=== PATIENT | female | born 1975 | race Caucasian/White ===

== ENCOUNTER 2016-10-25 09:17 | Emergency (ER) ==
[2016-10-25 09:21] VITALS: BP 153/92; TEMP 98.7; BMI 50.5
--- NOTE | 2016-10-25 09:29 | ED.PDOC ---
General ED Provider: Dr. OLGA BUENO JR Chief Complaint: Chest Pain Stated Complaint: patient states she has chest pain that woke her up at 0900. states it is constant and squeezing with occassionally sharp pains. denies radiation or any other symptoms with it. states she does have a headache.[End] 0900 98.7 74 16 97% 153/92 9/10 HEADACHE SINCE LAST NIGHT CENTRAL SHARP CHEST PAIN PLEURITIC HAS HAD CHRONIC COUGH INCREASED FOR PAST ONE WEEK Time Seen by Physician: 09:29 Mode of Arrival: Walk-In Information Source: Patient Exam Limitations: No limitations Nursing and Triage Documentation Reviewed and Agree: No Review of Systems - Review Of Systems Constitutional: Reports: Malaise Eyes: Reports: No symptoms Ears, Nose, Mouth, Throat: Reports: No symptoms Respiratory: Reports: Cough Cardiac: Reports: Chest pain (squeezing) GI: Reports: No symptoms : Reports: No symptoms Musculoskeletal: Reports: Other Skin: Reports: No symptoms Neurological: Reports: Headache Endocrine: Reports: No symptoms Hematologic/Lymphatic: Reports: No symptoms All Other Systems: Other Past Medical History - Past Medical History Endocrine: Reports: None Cardiovascular: Reports: Hypertension Respiratory: Reports: COPD, Asthma Hematological: Reports: None Gastrointestinal: Reports: GERD, Liver (HEPATITIS C), Other (chronic abd pain) Genitourinary: Reports: None Neuro/Psych: Reports: Migraine, Anxiety, Depression, Bipolar Disorder Musculoskeletal: Reports: Arthritis, Back Pain, Joint Pain (knee) Cancer: Reports: Other (uterine cancer) Last Menstrual Period: n/a Other Pertinent Past Medical History: CHRONIC BACK-pain;BACK AND KNEE PROBLEMS - Surgical History General Surgical History: Reports: Hysterectomy, Tubal ligation, Cholecystectomy , Tonsillectomy, Orthopedic (ARM AND HAND SURGERY) - Family History Family History: Reports: Unknown - Social History Smoking Status: Current every day smoker Hx Substance Use: Yes Alcohol Screening: None Physical Exam - Physical Exam Appearance: Well-appearing, Obese Pain Distress: Moderate ENT: Ears normal, Nose normal, Oropharynx normal Neck: Supple Respiratory: Rhonchi Cardiovascular: RRR, Pulses normal, No rub, No murmur GI/: Soft, Nontender, No masses, Bowel sounds normal, No Organomegaly Musculoskeletal: Normal strength, ROM intact, No edema, No calf tenderness Skin: Warm, Dry, Normal color Neurological: Sensation intact, Motor intact, Reflexes intact, Cranial nerves intact, Alert, Oriented Psychiatric: Affect appropriate, Mood appropriate Interpretation - Radiology Interpretation Radiology Interpretation By: Radiologist Radiology Results: Negative Exam Interpreted: Portable CXR Critical Care Note - Critical Care Note Total Time (mins): 5 Course - Course Hematology/Chemistry: 10/25/16 09:55 10/25/16 09:55 Orders, Labs, Meds: Lab Review 10/25/16 09:55 WBC 6.84 RBC 4.51 Hgb 14.0 Hct 42.3 MCV 93.8 MCH 31.0 MCHC 33.1 RDW Coeff of Miguel 13.2 Plt Count 210 Immature Gran % (Auto) 0.4 Neut % (Auto) 62.8 Lymph % (Auto) 26.8 [place] % (Auto) 5.7 Eos % (Auto) 3.9 Baso % (Auto) 0.4 Immature Gran # (Auto) 0.0 Neut # 4.3 Lymph # 1.8 [place] # 0.4 Eos # 0.3 Baso # 0.0 D-Dimer 258.63 H Sodium 142 Potassium 4.2 Chloride 106 Carbon Dioxide 26 Anion Gap 14.2 BUN 10 Creatinine 0.76 Estimated GFR (MDRD) 84.00 BUN/Creatinine Ratio 13.15 Glucose 103 Calcium 9.0 Total Bilirubin 0.26 AST 43 H ALT 49 Alkaline Phosphatase 126 H Total Creatine Kinase 90 Troponin I < 0.0100 B-Natriuretic Peptide 83 Total Protein 7.0 Albumin 3.2 L Globulin 3.8 Albumin/Globulin Ratio 0.84 Orders Category Date Time Status EKG-(ED ONLY) Stat CARDIO 10/25/16 09:48 Completed B-TYPE NATRIURETIC PEPTIDE Stat LAB 10/25/16 09:55 Completed CBC W/ AUTO DIFF Stat LAB 10/25/16 09:55 Completed COMPREHENSIVE METABOLIC PANEL Stat LAB 10/25/16 09:55 Completed CREATINE KINASE Stat LAB 10/25/16 09:55 Completed D-DIMER Stat LAB 10/25/16 09:55 Completed TROPONIN I Stat LAB 10/25/16 09:55 Completed Benzonatate [Tessalon Perles] MEDS 10/25/16 09:41 Discontinued 200 mg PO ONCE STA Butorphanol Tartrate [Stadol] MEDS 10/25/16 09:40 Discontinued 2 mg IVP ONCE STA Butorphanol Tartrate [Stadol] MEDS 10/25/16 10:59 Discontinued 2 mg IVP ONCE STA Diphenhydramine Inj [Benadryl] MEDS 10/25/16 09:36 Discontinued 50 mg IVP ONCE STA Methylprednisolone Sod Succ/Pf [Solu-Medrol 125 mg] MEDS 10/25/16 09:39 Discontinued 125 mg IVP ONCE STA CHEST, 1V AP ONLY Stat RADS 10/25/16 09:48 Completed Medications Discontinued Medications Generic Name Dose Route Start Last Admin Trade Name Olvin PRN Reason Stop Dose Admin Benzonatate 200 mg 10/25/16 09:41 10/25/16 09:49 Tessalon Perles PO 10/25/16 09:42 200 mg ONCE STA Administration Butorphanol Tartrate 2 mg 10/25/16 09:40 10/25/16 10:12 Stadol IVP 10/25/16 09:41 2 mg ONCE STA Administration Butorphanol Tartrate 2 mg 10/25/16 10:59 10/25/16 11:10 Stadol IVP 10/25/16 11:00 2 mg ONCE STA Administration Diphenhydramine HCl 50 mg 10/25/16 09:36 10/25/16 10:11 Benadryl IVP 10/25/16 09:37 50 mg ONCE STA Administration Methylprednisolone Sodium Succinate 125 mg 10/25/16 09:39 10/25/16 10:09 Solu-Medrol 125 Mg IVP 10/25/16 09:40 125 mg ONCE STA Administration Vital Signs: Temp Pulse Resp BP Pulse Ox 10/25/16 09:18 98.7 F 74 16 153/92 H 97 SARAH Risk Score SARAH Risk Score: Risk Score Odds of by 30D 0 0.1 (0.1-0.2) 1 0.3 (0.2-0.3) 2 0.4 (0.3-0.5) 3 0.7 (0.6-0.9) 4 1.2 (1.0-1.5) 5 2.2 (1.9-2.6) 6 3.0 (2.5-3.6) 7 4.8 (3.8-6.1) Departure - Departure Time of Disposition: 11:22 Disposition: HOME SELF-CARE Discharge Problem: Pleurisy, COPD exacerbation Instructions: How to Stop Smoking (ED), Acute Headache (ED), COPD (Chronic Obstructive Pulmonary Disease) (ED), Pleurisy (ED) Condition: Good Pt referred to PMD for follow-up: Yes Additional Instructions: increase fluids avoid tobacco smoke may use tessalon for cough follwo up wtih PMD 1 week sooner if fever or short of breath Prescriptions: Benzonatate [Tessalon Perles] 200 mg PO TID PRN #20 capsule PRN Reason: Cough Allergies/Adverse Reactions: Allergies acetaminophen [From [place]] Allergy (Unverified 10/25/16 09:22) swelling in feet and hands hydrocodone bitartrate [From [place]] Allergy (Unverified 10/25/16 09:22) swelling in feet and hands aspirin Adverse Reaction (Unverified 10/25/16 09:22) codeine Adverse Reaction (Verified 10/25/16 09:30) ketorolac [From Toradol] Adverse Reaction (Verified 10/25/16 09:22) Swelling Penicillins Adverse Reaction (Unverified 10/25/16 09:22) sumatriptan [From Imitrex] Adverse Reaction (Unverified 10/25/16 09:22) "messes with my heart" sumatriptan succinate [From Imitrex] Adverse Reaction (Unverified 10/25/16 09:22 ) "messes with my heart" tramadol [From Ultram] Adverse Reaction (Verified 10/25/16 09:22) Hives patient states she is not actually allergic to this Home Medications: Ambulatory Orders Budesonide/Formoterol Fumarate [Symbicort 80-4.5 Mcg Inhaler] 2 puff IH BID Fluticasone Propionate [Flonase] 1 spray NS DAILY 11/01/15 Ipratropium/Albuterol Sulfate [Combivent Respimat Inhal [place]] 1 spray IH BID Multivitamin [Daily Multiple Vitamin] 1 each PO DAILY 11/01/15 Prazosin HCl 3 mg PO BEDTIME 11/01/15 Venlafaxine HCl [Effexor] 75 mg PO DAILY 04/08/16 Benztropine Mesylate [Cogentin] 0.5 mg PO BID 08/04/16 Haloperidol 1 tab PO BID 08/04/16 Lamotrigine [Lamictal] 2 tab PO BID 08/04/16 Loratadine 10 mg PO DAILY 08/04/16 Omeprazole [Prilosec] 20 mg PO ONCE 08/04/16 Tizanidine HCl 1 tab PO BID 08/04/16 Topiramate [Topamax] 1 tab PO BID 08/04/16 Methocarbamol [Robaxin] 500 mg PO TID PRN #14 tablet 08/23/16 Benzonatate [Tessalon Perles] 200 mg PO TID PRN #20 capsule 10/25/16
[2016-10-25] MEDS ORDERED: SOLU-MEDROL 125 MG 125 MG in SODIUM CHLORIDE 50 ML IV ONE (09:36)
[2016-10-25] MEDS ORDERED: BENADRYL IVP STA (09:36)
[2016-10-25] MEDS ORDERED: SOLU-MEDROL 125 MG IVP STA (09:39)
[2016-10-25] MEDS ORDERED: STADOL IVP STA ×2 (09:40→10:59)
[2016-10-25] MEDS ORDERED: TESSALON PERLES PO STA (09:41)
[2016-10-25 10:06] LABS: BASOPHILS % (AUTO) 0.4 % (0.0-3.0); EOSINOPHILS # (AUTO) 0.3 K/ul (0.0-0.7); EOSINOPHILS % (AUTO) 3.9 % (0.0-7.0); HEMATOCRIT 42.3 % (37.0-47.0); IMMATURE GRANULOCYTE % (AUTO) 0.4 % (0.0-5.0); LYMPHOCYTES # (AUTO) 1.8 K/uL (0.60-3.4); LYMPHOCYTES % (AUTO) 26.8 (10.0-50.0); MEAN CORPUSCULAR HGB CONC 33.1 (31.8-35.4); MEAN CORPUSCULAR VOLUME 93.8 fl (81.0-99.0); MONOCYTES # (AUTO) 0.4 K/uL (0.4-2.0); MONOCYTES % (AUTO) 5.7 (0-10); NEUTROPHILS # (AUTO) 4.3 K/ul (2.0-6.9); NEUTROPHILS % (AUTO) 62.8; PLATELET COUNT 210 10^3/uL (140-440); RED BLOOD COUNT 4.51 10^6/ul (4.20-5.40); WHITE BLOOD COUNT 6.84 K/ul (4.6-10.2)
--- NOTE | 2016-10-25 10:22 | DI ---
EXAM: Single view of the chest. History: Chest pain. Comparison: Chest radiograph 11/01/2015 Findings: Heart size is normal. No focal consolidation. No appreciable pleural fluid and no pneum othorax. No acute osseous abnormalities. Impression: No acute cardiopulmonary process.
[2016-10-25 10:33] LABS: ALANINE AMINOTRANSFERASE 49 U/L (12-78); ALBUMIN 3.2 g/dL (3.4-5.0); ALBUMIN/GLOBULIN RATIO 0.84; ALKALINE PHOSPHATASE 126 U/L (42-98); ANION GAP 14.2; ASPARTATE AMINO TRANSFERASE 43 U/L (15-37); BILIRUBIN,TOTAL 0.26 mg/dL (0.00-1.20); BLOOD UREA NITROGEN 10 mg/dL (7-18); BUN/CREATININE RATIO 13.15; CARBON DIOXIDE 26 mmol/L (21-32); CHLORIDE 106 mmol/L (98-107); CREATINE KINASE 90 U/L; CREATININE 0.76 mg/dL (0.60-1.30); GLUCOSE 103 mg/dL (70-110); POTASSIUM 4.2 mmol/L (3.5-5.10); SODIUM 142 mmol/L (136-145)
== END 2016-10-25 11:46 | disposition home or self-care (01) ==
LOC: ED 09:17
DX: R09.1 Pleurisy (principal); J44.1 Chronic obstructive pulmonary disease with (acute) exacerbation; R51 Headache; F17.210 Nicotine dependence, cigarettes, uncomplicated; R07.9 Chest pain, unspecified; I10 Essential (primary) hypertension; Z79.899 Other long term (current) drug therapy
CPT/HCPCS: 36415; 80053; 82550; 83880; 84484; 85025; 85379; 93005; 93010; 96374; 96375; 96376; 99283

== ENCOUNTER 2016-11-01 14:18 | Emergency (ER) | payer OTHER ==
[2016-11-01 14:18] VITALS: BMI 50.5
[2016-11-01 14:26] VITALS: BP 116/80; TEMP 99.3
[2016-11-01] MEDS ORDERED: NORCO 10-325 PO STA (15:33)
--- NOTE | 2016-11-01 16:34 | CT ---
EXAM: CT lumbar spine without contrast HISTORY: Pain, fall COMPARISON: 01/01/2016 TECHNIQUE: Performed without intravenous contrast. Coronal and sagittal reformatted images obtaine d. FINDINGS: The vertebral bodies are normal in height. No fracture. No subluxation. Multilevel mar ginal osteophyte formation. Mild multilevel intervertebral disc is narrowing Moderate intervertebra l space and T11-C12 and mild to moderate intervertebral disc is narrowing L3-L4 and L4-L5. Sacroili ac joints intact. Aorta normal in caliber. One or two right renal calculi measuring approximate 1 mm. T12-L1: No central canal or neural foramen. L1-L2: No central canal or neural foraminal narrowing. L2-L3: No central canal or neural foramen. L3-L4: Posterior disc osteophyte complex and facet arthrosis causing mild bilateral neural foramina l narrowing. L4-L5: Posterior disc osteophyte complex and facet arthrosis causing moderate bilateral neural fora men. L5-S1: Posterior disc osteophyte complex and facet arthrosis causing mild bilateral neural foramina . IMPRESSION: 1. No fracture or subluxation. 2. Chronic discogenic degenerative disease and facet arthrosis. 3. Punctate right nephrolithiasis. No hydronephrosis.
--- NOTE | 2016-11-01 16:40 | ED.PDOC ---
General ED Provider: Dr. SOHAM GEIGER Chief Complaint: Fall Stated Complaint: fall , l spine pain Time Seen by Physician: 14:30 (no neck pain no thoracic pain) Mode of Arrival: Walk-In Information Source: Patient Exam Limitations: No limitations Primary Care Provider: STEPHANIE FLORES Nursing and Triage Documentation Reviewed and Agree: Yes Review of Systems - Review Of Systems Constitutional: Reports: No symptoms Eyes: Reports: No symptoms Ears, Nose, Mouth, Throat: Reports: No symptoms Respiratory: Reports: No symptoms Cardiac: Reports: No symptoms GI: Reports: No symptoms : Reports: No symptoms Musculoskeletal: Reports: Back pain Skin: Reports: No symptoms Neurological: Reports: No symptoms Endocrine: Reports: No symptoms Hematologic/Lymphatic: Reports: No symptoms All Other Systems: Reviewed and Negative Past Medical History - Past Medical History Endocrine: Reports: None Cardiovascular: Reports: Hypertension Respiratory: Reports: COPD, Asthma Hematological: Reports: None Gastrointestinal: Reports: GERD, Liver (HEPATITIS C), Other (chronic abd pain) Genitourinary: Reports: None Neuro/Psych: Reports: Migraine, Anxiety, Depression, Bipolar Disorder Musculoskeletal: Reports: Arthritis, Back Pain, Joint Pain (knee) Cancer: Reports: Other (uterine cancer) Last Menstrual Period: NA Other Pertinent Past Medical History: CHRONIC BACK-pain;BACK AND KNEE PROBLEMS - Surgical History General Surgical History: Reports: Hysterectomy, Tubal ligation, Cholecystectomy , Tonsillectomy, Orthopedic (ARM AND HAND SURGERY) - Family History Family History: Reports: Unknown - Social History Smoking Status: Current every day smoker Hx Substance Use: No Alcohol Screening: None - Immunizations Tetanus Shot up to Date: No Physical Exam - Physical Exam Appearance: Well-appearing, No pain distress, Well-nourished Eyes: LEONORA, EOMI, Conjunctiva clear ENT: Ears normal, Nose normal, Oropharynx normal Respiratory: Airway patent, Breath sounds clear, Breath sounds equal, Respirations nonlabored Cardiovascular: RRR, Pulses normal, No rub, No murmur GI/: Soft, Nontender, No masses, Bowel sounds normal, No Organomegaly Musculoskeletal: Normal strength, ROM intact, No edema, No calf tenderness Skin: Warm, Dry, Normal color Neurological: Sensation intact, Motor intact, Reflexes intact, Cranial nerves intact, Alert, Oriented Psychiatric: Affect appropriate, Mood appropriate Interpretation - Radiology Interpretation Radiology Interpretation By: Radiologist Critical Care Note - Critical Care Note Total Time (mins): 0 Course - Course Orders, Labs, Meds: Orders Category Date Time Status Hydrocodone Bit/Acetaminophen [[place] 10-325] MEDS 11/01/16 15:33 Discontinued 1 tab PO ONCE STA CT LUMBAR SPINE W/O CONTRAST Stat RADS 11/01/16 15:34 Completed Medications Discontinued Medications Generic Name Dose Route Start Last Admin Trade Name Freq PRN Reason Stop Dose Admin Acetaminophen/Hydrocodone Bitart 1 tab 11/01/16 15:33 11/01/16 15:54 [place] 10-325 PO 11/01/16 15:34 1 tab ONCE STA Administration Vital Signs: Temp Pulse Resp BP Pulse Ox 11/01/16 14:23 99.3 F 85 18 116/80 95 Departure - Departure Time of Disposition: 17:00 Disposition: HOME SELF-CARE Discharge Problem: Low back pain Qualifiers: Chronicity: unspecified Instructions: Back Pain (ED), Acute Low Back Pain (ED) Condition: Good Pt referred to PMD for follow-up: No Additional Instructions: Please call your Family Physician as soon as possible to schedule a follow-up appointment. Prescriptions: Hydrocodone/Acetaminophen [[place] 5-325 Tablet] 1 each PO Q6HR PRN #3 tablet PRN Reason: PAIN Allergies/Adverse Reactions: Allergies aspirin Adverse Reaction (Unverified 10/25/16 09:22) codeine Adverse Reaction (Verified 10/25/16 09:30) ketorolac [From Toradol] Adverse Reaction (Verified 10/25/16 09:22) Swelling Penicillins Adverse Reaction (Unverified 10/25/16 09:22) sumatriptan [From Imitrex] Adverse Reaction (Unverified 10/25/16 09:22) "messes with my heart" sumatriptan succinate [From Imitrex] Adverse Reaction (Unverified 10/25/16 09:22 ) "messes with my heart" tramadol [From Ultram] Adverse Reaction (Verified 10/25/16 09:22) Hives patient states she is not actually allergic to this Home Medications: Ambulatory Orders Budesonide/Formoterol Fumarate [Symbicort 80-4.5 Mcg Inhaler] 2 puff IH BID Fluticasone Propionate [Flonase] 1 spray NS DAILY 11/01/15 Ipratropium/Albuterol Sulfate [Combivent Respimat Inhal [place]] 1 spray IH BID Multivitamin [Daily Multiple Vitamin] 1 each PO DAILY 11/01/15 Prazosin HCl 3 mg PO BEDTIME 11/01/15 Venlafaxine HCl [Effexor] 75 mg PO DAILY 04/08/16 Benztropine Mesylate [Cogentin] 0.5 mg PO BID 08/04/16 Haloperidol 1 tab PO BID 08/04/16 Lamotrigine [Lamictal] 2 tab PO BID 08/04/16 Loratadine 10 mg PO DAILY 08/04/16 Omeprazole [Prilosec] 20 mg PO ONCE 08/04/16 Tizanidine HCl 1 tab PO BID 08/04/16 Topiramate [Topamax] 1 tab PO BID 08/04/16 Hydrocodone/Acetaminophen [[place] 5-325 Tablet] 1 each PO Q6HR PRN #3 tablet
== END 2016-11-01 16:49 | disposition home or self-care (01) ==
LOC: ED 14:18
DX: M54.5 Low back pain (principal); W19.XXXA Unspecified fall, initial encounter; F17.210 Nicotine dependence, cigarettes, uncomplicated
CPT/HCPCS: 99283

== ENCOUNTER 2016-11-22 08:53 | Emergency (ER) ==
[2016-11-22 08:59] VITALS: BP 131/82; TEMP 100.1; BMI 63.3
--- NOTE | 2016-11-22 09:25 | ED.PDOC ---
General ED Provider: Dr. SOHAM GEIGER Chief Complaint: Back Pain Stated Complaint: low back pain Time Seen by Physician: 09:00 (may present at all times ) Information Source: Patient Exam Limitations: No limitations Primary Care Provider: STEPHANIE FLORES Nursing and Triage Documentation Reviewed and Agree: Yes Musculoskeletal Complaint Exam - Back Pain Complaint/Exam Mechanism of Injury: Reports: No known trauma Onset/Duration: 1day after lifting Symptoms Are: Still present Timing: Constant Episodes Lasting: Hours Initial Severity: Moderate Current Severity: Moderate Character: Reports: Aching, Throbbing, Spasmodic Aggravating: Reports: Movements, Lifting, Bending, Walking Alleviating: Reports: Rest, Position Associated Signs and Symptoms: Denies: Swelling, Redness, Bruising, Fever, Weakness, Numbness, Tingling, Abdominal pain, Flank pain, Bladder incontinence, Bowel incontinence, Weight loss, Pain with weight bearing Related History: Reports: Similar episode TAD Risk Factors: Reports: None Cauda Equina Risk Factors: Reports: None Epidural Abcess Risk Factors: Reports: None Related Surgical History: Reports: None Focal Tenderness: No Paraspinal Muscle Tenderness: No Paraspinal Muscle Spasm: No Scoliosis: No Lordosis: No Kyphosis: No SLR Test: Right Negative, Left Negative Hip Motion Testing Pain: Right Negative, Left Negative Focal Weakness: Present: None Focal Sensory Loss: Present: None Gait: Present: Normal Differential Diagnoses: Strain, Sprain Review of Systems - Review Of Systems Constitutional: Reports: No symptoms Eyes: Reports: No symptoms Ears, Nose, Mouth, Throat: Reports: No symptoms Respiratory: Reports: No symptoms Cardiac: Reports: No symptoms GI: Reports: No symptoms : Reports: No symptoms Musculoskeletal: Reports: Back pain Skin: Reports: No symptoms Neurological: Reports: No symptoms Endocrine: Reports: No symptoms Hematologic/Lymphatic: Reports: No symptoms All Other Systems: Reviewed and Negative Past Medical History - Past Medical History Endocrine: Reports: None Cardiovascular: Reports: Hypertension Respiratory: Reports: COPD, Asthma Hematological: Reports: None Gastrointestinal: Reports: GERD, Liver (HEPATITIS C), Other (chronic abd pain) Genitourinary: Reports: None Neuro/Psych: Reports: Migraine, Anxiety, Depression, Bipolar Disorder Musculoskeletal: Reports: Arthritis, Back Pain, Joint Pain (knee) Cancer: Reports: Other (uterine cancer) Last Menstrual Period: hysterectomy Other Pertinent Past Medical History: CHRONIC BACK-pain;BACK AND KNEE PROBLEMS - Surgical History General Surgical History: Reports: Hysterectomy, Tubal ligation, Cholecystectomy , Tonsillectomy, Orthopedic (ARM AND HAND SURGERY) - Family History Family History: Reports: Unknown - Social History Smoking Status: Current every day smoker Hx Substance Use: No Alcohol Screening: None Physical Exam - Physical Exam Appearance: Well-appearing, No pain distress, Well-nourished Eyes: LEONORA, EOMI, Conjunctiva clear ENT: Ears normal, Nose normal, Oropharynx normal Respiratory: Airway patent, Breath sounds clear, Breath sounds equal, Respirations nonlabored Cardiovascular: RRR, Pulses normal, No rub, No murmur GI/: Soft, Nontender, No masses, Bowel sounds normal, No Organomegaly Musculoskeletal: Normal strength, ROM intact, No edema, No calf tenderness Skin: Warm, Dry, Normal color Neurological: Sensation intact, Motor intact, Reflexes intact, Cranial nerves intact, Alert, Oriented Psychiatric: Affect appropriate, Mood appropriate Critical Care Note - Critical Care Note Total Time (mins): 0 Course - Course Vital Signs: Temp Pulse Resp BP Pulse Ox 11/22/16 08:53 100.1 F H 119 H 20 131/82 97 Departure - Departure Time of Disposition: 09:24 Disposition: HOME SELF-CARE Discharge Problem: Backache Instructions: Back Pain (ED), Low Back Strain (ED) Condition: Good Pt referred to PMD for follow-up: Yes Additional Instructions: Please call your Family Physician as soon as possible to schedule a follow-up appointment. Allergies/Adverse Reactions: Allergies aspirin Adverse Reaction (Verified 11/22/16 09:01) codeine Adverse Reaction (Verified 11/22/16 09:01) ketorolac [From Toradol] Adverse Reaction (Verified 11/22/16 09:01) Swelling Penicillins Adverse Reaction (Verified 11/22/16 09:01) sumatriptan [From Imitrex] Adverse Reaction (Verified 11/22/16 09:01) "messes with my heart" sumatriptan succinate [From Imitrex] Adverse Reaction (Verified 11/22/16 09:01) "messes with my heart" tramadol [From Ultram] Adverse Reaction (Verified 11/22/16 09:01) Hives patient states she is not actually allergic to this Home Medications: Ambulatory Orders Budesonide/Formoterol Fumarate [Symbicort 80-4.5 Mcg Inhaler] 2 puff IH BID Fluticasone Propionate [Flonase] 1 spray NS DAILY 11/01/15 Ipratropium/Albuterol Sulfate [Combivent Respimat Inhal [place]] 1 spray IH BID Multivitamin [Daily Multiple Vitamin] 1 each PO DAILY 11/01/15 Prazosin HCl 3 mg PO BEDTIME 11/01/15 Venlafaxine HCl [Effexor] 75 mg PO DAILY 04/08/16 Benztropine Mesylate [Cogentin] 0.5 mg PO BID 08/04/16 Haloperidol 1 tab PO BID 08/04/16 Lamotrigine [Lamictal] 2 tab PO BID 08/04/16 Loratadine 10 mg PO DAILY 08/04/16 Omeprazole [Prilosec] 20 mg PO ONCE 08/04/16 Tizanidine HCl 1 tab PO BID 08/04/16 Topiramate [Topamax] 1 tab PO BID 08/04/16 Hydrocodone/Acetaminophen [[place] 5-325 Tablet] 1 each PO Q6HR PRN #7 tablet 04/02 Disposition Discussed With: Patient
== END 2016-11-22 09:31 | disposition home or self-care (01) ==
LOC: ED 08:53
DX: M54.5 Low back pain (principal); F17.210 Nicotine dependence, cigarettes, uncomplicated
CPT/HCPCS: 99282

== ENCOUNTER 2016-11-24 06:55 | Outpatient (CLI) ==
[2016-11-24 07:17] VITALS: BMI 58.1
== END 2016-11-24 06:56 ==
LOC: AMBL 06:55
PROVIDERS: ATTEND Family Medicine
DX: M54.5 Low back pain (principal)

== ENCOUNTER 2016-11-24 07:08 | Emergency (ER) ==
[2016-11-24 07:17] VITALS: BP 107/82; TEMP 97.6; BMI 58.1
--- NOTE | 2016-11-24 07:51 | ED.PDOC ---
General ED Provider: Dr. OLGA BUENO JR Chief Complaint: Back Pain Stated Complaint: SEVERE LOW BACK PAIN. RADIATES DOWN BOTH LEGS - LEFT WORSE THAN RIGHT. BOTH FEET SWOLLEN. DIFFICULTY WALKING.[End]97.6 84 20 97% 107/82 07/26 BACK PAIN AND FEET SWELLING. APPT WITH PAIN MANAGEMENT [End]FEET SWOLLEN.[End]. r l leg lower lmbar. NEURONTIN AT 0600. . 11/01/16 Hydrocodone Bit/Acetaminophen [[place] 10-325]MEDS 11/01/16 STA. 11/01/16 CT LUMBAR SPINE W/O CONTRAST StatRADS 11/01. ---. 10/25/16 Benzonatate 200 mg 10/25/16 STA. 10/25/16 Butorphanol Tartrate 2 mg 10/25/16 STA. 10/25/16 Butorphanol Tartrate 2 mg 10/25/16 STA. 10/25/16 Benadryl IVP 10/25/16 09:37 50 mg. STA. 10/25/16 Methylprednisolone Sodium Succinate 125 mg 10/25/16 STA. ---. 10/12/16 Diphenhydramine HCl 50 mg 10/12/16 STA. 10/12/16 Sodium Chloride IV 10/12/16 1,000 BOLUS STA. 10/12 Methylprednisolone Sodium Succinate 125 mg 10/12/16 STA. ----. 08/25/16 Albuterol/Ipratropium 1 vial 08/25/16 STA. 08/25/16 Dexamethasone Sodium Phosphate 8 mg 08/25/16 STA. --. 08/23/16 Toradol IM 08/23/16 60 mg STA. 05/01 Morphine Sulfate 4 mg 08/23/16 STA. 08/23/16 Promethazine HCl 25 mg 08/23 Time Seen by Physician: 07:51 Mode of Arrival: Ambulance Information Source: Patient, EMT Exam Limitations: No limitations Primary Care Provider: STEPHANIE FLORES Nursing and Triage Documentation Reviewed and Agree: No Review of Systems - Review Of Systems Constitutional: Reports: Malaise, Weakness Eyes: Reports: No symptoms Ears, Nose, Mouth, Throat: Reports: No symptoms Respiratory: Reports: No symptoms Cardiac: Reports: No symptoms GI: Reports: No symptoms : Reports: No symptoms Musculoskeletal: Reports: Other Skin: Reports: No symptoms Neurological: Reports: Tingling, Weakness, Other (pain down left leg) Endocrine: Reports: Other Hematologic/Lymphatic: Reports: No symptoms All Other Systems: Other Past Medical History - Past Medical History Endocrine: Reports: None Cardiovascular: Reports: Hypertension Respiratory: Reports: COPD, Asthma Hematological: Reports: None Gastrointestinal: Reports: GERD, Liver (HEPATITIS C), Other (chronic abd pain) Genitourinary: Reports: None Neuro/Psych: Reports: Migraine, Anxiety, Depression, Bipolar Disorder Musculoskeletal: Reports: Arthritis, Back Pain, Joint Pain (knee) Cancer: Reports: Other (uterine cancer) Last Menstrual Period: NA Other Pertinent Past Medical History: CHRONIC BACK-pain;OSTEOSPONDILITS;BACK AND KNEE PROBLEMS - Surgical History General Surgical History: Reports: Hysterectomy, Tubal ligation, Cholecystectomy , Tonsillectomy, Orthopedic (ARM AND HAND SURGERY) - Family History Family History: Reports: Unknown - Social History Smoking Status: Former smoker Hx Substance Use: No Alcohol Screening: None Physical Exam - Physical Exam Appearance: Ill-appearing, Obese Ill-appearing: Moderate Pain Distress: Moderate Eyes: LEONORA, EOMI, Conjunctiva clear ENT: Ears normal, Nose normal, Oropharynx normal Neck: Supple Respiratory: Airway patent, Breath sounds clear, Breath sounds equal, Respirations nonlabored Cardiovascular: RRR, Pulses normal, No rub, No murmur GI/: Soft Musculoskeletal: Normal strength, ROM intact, No edema, No calf tenderness Skin: Warm, Dry, Normal color Neurological: Sensation intact, Motor intact, Cranial nerves intact (note leg symptoms), Alert, Oriented Psychiatric: Depressed Critical Care Note - Critical Care Note Total Time (mins): 0 Course - Course Orders, Labs, Meds: Lab Review 11/24/16 07:47 Urine Color Yellow Urine Clarity Clear Urine pH 7.0 Ur Specific Helper 1.010 Urine Protein Negative Urine Glucose (UA) Negative Urine Ketones Negative Urine Blood Negative Urine Nitrite Negative Urine Bilirubin Negative Urine Urobilinogen 0.2 Ur Leukocyte Esterase Negative Orders Category Date Time Status ED IV/MEDIPORT/POWERPORT .ONCE EMERGENCY 11/24/16 08:08 Active URINALYSIS C & S IF INDICATED Stat LAB 11/24/16 07:47 Completed 0.9 % Sodium Chloride [Saline Flush] MEDS 11/24/16 08:08 Active 1 syr IVF PRN PRN Ketorolac Tromethamine [Toradol] MEDS 11/24/16 08:08 Discontinued 30 mg IVP ONCE STA Ondansetron HCl/Pf [Zofran 4 mg/2 ml] MEDS 11/24/16 08:08 Discontinued 4 mg IVP ONCE STA Medications Generic Name Dose Route Start Last Admin Trade Name Freq PRN Reason Stop Dose Admin Sodium Chloride 1 syr 11/24/16 08:08 Saline Flush IVF PRN PRN To flush IV Discontinued Medications Generic Name Dose Route Start Last Admin Trade Name Freq PRN Reason Stop Dose Admin Ketorolac Tromethamine 30 mg 11/24/16 08:08 Toradol IVP 11/24/16 08:09 ONCE STA Ondansetron HCl 4 mg 11/24/16 08:08 Zofran 4 Mg/2 Ml IVP 11/24/16 08:09 ONCE STA Vital Signs: Temp Pulse Resp BP Pulse Ox 11/24/16 07:11 97.6 F 84 20 107/82 97 Departure - Departure Time of Disposition: 09:25 Disposition: HOME SELF-CARE Discharge Problem: Back pain with left-sided sciatica Instructions: Sciatica (ED), Lower Back Exercises (ED) Condition: Fair Pt referred to PMD for follow-up: Yes Additional Instructions: call PMD follow up for increased pain, discuss MRI if indicated follow up with pain management as scheduled avoid high carbohydrate foods, NO SUGAR, after steroid shots home medication for pain may add benadryl to help pain meds return if worse Allergies/Adverse Reactions: Allergies aspirin Adverse Reaction (Verified 11/24/16 07:10) codeine Adverse Reaction (Verified 11/24/16 07:10) Penicillins Adverse Reaction (Verified 11/24/16 07:10) sumatriptan [From Imitrex] Adverse Reaction (Verified 11/24/16 07:10) "messes with my heart" sumatriptan succinate [From Imitrex] Adverse Reaction (Verified 11/24/16 07:10) "messes with my heart" tramadol [From Ultram] Adverse Reaction (Verified 11/24/16 07:10) Hives patient states she is not actually allergic to this Home Medications: Ambulatory Orders Budesonide/Formoterol Fumarate [Symbicort 80-4.5 Mcg Inhaler] 2 puff IH BID Fluticasone Propionate [Flonase] 1 spray NS DAILY 11/01/15 Ipratropium/Albuterol Sulfate [Combivent Respimat Inhal [place]] 1 spray IH BID Multivitamin [Daily Multiple Vitamin] 1 each PO DAILY 11/01/15 Prazosin HCl 3 mg PO BEDTIME 11/01/15 Venlafaxine HCl [Effexor] 75 mg PO DAILY 04/08/16 Benztropine Mesylate [Cogentin] 0.5 mg PO BID 08/04/16 Haloperidol 1 tab PO BID 08/04/16 Lamotrigine [Lamictal] 2 tab PO BID 08/04/16 Loratadine 10 mg PO DAILY 08/04/16 Omeprazole [Prilosec] 20 mg PO ONCE 08/04/16 Tizanidine HCl 1 tab PO BID 08/04/16 Topiramate [Topamax] 1 tab PO BID 08/04/16 Hydrocodone/Acetaminophen [[place] 5-325 Tablet] 1 each PO Q6HR PRN #7 tablet 04/02 Diphenhydramine HCl [Benadryl] 25 mg PO QID #30 capsule 11/24/16
[2016-11-24 07:54] LABS: BILIRUBIN,URINE Negative (NEGATIVE); KETONES,URINE Negative (NEGATIVE); LEUKOCYTE ESTERASE ,URINE Negative (NEGATIVE); NITRITE,URINE Negative (NEGATIVE); PROTEIN,URINE Negative (NEGATIVE); URINE, BLOOD Negative (NEGATIVE)
[2016-11-24 07:55] LABS: ADD URINE MICROSCOPIC NO
[2016-11-24] MEDS ORDERED: ZOFRAN 4 MG/2 ML IVP STA (08:08)
[2016-11-24] MEDS ORDERED: TORADOL IVP STA (08:08)
[2016-11-24] MEDS ORDERED: ZOFRAN 4 MG/2 ML IM STA (08:26)
[2016-11-24] MEDS ORDERED: TORADOL IM STA (08:26)
== END 2016-11-24 10:24 | disposition home or self-care (01) ==
LOC: ED 07:08
DX: M54.42 Lumbago with sciatica, left side (principal)
CPT/HCPCS: 81001; 96372; 99283

== ENCOUNTER 2016-12-01 08:50 | Emergency (ER) ==
[2016-12-01 08:57] VITALS: BP 143/86; TEMP 98.1; BMI 56.7
--- NOTE | 2016-12-01 09:27 | DI ---
EXAM: Right hand Three-view HISTORY: Pain COMPARISON: None FINDINGS: No acute fracture dislocation. Remodeling fifth metacarpal suggested, may be due to old trauma. The joints are normal. No focal soft tissue abnormality. IMPERSSION: Normal examination.
--- NOTE | 2016-12-01 09:30 | DI ---
EXAM: Three views of the left wrist HISTORY: Left wrist pain. COMPARISON: Same day left hand x-ray FINDINGS: There is no cortical irregularity or displaced fracture of the left wrist. Radiocarpal juan int is unremarkable. There is no lytic or blastic lesion identified. The carpal bones are unremark able. Metacarpals are unremarkable. Soft tissues are normal. IMPRESSION: No acute abnormality or displaced fracture of the left wrist.
--- NOTE | 2016-12-01 10:32 | ED.PDOC ---
General ED Provider: Dr. SOHAM GEIGER Chief Complaint: Extremity Pain/Injury Stated Complaint: left wrist and hand injury Time Seen by Physician: 09:00 (seen with nursing staff) Mode of Arrival: Walk-In Information Source: Patient Exam Limitations: No limitations Primary Care Provider: STEPHANIE FLORES Nursing and Triage Documentation Reviewed and Agree: Yes Musculoskeletal Complaint Exam - Hand/Wrist Complaint/Exam Location of Pain: Reports: Left, Hand, Wrist Mechanism of Injury: Reports: No known trauma Onset/Duration: 9 am Symptoms Are: Still present Initial Severity: Moderate Current Severity: Mild Location: Reports: Discrete Character: Reports: Dull, Aching Alleviating: Reports: None Aggravating: Reports: None Associated Signs and Symptoms: Denies: Swelling, Redness, Bruising, Fever, Weakness, Numbness, Tingling Related History: Reports: Similar episode (no snuff box pain) Review of Systems - Review Of Systems Constitutional: Reports: No symptoms Eyes: Reports: No symptoms Ears, Nose, Mouth, Throat: Reports: No symptoms Respiratory: Reports: No symptoms Cardiac: Reports: No symptoms GI: Reports: No symptoms : Reports: No symptoms Musculoskeletal: Reports: Joint pain (left wrist) Skin: Reports: No symptoms Neurological: Reports: No symptoms Endocrine: Reports: No symptoms Hematologic/Lymphatic: Reports: No symptoms All Other Systems: Reviewed and Negative Past Medical History - Past Medical History Endocrine: Reports: None Cardiovascular: Reports: Hypertension Respiratory: Reports: COPD, Asthma Hematological: Reports: None Gastrointestinal: Reports: GERD, Liver (HEPATITIS C), Other (chronic abd pain) Genitourinary: Reports: None Neuro/Psych: Reports: Migraine, Anxiety, Depression, Bipolar Disorder Musculoskeletal: Reports: Arthritis, Back Pain, Joint Pain (knee) Cancer: Reports: Other (uterine cancer) Last Menstrual Period: none Other Pertinent Past Medical History: CHRONIC BACK-pain;OSTEOSPONDILITS;BACK AND KNEE PROBLEMS - Surgical History General Surgical History: Reports: Hysterectomy, Tubal ligation, Cholecystectomy , Tonsillectomy, Orthopedic (ARM AND HAND SURGERY) - Family History Family History: Reports: Unknown - Social History Smoking Status: Former smoker Hx Substance Use: No Alcohol Screening: None Physical Exam - Physical Exam Appearance: Well-appearing, No pain distress, Well-nourished Eyes: LEONORA, EOMI, Conjunctiva clear ENT: Ears normal, Nose normal, Oropharynx normal Respiratory: Airway patent, Breath sounds clear, Breath sounds equal, Respirations nonlabored Cardiovascular: RRR, Pulses normal, No rub, No murmur GI/: Soft, Nontender, No masses, Bowel sounds normal, No Organomegaly Musculoskeletal: Normal strength, ROM intact, No edema, No calf tenderness Skin: Warm, Dry, Normal color Neurological: Sensation intact, Motor intact, Reflexes intact, Cranial nerves intact, Alert, Oriented Psychiatric: Affect appropriate, Mood appropriate Interpretation - Radiology Interpretation Radiology Interpretation By: Radiologist Radiology Results: No acute changes Critical Care Note - Critical Care Note Total Time (mins): 0 Course - Course Orders, Labs, Meds: Orders Category Date Time Status HAND, LEFT 3 VIEWS Stat RADS 12/01/16 08:59 Completed WRIST, LEFT 3 VIEWS Stat RADS 12/01/16 08:59 Completed Vital Signs: Temp Pulse Resp BP Pulse Ox 12/01/16 08:51 98.1 F 110 H 18 143/86 H 97 Departure - Departure Time of Disposition: 10:32 Disposition: HOME SELF-CARE Discharge Problem: Left wrist pain, Left hand pain Instructions: Wrist Sprain (ED) Condition: Good Pt referred to PMD for follow-up: No Additional Instructions: Please call your Family Physician as soon as possible to schedule a follow-up appointment. Allergies/Adverse Reactions: Allergies aspirin Adverse Reaction (Verified 12/01/16 08:57) codeine Adverse Reaction (Verified 12/01/16 08:57) Penicillins Adverse Reaction (Verified 12/01/16 08:57) sumatriptan [From Imitrex] Adverse Reaction (Verified 12/01/16 08:57) "messes with my heart" sumatriptan succinate [From Imitrex] Adverse Reaction (Verified 12/01/16 08:57) "messes with my heart" tramadol [From Ultram] Adverse Reaction (Verified 12/01/16 08:57) Hives patient states she is not actually allergic to this Home Medications: Ambulatory Orders Budesonide/Formoterol Fumarate [Symbicort 80-4.5 Mcg Inhaler] 2 puff IH BID Fluticasone Propionate [Flonase] 1 spray NS DAILY 11/01/15 Ipratropium/Albuterol Sulfate [Combivent Respimat Inhal [place]] 1 spray IH BID Multivitamin [Daily Multiple Vitamin] 1 each PO DAILY 11/01/15 Prazosin HCl 3 mg PO BEDTIME 11/01/15 Venlafaxine HCl [Effexor] 75 mg PO DAILY 04/08/16 Benztropine Mesylate [Cogentin] 0.5 mg PO BID 08/04/16 Haloperidol 1 tab PO BID 08/04/16 Lamotrigine [Lamictal] 2 tab PO BID 08/04/16 Loratadine 10 mg PO DAILY 08/04/16 Omeprazole [Prilosec] 20 mg PO ONCE 08/04/16 Tizanidine HCl 1 tab PO BID 08/04/16 Topiramate [Topamax] 1 tab PO BID 08/04/16 Hydrocodone/Acetaminophen [[place] 5-325 Tablet] 1 each PO Q6HR PRN #7 tablet 04/02 Diphenhydramine HCl [Benadryl] 25 mg PO QID #30 capsule 11/24/16
== END 2016-12-01 10:48 | disposition home or self-care (01) ==
LOC: ED 08:50
DX: M25.532 Pain in left wrist (principal); M79.642 Pain in left hand
CPT/HCPCS: 99283

== ENCOUNTER 2017-01-04 16:14 | Emergency (ER) ==
[2017-01-04 16:19] VITALS: BP 154/106; TEMP 99.2; BMI 56.1
--- NOTE | 2017-01-04 16:26 | ED.PDOC ---
General ED Provider: Dr. OLGA BUENO JR Chief Complaint: Headache Stated Complaint: migraine headache SINCE 01/03 AFTERNOON behind rt eye--no relief with tylenol/ibuprofen/toradol/aspirin--]headache since last pm--no relief with meds[ 99.2 110 20 97% 154/106 07/26 Time Seen by Physician: 18:34 Mode of Arrival: Walk-In Information Source: Patient Exam Limitations: No limitations Primary Care Provider: STEPHANIE FLORES Nursing and Triage Documentation Reviewed and Agree: Yes Review of Systems - Review Of Systems Constitutional: Reports: No symptoms Eyes: Reports: Pain, Photophobia Ears, Nose, Mouth, Throat: Reports: No symptoms Respiratory: Reports: No symptoms Cardiac: Reports: No symptoms GI: Reports: No symptoms : Reports: No symptoms Musculoskeletal: Reports: No symptoms Skin: Reports: No symptoms Neurological: Reports: Headache (BEHIND LEFT EYE) Endocrine: Reports: No symptoms Hematologic/Lymphatic: Reports: No symptoms All Other Systems: Other Past Medical History - Past Medical History Endocrine: Reports: None Cardiovascular: Reports: Hypertension Respiratory: Reports: COPD, Asthma Hematological: Reports: None Gastrointestinal: Reports: GERD, Liver (HEPATITIS C), Other (chronic abd pain) Genitourinary: Reports: None Neuro/Psych: Reports: Migraine, Anxiety, Depression, Bipolar Disorder Musculoskeletal: Reports: Arthritis, Back Pain, Joint Pain (knee) Cancer: Reports: Other (uterine cancer) Last Menstrual Period: hysterectomy Other Pertinent Past Medical History: CHRONIC BACK-pain;OSTEOSPONDILITS;BACK AND KNEE PROBLEMS - Surgical History General Surgical History: Reports: Hysterectomy, Tubal ligation, Cholecystectomy , Tonsillectomy, Orthopedic (ARM AND HAND SURGERY) - Family History Family History: Reports: Unknown - Social History Smoking Status: Former smoker Hx Substance Use: No Alcohol Screening: None Physical Exam - Physical Exam Appearance: Well-appearing, Obese Pain Distress: Moderate Eyes: LEONORA, EOMI, Conjunctiva clear ENT: Ears normal (ON EXAM NOTE PRIOR EXAM), Nose normal, Oropharynx normal Neck: Supple Respiratory: Airway patent, Breath sounds clear, Breath sounds equal, Respirations nonlabored Cardiovascular: RRR, Pulses normal, No rub, No murmur GI/: Soft, Nontender, No masses, Bowel sounds normal, No Organomegaly Musculoskeletal: Normal strength, ROM intact, No edema, No calf tenderness Skin: Warm, Dry, Normal color Neurological: Sensation intact, Motor intact, Reflexes intact, Cranial nerves intact, Alert, Oriented Psychiatric: Affect appropriate, Mood appropriate Physician Notification - Case Discussed Endorsed To/Discussed With: DR MAYNARD Time of Discussion: 19:00 (HEADACHE) Critical Care Note - Critical Care Note Total Time (mins): 0 Course - Course Orders, Labs, Meds: Orders Category Date Time Status IV [ED IV/MEDIPORT/POWERPORT] .ONCE EMERGENCY 01/04/17 18:00 Active 0.9 % Sodium Chloride [Saline Flush] MEDS 01/04/17 18:00 Discontinued 1 syr IVF PRN PRN Butorphanol Tartrate [Stadol] MEDS 01/04/17 19:01 Discontinued 2 mg IVP ONCE STA Diphenhydramine Inj [Benadryl] MEDS 01/04/17 18:15 Discontinued 50 mg .ROUTE .STK-MED ONE Diphenhydramine Inj [Benadryl] MEDS 01/04/17 18:30 Discontinued 50 mg IVP ONCE STA Diphenhydramine Inj [Benadryl] 50 mg MEDS 01/04/17 17:57 Discontinued 0.9 % Sodium Chloride [Sodium Chloride] 100 ml IV ONCE Methylprednisolone Sod Succ/Pf [Solu-Medrol 125 mg] MEDS 01/04/17 17:59 Discontinued 125 mg IVP ONCE STA Sodium Chloride 0.9% [Sodium Chloride] 1,000 ml MEDS 01/04/17 17:59 Discontinued IV BOLUS Medications Discontinued Medications Generic Name Dose Route Start Last Admin Trade Name Freq PRN Reason Stop Dose Admin Butorphanol Tartrate 2 mg 01/04/17 19:01 01/04/17 19:29 Stadol IVP 01/04/17 19:02 2 mg ONCE STA Administration Diphenhydramine HCl 50 mg 01/04/17 18:30 01/04/17 18:40 Benadryl IVP 01/04/17 18:31 50 mg ONCE STA Administration Diphenhydramine HCl 50 mg/ 101 mls @ 100 mls/hr 01/04/17 17:57 01/04/17 18:32 Sodium Chloride IV 01/04/17 18:57 Not Given ONCE STA Sodium Chloride 1,000 mls @ 1,000 mls/hr 01/04/17 17:59 01/04/17 18:27 Sodium Chloride IV 01/04/17 18:58 1,000 mls/hr BOLUS STA Administration Methylprednisolone Sodium Succinate 125 mg 01/04/17 17:59 01/04/17 18:27 Solu-Medrol 125 Mg IVP 01/04/17 18:00 125 mg ONCE STA Administration Sodium Chloride 1 syr 01/04/17 18:00 01/04/17 18:27 Saline Flush IVF 1 syr PRN PRN Administration To flush IV Vital Signs: Temp Pulse Resp BP Pulse Ox 01/04/17 16:15 99.2 F 110 H 20 154/106 H 97 Departure - Departure Time of Disposition: 18:36 Disposition: HOME SELF-CARE Discharge Problem: Headache Instructions: Migraine Headache (ED) Condition: Fair Pt referred to PMD for follow-up: Yes Additional Instructions: Please call your Family Physician as soon as possible to schedule a follow-up appointment. DISCUSS RECURRENT HEADACHE AND PROPHYLACTIC MEDICATIONS NEUROLOGY CONSULT SCHEDULED END OF DECEMBER REST TODAY AVOID NOISE AND LIGHTS SCHEDULE STRESSFUL EVENTS FOR NEXT WEEK RETURN IF FEVER OVER 101.0 IF NEW SYMPTOMS IF VOMITING OR PERSONALITY CHANGES Allergies/Adverse Reactions: Allergies aspirin Adverse Reaction (Verified 01/04/17 16:21) codeine Adverse Reaction (Verified 01/04/17 16:21) Penicillins Adverse Reaction (Verified 01/04/17 16:21) sumatriptan [From Imitrex] Adverse Reaction (Verified 01/04/17 16:21) "messes with my heart" sumatriptan succinate [From Imitrex] Adverse Reaction (Verified 01/04/17 16:21) "messes with my heart" tramadol [From Ultram] Adverse Reaction (Verified 01/04/17 16:21) Hives patient states she is not actually allergic to this Home Medications: Ambulatory Orders Budesonide/Formoterol Fumarate [Symbicort 80-4.5 Mcg Inhaler] 2 puff IH BID Fluticasone Propionate [Flonase] 1 spray NS DAILY 11/01/15 Ipratropium/Albuterol Sulfate [Combivent Respimat Inhal [place]] 1 spray IH BID Multivitamin [Daily Multiple Vitamin] 1 each PO DAILY 11/01/15 Prazosin HCl 3 mg PO BEDTIME 11/01/15 Venlafaxine HCl [Effexor] 75 mg PO DAILY 04/08/16 Benztropine Mesylate [Cogentin] 0.5 mg PO BID 08/04/16 Haloperidol 1 tab PO BID 08/04/16 Lamotrigine [Lamictal] 2 tab PO BID 08/04/16 Loratadine 10 mg PO DAILY 08/04/16 Omeprazole [Prilosec] 20 mg PO ONCE 08/04/16 Tizanidine HCl 1 tab PO BID 08/04/16 Topiramate [Topamax] 1 tab PO BID 08/04/16 Hydrocodone/Acetaminophen [[place] 5-325 Tablet] 1 each PO Q6HR PRN #7 tablet 04/02 Diphenhydramine HCl [Benadryl] 25 mg PO QID #30 capsule 11/24/16
[2017-01-04] MEDS ORDERED: BENADRYL 50 MG in SODIUM CHLORIDE 100 ML IV STA (17:57)
[2017-01-04] MEDS ORDERED: SOLU-MEDROL 125 MG IVP STA (17:59)
[2017-01-04] MEDS ORDERED: SODIUM CHLORIDE 1,000 ML IV STA (17:59)
[2017-01-04] MEDS ORDERED: BENADRYL ONE (18:15)
[2017-01-04] MEDS ORDERED: BENADRYL IVP STA (18:30)
[2017-01-04] MEDS ORDERED: STADOL IVP STA (19:01)
== END 2017-01-04 20:08 | disposition home or self-care (01) ==
LOC: ED 16:14
DX: G43.909 Migraine, unspecified, not intractable, without status migrainosus (principal); Z79.899 Other long term (current) drug therapy
CPT/HCPCS: 96361; 96374; 96375; 99283

== ENCOUNTER 2017-01-11 11:00 | Emergency (ER) | payer OTHER ==
[2017-01-11 11:04] VITALS: BP 135/84; TEMP 98.6; BMI 54.0
== END 2017-01-11 12:15 | disposition left against medical advice (07) ==
LOC: ED 11:00
DX: R51 Headache (principal)

== ENCOUNTER 2017-01-13 10:41 | Emergency (ER) ==
[2017-01-13 10:42] VITALS: BMI 54.0
[2017-01-13 10:49] VITALS: BP 125/87; TEMP 98.6
--- NOTE | 2017-01-13 11:18 | ED.PDOC ---
General ED Provider: Dr. OLGA BUENO JR Chief Complaint: Knee Pain/Injury Stated Complaint: patient states she "threw her right knee out" while walking yesterday. patient states she is having trouble walking on it[End]98.6 106 16 98% 125/87 05/26 tried toradol,tylenol, ibuprofen and excedrin without benefit describeshyperextension circulation intactdifficult exam due to weight ligaments not grossly weak no focal meniscal signs on exam Time Seen by Physician: 11:13 Mode of Arrival: Walk-In Information Source: Patient Exam Limitations: No limitations Primary Care Provider: STEPHNAIE FLORES Nursing and Triage Documentation Reviewed and Agree: No Review of Systems - Review Of Systems Constitutional: Reports: No symptoms Eyes: Reports: No symptoms Ears, Nose, Mouth, Throat: Reports: No symptoms Respiratory: Reports: No symptoms Cardiac: Reports: No symptoms GI: Reports: No symptoms : Reports: No symptoms Musculoskeletal: Reports: Joint pain (LEFT KNEE HISTORY OF RIGHT KNEE INJURY- PATIENT IS AWARE OF NEED TO LOSE WEIGHT) Skin: Reports: No symptoms Neurological: Reports: No symptoms Endocrine: Reports: No symptoms Hematologic/Lymphatic: Reports: No symptoms All Other Systems: Other Past Medical History - Past Medical History Endocrine: Reports: None Cardiovascular: Reports: Hypertension Respiratory: Reports: COPD, Asthma Hematological: Reports: None Gastrointestinal: Reports: GERD, Liver (HEPATITIS C), Other (chronic abd pain) Genitourinary: Reports: None Neuro/Psych: Reports: Migraine, Anxiety, Depression, Bipolar Disorder Musculoskeletal: Reports: Arthritis, Back Pain, Joint Pain (knee) Cancer: Reports: Other (uterine cancer) Last Menstrual Period: n/a Other Pertinent Past Medical History: CHRONIC BACK-pain;OSTEOSPONDILITS;BACK AND KNEE PROBLEMS - Surgical History General Surgical History: Reports: Hysterectomy, Tubal ligation, Cholecystectomy , Tonsillectomy, Orthopedic (ARM AND HAND SURGERY) - Family History Family History: Reports: Unknown - Social History Smoking Status: Former smoker Hx Substance Use: No Alcohol Screening: None Physical Exam - Physical Exam Appearance: Ill-appearing, Obese Ill-appearing: Mild Pain Distress: Moderate Eyes: LEONORA, EOMI, Conjunctiva clear ENT: Ears normal, Nose normal, Oropharynx normal Neck: Supple Respiratory: Airway patent, Breath sounds clear, Breath sounds equal, Respirations nonlabored Cardiovascular: RRR, Pulses normal, No rub, No murmur GI/: Soft, Nontender, No masses, Bowel sounds normal, No Organomegaly Musculoskeletal: Normal strength, ROM intact, No calf tenderness, Edema (RIGHT KNEE EDEMA) Skin: Warm, Dry, Normal color Neurological: Sensation intact, Motor intact, Reflexes intact, Cranial nerves intact, Alert, Oriented Psychiatric: Affect appropriate, Mood appropriate Interpretation - Radiology Interpretation Radiology Interpretation By: Radiologist Radiology Results: Negative Exam Interpreted: Other (knee) Critical Care Note - Critical Care Note Total Time (mins): 0 Course - Course Orders, Labs, Meds: Orders Category Date Time Status CRUTCHES [ED CRUTCHES] .ONCE EMERGENCY 01/13/17 11:20 Active ED DUSTIN WRAP .ONCE EMERGENCY 01/13/17 11:20 Active Ketorolac Tromethamine [Toradol] MEDS 01/13/17 11:19 Discontinued 60 mg IM ONCE STA Promethazine HCl [Phenergan 25 mg/ml Vial] MEDS 01/13/17 11:20 Discontinued 25 mg IM ONCE STA KNEE, RIGHT 4 VIEWS Stat RADS 01/13/17 11:20 Completed Medications Discontinued Medications Generic Name Dose Route Start Last Admin Trade Name Freq PRN Reason Stop Dose Admin Ketorolac Tromethamine 60 mg 01/13/17 11:19 01/13/17 11:46 Toradol IM 01/13/17 11:20 60 mg ONCE STA Administration Promethazine HCl 25 mg 01/13/17 11:20 01/13/17 11:49 Phenergan 25 Mg/Ml Vial IM 01/13/17 11:21 25 mg ONCE STA Administration Vital Signs: Temp Pulse Resp BP Pulse Ox 01/13/17 10:45 98.6 F 106 H 16 125/87 98 Departure - Departure Time of Disposition: 12:11 Disposition: HOME SELF-CARE Discharge Problem: Injury of knee Instructions: Knee Pain (ED) Condition: Good Pt referred to PMD for follow-up: Yes Additional Instructions: FOLLOW UP PMD DISCUSS KNEE PAIN CONSIDER ORTHOPEDIC EVALUATION MAY USE INDOCIN FOR PAIN LIMIT WEIGHT FOR TWO TO THREE DAYS ON LEFT LEG ICE (NO HEAT) FOR THREE DAYS DUSTIN FOR COMFORT Prescriptions: Indomethacin [Indocin] 25 mg PO TIDWM PRN #30 capsule PRN Reason: PAIN Allergies/Adverse Reactions: Allergies aspirin Adverse Reaction (Verified 01/13/17 10:49) codeine Adverse Reaction (Verified 01/13/17 10:49) Penicillins Adverse Reaction (Verified 01/13/17 10:49) sumatriptan [From Imitrex] Adverse Reaction (Verified 01/13/17 10:49) "messes with my heart" sumatriptan succinate [From Imitrex] Adverse Reaction (Verified 01/13/17 10:49) "messes with my heart" tramadol [From Ultram] Adverse Reaction (Verified 01/13/17 10:49) Hives patient states she is not actually allergic to this Home Medications: Ambulatory Orders Budesonide/Formoterol Fumarate [Symbicort 80-4.5 Mcg Inhaler] 2 puff IH BID Fluticasone Propionate [Flonase] 1 spray NS DAILY 11/01/15 Ipratropium/Albuterol Sulfate [Combivent Respimat Inhal [place]] 1 spray IH BID Multivitamin [Daily Multiple Vitamin] 1 each PO DAILY 11/01/15 Prazosin HCl 3 mg PO BEDTIME 11/01/15 Venlafaxine HCl [Effexor] 75 mg PO DAILY 04/08/16 Benztropine Mesylate [Cogentin] 0.5 mg PO BID 08/04/16 Haloperidol 1 tab PO BID 08/04/16 Lamotrigine [Lamictal] 2 tab PO BID 08/04/16 Loratadine 10 mg PO DAILY 08/04/16 Omeprazole [Prilosec] 20 mg PO ONCE 08/04/16 Tizanidine HCl 1 tab PO BID 08/04/16 Topiramate [Topamax] 1 tab PO BID 08/04/16 Hydrocodone/Acetaminophen [[place] 5-325 Tablet] 1 each PO Q6HR PRN #7 tablet 04/02 Diphenhydramine HCl [Benadryl] 25 mg PO QID #30 capsule 11/24/16 Indomethacin [Indocin] 25 mg PO TIDWM PRN #30 capsule 01/13/17
[2017-01-13] MEDS ORDERED: TORADOL IM STA (11:19)
[2017-01-13] MEDS ORDERED: PHENERGAN 25 MG/ML VIAL IM STA (11:20)
--- NOTE | 2017-01-13 12:03 | DI ---
EXAM: Radiographs, right knee HISTORY: Initial presentation for right knee injury. COMPARISON: None available. TECHNIQUE: Four views. FINDINGS: Bone mineralization is decreased. There is no fracture or dislocation. Mild lateral com partment osteoarthritis noted. No focal soft tissue abnormality is seen. IMPRESSION: No fracture or dislocation.
== END 2017-01-13 12:30 | disposition home or self-care (01) ==
LOC: ED 10:41
DX: M25.561 Pain in right knee (principal)
CPT/HCPCS: 96372; 99283

== ENCOUNTER 2017-01-25 13:51 | Emergency (ER) | payer OTHER ==
[2017-01-25 13:57] VITALS: BP 114/89; TEMP 99.2; BMI 58.6
--- NOTE | 2017-01-25 14:10 | ED.PDOC ---
General ED Provider: Dr. OLGA BUENO JR Chief Complaint: Back Pain Stated Complaint: lifted outside table 2 days ago-has had lower back pain since- -pain is constant throb--has appt with pain management on february 03--has chronic back lee[ End ]2 days ago 99.2 108 20 97% 114/89 06/26 right lower lumbar pain Time Seen by Physician: 14:11 Mode of Arrival: Walk-In Information Source: Patient Exam Limitations: No limitations Primary Care Provider: STEPHANIE FOLRES Nursing and Triage Documentation Reviewed and Agree: No Review of Systems - Review Of Systems Constitutional: Reports: No symptoms Eyes: Reports: No symptoms Ears, Nose, Mouth, Throat: Reports: No symptoms Respiratory: Reports: No symptoms Cardiac: Reports: No symptoms GI: Reports: No symptoms : Reports: No symptoms Musculoskeletal: Reports: Muscle stiffness Skin: Reports: No symptoms Neurological: Reports: No symptoms Endocrine: Reports: No symptoms Hematologic/Lymphatic: Reports: No symptoms All Other Systems: Other Past Medical History - Past Medical History Endocrine: Reports: None Cardiovascular: Reports: Hypertension Respiratory: Reports: COPD, Asthma Hematological: Reports: None Gastrointestinal: Reports: GERD, Liver (HEPATITIS C), Other (chronic abd pain) Genitourinary: Reports: None Neuro/Psych: Reports: Migraine, Anxiety, Depression, Bipolar Disorder Musculoskeletal: Reports: Arthritis, Back Pain, Joint Pain (knee) Cancer: Reports: Other (uterine cancer) Last Menstrual Period: hysterectomy Other Pertinent Past Medical History: CHRONIC BACK-pain;OSTEOSPONDILITS;BACK AND KNEE PROBLEMS - Surgical History General Surgical History: Reports: Hysterectomy, Tubal ligation, Cholecystectomy , Tonsillectomy, Orthopedic (ARM AND HAND SURGERY) - Family History Family History: Reports: Unknown - Social History Smoking Status: Current every day smoker, Light tobacco smoker Hx Substance Use: No Alcohol Screening: None Physical Exam - Physical Exam Appearance: Well-appearing, Obese Ill-appearing: Moderate Pain Distress: Moderate Neck: Supple Respiratory: Airway patent Musculoskeletal: Normal strength, ROM intact, No edema, No calf tenderness ( right positive SLR stiff leg no definite sciatica but accurate response for same ) Skin: Warm, Dry, Normal color Neurological: Sensation intact, Motor intact, Reflexes intact, Cranial nerves intact, Alert, Oriented Psychiatric: Affect appropriate, Mood appropriate Re-Evaluation - Re-Evaluation Time of Re-Evaluation: 14:22 Status: Improved (patient refuses toradol- it doesn't work can I get something beside toradol?informe dpatient ER treatment is inappropirate for chronic condition agree exacerbated but still same condition will see PM in february 03) Critical Care Note - Critical Care Note Total Time (mins): 0 Course - Course Orders, Labs, Meds: Orders Category Date Time Status Butorphanol Tartrate [Stadol] MEDS 01/25/17 14:19 Stat 2 mg IM ONCE STA Ketorolac Tromethamine [Toradol] MEDS 01/25/17 14:11 Stop Req 60 mg IM ONCE STA Promethazine HCl [Phenergan 25 mg/ml Vial] MEDS 01/25/17 14:12 Stat 25 mg IM ONCE STA Medications Discontinued Medications Generic Name Dose Route Start Last Admin Trade Name Freq PRN Reason Stop Dose Admin Butorphanol Tartrate 2 mg 01/25/17 14:19 Stadol IM 01/25/17 14:20 ONCE STA Promethazine HCl 25 mg 01/25/17 14:12 Phenergan 25 Mg/Ml Vial IM 01/25/17 14:13 ONCE STA Vital Signs: Temp Pulse Resp BP Pulse Ox 01/25/17 13:51 99.2 F 108 H 20 114/89 97 Departure - Departure Time of Disposition: 14:23 Disposition: HOME SELF-CARE Discharge Problem: Low back strain Qualifiers: Encounter type: initial encounter Qualifier Code: (S39.012A) Strain of muscle, fascia and tendon of lower back, initial encounter Instructions: Chronic Back Pain (ED), Lower Back Exercises (ED), Low Back Strain (ED) Condition: Good Pt referred to PMD for follow-up: Yes Additional Instructions: follow up PMD follow up pain management ER is not correct place to treat back pain discuss treatment with your physician and with pain management Allergies/Adverse Reactions: Allergies aspirin Adverse Reaction (Verified 01/25/17 13:59) codeine Adverse Reaction (Verified 01/25/17 13:59) Penicillins Adverse Reaction (Verified 01/25/17 13:59) sumatriptan [From Imitrex] Adverse Reaction (Verified 01/25/17 13:59) "messes with my heart" sumatriptan succinate [From Imitrex] Adverse Reaction (Verified 01/25/17 13:59) "messes with my heart" tramadol [From [facility]] Adverse Reaction (Verified 01/25/17 13:59) Hives patient states she is not actually allergic to this Home Medications: Ambulatory Orders Budesonide/Formoterol Fumarate [Symbicort 80-4.5 Mcg Inhaler] 2 puff IH BID Fluticasone Propionate [Flonase] 1 spray NS DAILY 11/01/15 Ipratropium/Albuterol Sulfate [Combivent Respimat Inhal [place]] 1 spray IH BID Multivitamin [Daily Multiple Vitamin] 1 each PO DAILY 11/01/15 Prazosin HCl 3 mg PO BEDTIME 11/01/15 Venlafaxine HCl [Effexor] 75 mg PO DAILY 04/08/16 Benztropine Mesylate [Cogentin] 0.5 mg PO BID 08/04/16 Haloperidol 1 tab PO BID 08/04/16 Lamotrigine [Lamictal] 2 tab PO BID 08/04/16 Loratadine 10 mg PO DAILY 08/04/16 Omeprazole [Prilosec] 20 mg PO ONCE 08/04/16 Tizanidine HCl 1 tab PO BID 08/04/16 Topiramate [Topamax] 1 tab PO BID 08/04/16 Hydrocodone/Acetaminophen [[place] 5-325 Tablet] 1 each PO Q6HR PRN #7 tablet 04/02 Diphenhydramine HCl [Benadryl] 25 mg PO QID #30 capsule 11/24/16 Indomethacin [Indocin] 25 mg PO TIDWM PRN #30 capsule 01/13/17
[2017-01-25] MEDS ORDERED: TORADOL IM STA (14:11)
[2017-01-25] MEDS ORDERED: PHENERGAN 25 MG/ML VIAL IM STA (14:12)
[2017-01-25] MEDS ORDERED: STADOL IM STA (14:19)
== END 2017-01-25 15:10 | disposition home or self-care (01) ==
LOC: ED 13:51
DX: S39.012A Strain of muscle, fascia and tendon of lower back, initial encounter (principal); F17.210 Nicotine dependence, cigarettes, uncomplicated; X50.0XXA Overexertion from strenuous movement or load, initial encounter
CPT/HCPCS: 96372; 99282

== ENCOUNTER 2017-02-15 14:16 | Emergency (ER) ==
[2017-02-15 14:20] VITALS: BP 131/98; TEMP 97.8; BMI 54.9
--- NOTE | 2017-02-15 14:34 | ED.PDOC ---
General ED Provider: Dr. OLGA BUENO JR Chief Complaint: Headache Stated Complaint: pt complains of migraine. pt is pain management pt [End]1 day 97.8 130 18 96% 131/98 07/26. / normal CT head Time Seen by Physician: 14:34 Mode of Arrival: Walk-In Information Source: Patient Exam Limitations: No limitations Primary Care Provider: STEPHANIE FLORES Nursing and Triage Documentation Reviewed and Agree: No Review of Systems - Review Of Systems Constitutional: Reports: No symptoms Eyes: Reports: No symptoms Ears, Nose, Mouth, Throat: Reports: No symptoms Respiratory: Reports: No symptoms Cardiac: Reports: No symptoms GI: Reports: No symptoms : Reports: No symptoms Musculoskeletal: Reports: No symptoms Skin: Reports: No symptoms Neurological: Reports: Headache Endocrine: Reports: No symptoms Hematologic/Lymphatic: Reports: No symptoms All Other Systems: Other Past Medical History - Past Medical History Endocrine: Reports: None Cardiovascular: Reports: Hypertension Respiratory: Reports: COPD, Asthma Hematological: Reports: None Gastrointestinal: Reports: GERD, Liver (HEPATITIS C), Other (chronic abd pain) Genitourinary: Reports: None Neuro/Psych: Reports: Migraine, Anxiety, Depression, Bipolar Disorder Musculoskeletal: Reports: Arthritis, Back Pain, Joint Pain (knee) Cancer: Reports: Other (uterine cancer) Last Menstrual Period: none Other Pertinent Past Medical History: tylox, topimax, norco, tylenol migraine meds at home - Surgical History General Surgical History: Reports: Hysterectomy, Tubal ligation, Cholecystectomy , Tonsillectomy, Orthopedic (ARM AND HAND SURGERY) - Family History Family History: Reports: Unknown - Social History Smoking Status: Current every day smoker, Light tobacco smoker Hx Substance Use: No Alcohol Screening: None Physical Exam - Physical Exam Appearance: Well-appearing, Obese Pain Distress: Moderate Eyes: LEONORA, EOMI, Conjunctiva clear ENT: Ears normal, Nose normal, Oropharynx normal Neck: Supple Respiratory: Airway patent, Breath sounds clear, Breath sounds equal, Respirations nonlabored Cardiovascular: RRR, Pulses normal, No rub, No murmur GI/: Soft, Nontender, No masses, Bowel sounds normal, No Organomegaly Musculoskeletal: Normal strength, ROM intact, No edema, No calf tenderness Skin: Warm, Dry, Normal color Neurological: Sensation intact, Motor intact, Reflexes intact, Cranial nerves intact, Alert, Oriented Psychiatric: Affect appropriate, Mood appropriate Critical Care Note - Critical Care Note Total Time (mins): 0 Course - Course Orders, Labs, Meds: Orders Category Date Time Status Butorphanol Tartrate [Stadol] MEDS 02/15/17 15:34 Discontinued 2 mg IM ONCE STA Promethazine HCl [Phenergan 25 mg/ml Vial] MEDS 02/15/17 15:34 Discontinued 25 mg IM ONCE STA Medications Discontinued Medications Generic Name Dose Route Start Last Admin Trade Name [place] PRN Reason Stop Dose Admin Butorphanol Tartrate 2 mg 02/15/17 15:34 02/15/17 15:50 Stadol IM 02/15/17 15:35 2 mg ONCE STA Administration Promethazine HCl 25 mg 02/15/17 15:34 02/15/17 15:50 Phenergan 25 Mg/Ml Vial IM 02/15/17 15:35 25 mg ONCE STA Administration Vital Signs: Temp Pulse Resp BP Pulse Ox 02/15/17 14:17 97.8 F 130 H 18 131/98 H 96 Departure - Departure Time of Disposition: 16:19 Disposition: HOME SELF-CARE Discharge Problem: Headache Instructions: Migraine Headache (ED) Condition: Good Pt referred to PMD for follow-up: Yes Additional Instructions: follow up pmd one week discus headaches consider CT head(last at [place] over one year ago ) home rest Allergies/Adverse Reactions: Allergies aspirin Adverse Reaction (Verified 02/15/17 14:21) codeine Adverse Reaction (Verified 02/15/17 14:21) Penicillins Adverse Reaction (Verified 02/15/17 14:21) sumatriptan [From Imitrex] Adverse Reaction (Verified 02/15/17 14:21) "messes with my heart" sumatriptan succinate [From Imitrex] Adverse Reaction (Verified 02/15/17 14:21) "messes with my heart" tramadol [From Ultram] Adverse Reaction (Verified 02/15/17 14:21) Hives patient states she is not actually allergic to this Home Medications: Ambulatory Orders Budesonide/Formoterol Fumarate [Symbicort 80-4.5 Mcg Inhaler] 2 puff IH BID Fluticasone Propionate [Flonase] 1 spray NS DAILY 11/01/15 Ipratropium/Albuterol Sulfate [Combivent Respimat Inhal [place]] 1 spray IH BID Multivitamin [Daily Multiple Vitamin] 1 each PO DAILY 11/01/15 Prazosin HCl 3 mg PO BEDTIME 11/01/15 Venlafaxine HCl [Effexor] 75 mg PO DAILY 04/08/16 Benztropine Mesylate [Cogentin] 0.5 mg PO BID 08/04/16 Haloperidol 1 tab PO BID 08/04/16 Lamotrigine [Lamictal] 2 tab PO BID 08/04/16 Loratadine 10 mg PO DAILY 08/04/16 Omeprazole [Prilosec] 20 mg PO ONCE 08/04/16 Tizanidine HCl 1 tab PO BID 08/04/16 Topiramate [Topamax] 1 tab PO BID 08/04/16 Diphenhydramine HCl [Benadryl] 25 mg PO QID #30 capsule 11/24/16 Indomethacin [Indocin] 25 mg PO TIDWM PRN #30 capsule 01/13/17 Hydrocodone Bit/Acetaminophen [[place] 10-325] 1 each PO Q6HR 02/15/17
[2017-02-15] MEDS ORDERED: STADOL IM STA (15:34)
[2017-02-15] MEDS ORDERED: PHENERGAN 25 MG/ML VIAL IM STA (15:34)
== END 2017-02-15 16:29 | disposition home or self-care (01) ==
LOC: ED 14:16
DX: G43.909 Migraine, unspecified, not intractable, without status migrainosus (principal); F17.210 Nicotine dependence, cigarettes, uncomplicated; Z79.899 Other long term (current) drug therapy
CPT/HCPCS: 96372; 99282

== ENCOUNTER 2017-02-19 19:33 | Outpatient (CLI) | END 2017-02-19 19:34 | disposition home or self-care (01) | LOC: AMBL 19:33 | PROVIDERS: ATTEND Internal Medicine Geriatric Medicine | DX: M54.5 Low back pain (principal) ==

== ENCOUNTER 2017-03-15 13:00 | Outpatient (CLI) ==
[2017-03-15 13:23] VITALS: BMI 52.2
== END 2017-03-15 13:01 | disposition home or self-care (01) ==
LOC: AMBL 13:00
PROVIDERS: ATTEND Internal Medicine
DX: M54.5 Low back pain (principal); R10.32 Left lower quadrant pain; Z87.442 Personal history of urinary calculi

== ENCOUNTER 2017-03-15 13:16 | Emergency (ER) | payer OTHER ==
[2017-03-15 13:23] VITALS: BP 133/90; TEMP 98.3; BMI 52.2
[2017-03-15 14:02] LABS: BASOPHILS % (AUTO) 0.4 % (0.0-3.0); EOSINOPHILS # (AUTO) 0.2 K/ul (0.0-0.7); EOSINOPHILS % (AUTO) 1.8 % (0.0-7.0); HEMATOCRIT 45.5 % (37.0-47.0); HEMOGLOBIN 15.5 g/dl (12.0-16.0); IMMATURE GRANULOCYTE % (AUTO) 0.4 % (0.0-5.0); LYMPHOCYTES # (AUTO) 2.3 K/uL (0.60-3.4); LYMPHOCYTES % (AUTO) 27.7 (10.0-50.0); MEAN CORPUSCULAR HEMOGLOBIN 31.8 pg (27.0-31.0); MEAN CORPUSCULAR HGB CONC 34.1 (31.8-35.4); MEAN CORPUSCULAR VOLUME 93.2 fl (81.0-99.0); MONOCYTES # (AUTO) 0.6 K/uL (0.4-2.0); MONOCYTES % (AUTO) 7.4 (0-10); NEUTROPHILS # (AUTO) 5.1 K/ul (2.0-6.9); NEUTROPHILS % (AUTO) 62.3; PLATELET COUNT 210 10^3/uL (140-440); RED BLOOD COUNT 4.88 10^6/ul (4.20-5.40); WHITE BLOOD COUNT 8.13 K/ul (4.6-10.2)
[2017-03-15] MEDS ORDERED: NORFLEX IM STA (14:04)
[2017-03-15] MEDS ORDERED: TORADOL IM STA (14:04)
[2017-03-15 14:21] LABS: ALBUMIN 3.7 g/dL (3.4-5.0); ALBUMIN/GLOBULIN RATIO 0.86; ANION GAP 12.6; BILIRUBIN,TOTAL 0.43 mg/dL (0.00-1.20); BUN/CREATININE RATIO 13.55; CALCIUM 9.4 mg/dL (8.2-10.2); CREATININE 1.18 mg/dL (0.60-1.30); POTASSIUM 3.6 mmol/L (3.5-5.10)
--- NOTE | 2017-03-15 14:37 | CT ---
EXAM: CT abdomen pelvis without contrast HISTORY: Abdominal pain COMPARISON: CT abdomen pelvis 08/08/2016 TECHNIQUE: Serial axial images of the abdomen pelvis were performed from the lung bases through the inferior pelvis without contrast. These were viewed in multiple planes. FINDINGS: The lung bases are clear. Evaluation is limited due to lack of contrast. The liver is unremarkable. The gallbladder has been resected. The adrenal glands are unremarkable. There is a nonobstructing 0.2 cm stone in the righ t kidney. There is no hydronephrosis or hydroureter. The spleen is unremarkable. The pancreas is unremarkable. Stomach is normal. Small bowel in the abdomen pelvis is normal. The appendix is normal. The colon demonstrates divert iculosis without diverticulitis. There are changes of prior hysterectomy. The urinary bladder is d istended. There is no free fluid, free air or pathologically enlarged lymph nodes. There is mild s cattered degenerative disease of the spine. IMPRESSION: 1. No acute intra-abdominal or pelvic process to account for patient's symptoms. 2. Nonobstructing right renal stone. 3. Prior cholecystectomy and hysterectomy. 4. Mild diverticulosis of the sigmoid colon.
--- NOTE | 2017-03-15 15:02 | ED.PDOC ---
General ED Provider: Dr. SOHAM GEIGER Chief Complaint: Back Pain Stated Complaint: back pain Time Seen by Physician: 13:17 Mode of Arrival: Stretcher Information Source: Patient, EMT Exam Limitations: No limitations Primary Care Provider: STEPHANIE FLORES Nursing and Triage Documentation Reviewed and Agree: Yes Musculoskeletal Complaint Exam - Back Pain Complaint/Exam Mechanism of Injury: Reports: No known trauma Onset/Duration: 1 day Timing: Constant Episodes Lasting: Hours Initial Severity: Moderate Current Severity: Moderate Location: Reports: Diffuse Character: Reports: Aching Aggravating: Reports: Movements, Lifting, Bending, Walking Alleviating: Reports: Rest, Position Associated Signs and Symptoms: Denies: Swelling, Redness, Bruising, Fever, Weakness, Numbness, Tingling, Abdominal pain, Flank pain, Bladder incontinence, Bowel incontinence, Weight loss, Pain with weight bearing Related History: Reports: Similar episode Review of Systems - Review Of Systems Constitutional: Reports: No symptoms Eyes: Reports: No symptoms Ears, Nose, Mouth, Throat: Reports: No symptoms Respiratory: Reports: No symptoms Cardiac: Reports: No symptoms GI: Reports: No symptoms : Reports: No symptoms Musculoskeletal: Reports: Back pain Skin: Reports: No symptoms Neurological: Reports: No symptoms Endocrine: Reports: No symptoms Hematologic/Lymphatic: Reports: No symptoms All Other Systems: Reviewed and Negative Past Medical History - Past Medical History Endocrine: Reports: None Cardiovascular: Reports: Hypertension Respiratory: Reports: COPD, Asthma Hematological: Reports: None Gastrointestinal: Reports: GERD, Liver (HEPATITIS C), Other (chronic abd pain) Genitourinary: Reports: None Neuro/Psych: Reports: Migraine, Anxiety, Depression, Bipolar Disorder Musculoskeletal: Reports: Arthritis, Back Pain, Joint Pain (knee) Cancer: Reports: Other (uterine cancer) Last Menstrual Period: hysterectomy Other Pertinent Past Medical History: tylox, topimax, norco, tylenol migraine meds at home - Surgical History General Surgical History: Reports: Hysterectomy, Tubal ligation, Cholecystectomy , Tonsillectomy, Orthopedic (ARM AND HAND SURGERY) - Family History Family History: Reports: Unknown - Social History Smoking Status: Current every day smoker, Light tobacco smoker Hx Substance Use: No Alcohol Screening: None Physical Exam - Physical Exam Appearance: Well-appearing, No pain distress, Well-nourished Eyes: LEONORA, EOMI, Conjunctiva clear ENT: Ears normal, Nose normal, Oropharynx normal Respiratory: Airway patent, Breath sounds clear, Breath sounds equal, Respirations nonlabored Cardiovascular: RRR, Pulses normal, No rub, No murmur GI/: Soft, Nontender, No masses, Bowel sounds normal, No Organomegaly Musculoskeletal: Normal strength, ROM intact, No edema, No calf tenderness Skin: Warm, Dry, Normal color Neurological: Sensation intact, Motor intact, Reflexes intact, Cranial nerves intact, Alert, Oriented Psychiatric: Affect appropriate, Mood appropriate Interpretation - Radiology Interpretation Radiology Interpretation By: Radiologist Radiology Results: No acute changes Critical Care Note - Critical Care Note Total Time (mins): 0 Course - Course Hematology/Chemistry: 03/15/17 13:50 03/15/17 13:50 Orders, Labs, Meds: Lab Review 03/15/17 13:50 WBC 8.13 RBC 4.88 Hgb 15.5 Hct 45.5 MCV 93.2 MCH 31.8 H MCHC 34.1 RDW Coeff of Miguel 13.7 Plt Count 210 Immature Gran % (Auto) 0.4 Neut % (Auto) 62.3 Lymph % (Auto) 27.7 [place] % (Auto) 7.4 Eos % (Auto) 1.8 Baso % (Auto) 0.4 Immature Gran # (Auto) 0.0 Neut # 5.1 Lymph # 2.3 [place] # 0.6 Eos # 0.2 Baso # 0.0 Sodium 140 Potassium 3.6 Chloride 108 H Carbon Dioxide 23 Anion Gap 12.6 BUN 16 Creatinine 1.18 Estimated GFR (MDRD) 51.00 BUN/Creatinine Ratio 13.55 Glucose 118 H Calcium 9.4 Total Bilirubin 0.43 AST 38 H ALT 45 Alkaline Phosphatase 92 Total Protein 8.0 Albumin 3.7 Globulin 4.3 Albumin/Globulin Ratio 0.86 Orders Category Date Time Status CBC W/ AUTO DIFF Stat LAB 03/15/17 13:50 Completed COMPREHENSIVE METABOLIC PANEL Stat LAB 03/15/17 13:50 Completed URINALYSIS C & S IF INDICATED Stat LAB 03/15/17 13:38 Uncollected Ketorolac Tromethamine [Toradol] MEDS 03/15/17 14:04 Discontinued 60 mg IM ONCE STA Orphenadrine Citrate [Norflex] MEDS 03/15/17 14:04 Discontinued 60 mg IM ONCE STA CT ABD/PEL WO RENAL STONE PROT Stat RADS 05/30/17 13:38 Completed Medications Discontinued Medications Generic Name Dose Route Start Last Admin Trade Name Olvin PRN Reason Stop Dose Admin Ketorolac Tromethamine 60 mg 03/15/17 14:04 03/15/17 14:28 Toradol IM 03/15/17 14:05 60 mg ONCE STA Administration Orphenadrine Citrate 60 mg 03/15/17 14:04 03/15/17 14:29 Norflex IM 03/15/17 14:05 60 mg ONCE STA Administration Vital Signs: Temp Pulse Resp BP Pulse Ox 03/15/17 13:17 98.3 F 112 H 16 133/90 98 Departure - Departure Time of Disposition: 15:01 Disposition: HOME SELF-CARE Discharge Problem: Low back pain Qualifiers: Chronicity: unspecified Back pain laterality: unspecified Instructions: Back Pain (ED) Condition: Good Pt referred to PMD for follow-up: No Additional Instructions: Please call your Family Physician as soon as possible to schedule a follow-up appointment. Allergies/Adverse Reactions: Allergies aspirin Adverse Reaction (Verified 03/15/17 13:26) codeine Adverse Reaction (Verified 03/15/17 13:26) Penicillins Adverse Reaction (Verified 03/15/17 13:26) sumatriptan [From Imitrex] Adverse Reaction (Verified 03/15/17 13:26) "messes with my heart" sumatriptan succinate [From Imitrex] Adverse Reaction (Verified 03/15/17 13:26) "messes with my heart" tramadol [From Ultram] Adverse Reaction (Verified 03/15/17 13:26) Hives patient states she is not actually allergic to this Home Medications: Ambulatory Orders Budesonide/Formoterol Fumarate [Symbicort 80-4.5 Mcg Inhaler] 2 puff IH BID Fluticasone Propionate [Flonase] 1 spray NS DAILY 11/01/15 Ipratropium/Albuterol Sulfate [Combivent Respimat Inhal [place]] 1 spray IH BID Multivitamin [Daily Multiple Vitamin] 1 each PO DAILY 11/01/15 Prazosin HCl 3 mg PO BEDTIME 11/01/15 Venlafaxine HCl [Effexor] 75 mg PO DAILY 04/08/16 Benztropine Mesylate [Cogentin] 0.5 mg PO BID 08/04/16 Haloperidol 1 tab PO BID 08/04/16 Lamotrigine [Lamictal] 2 tab PO BID 08/04/16 Loratadine 10 mg PO DAILY 08/04/16 Omeprazole [Prilosec] 20 mg PO ONCE 08/04/16 Tizanidine HCl 1 tab PO BID 08/04/16 Topiramate [Topamax] 1 tab PO BID 08/04/16 Diphenhydramine HCl [Benadryl] 25 mg PO QID #30 capsule 11/24/16 Indomethacin [Indocin] 25 mg PO TIDWM PRN #30 capsule 01/13/17 Hydrocodone Bit/Acetaminophen [[place] 10-325] 1 each PO Q6HR 02/15/17
== END 2017-03-15 15:16 | disposition home or self-care (01) ==
LOC: ED 13:16
DX: M54.5 Low back pain (principal); F17.210 Nicotine dependence, cigarettes, uncomplicated; Z79.891 Long term (current) use of opiate analgesic
CPT/HCPCS: 36415; 74176; 80053; 85025; 96372; 99283

== ENCOUNTER 2017-03-16 13:16 | Outpatient (CLI) ==
[2017-03-15 13:23] VITALS: BMI 52.2
== END 2017-03-16 13:17 | disposition home or self-care (01) ==
LOC: AMBL 13:16
PROVIDERS: ATTEND Emergency Medicine
DX: R39.198 Other difficulties with micturition (principal)

== ENCOUNTER 2017-08-29 07:29 | Observation (INO) ==
--- NOTE | 2017-08-29 08:18 | DI ---
EXAM: CHEST FRONTAL VIEW HISTORY: Pain. COMPARISON: 10/25/2016 FINDINGS: Heart size and mediastinum remain within normal limits. Lungs are free of infiltrate. No consolidation or pleural fluid. There is no pneumothorax or acute bony finding. IMPRESSION: Findings within normal limits.
--- NOTE | 2017-08-29 09:05 | ED.PDOC ---
General ED Provider: Dr. SOHAM GEIGER Chief Complaint: Hypertension Stated Complaint: hypertension Time Seen by Physician: 07:32 (seen with nurse at all times ) Mode of Arrival: Walk-In Information Source: Patient Exam Limitations: No limitations Primary Care Provider: ALISE MAYNARD-[facility] Nursing and Triage Documentation Reviewed and Agree: Yes Cardiovascular Complaint Exam - Hypertension Complaint/Exam Onset/Duration: today Symptoms Are: Still present (144/99) Timing: Constant Reported B/P Prior to Arrival: 150/99 Aggravating: Reports: None Alleviating: Reports: None Associated Signs and Symptoms: Denies: Chest pain, Vision changes, Anxiety, Recent stress, Headache, Numbness, Tingling, Weakness, Dizziness, Short of air, Swelling Related History: Reports: Similar episode Related Surgical History: Reports: None Cardiac Risk Factors: Reports: None Recent Change in Medications: No A/V [place]: No Papilledema Present: No JVD Present: No Carotid Bruit Present: No Femoral Pulses Bounding: No Differential Diagnoses: Hypertension Quality Indicator For Non-Traumatic Chest Pain/Syncope: EKG Performed Review of Systems - Review Of Systems Constitutional: Reports: No symptoms Eyes: Reports: No symptoms Ears, Nose, Mouth, Throat: Reports: No symptoms Respiratory: Reports: No symptoms Cardiac: Reports: Chest pain GI: Reports: No symptoms : Reports: No symptoms Musculoskeletal: Reports: No symptoms Skin: Reports: No symptoms Neurological: Reports: No symptoms Endocrine: Reports: No symptoms Hematologic/Lymphatic: Reports: No symptoms All Other Systems: Reviewed and Negative Past Medical History - Past Medical History Previously Healthy: Yes Endocrine: Reports: None Cardiovascular: Reports: Hypertension Respiratory: Reports: COPD, Asthma Hematological: Reports: None Gastrointestinal: Reports: GERD, Liver (HEPATITIS C), Other (chronic abd pain) Genitourinary: Reports: None Neuro/Psych: Reports: Migraine, Anxiety, Depression, Bipolar Disorder Musculoskeletal: Reports: Arthritis, Back Pain, Joint Pain (knee) Cancer: Reports: Other (uterine cancer) Last Menstrual Period: n/a Other Pertinent Past Medical History: tylox, topimax, norco, tylenol migraine meds at home - Surgical History General Surgical History: Reports: Hysterectomy, Tubal ligation, Cholecystectomy , Tonsillectomy, Orthopedic (ARM AND HAND SURGERY) - Family History Family History: Reports: Unknown - Social History Smoking Status: Current every day smoker, Light tobacco smoker Hx Substance Use: No Alcohol Screening: None Physical Exam - Physical Exam Appearance: Well-appearing, No pain distress, Well-nourished Eyes: LEONORA, EOMI, Conjunctiva clear ENT: Ears normal, Nose normal, Oropharynx normal Respiratory: Airway patent, Breath sounds clear, Breath sounds equal, Respirations nonlabored Cardiovascular: RRR, Pulses normal, No rub, No murmur GI/: Soft, Nontender, No masses, Bowel sounds normal, No Organomegaly Musculoskeletal: Normal strength, ROM intact, No edema, No calf tenderness Skin: Warm, Dry, Normal color Neurological: Sensation intact, Motor intact, Reflexes intact, Cranial nerves intact, Alert, Oriented Psychiatric: Affect appropriate, Mood appropriate Interpretation - Paint Preparer Rate: Normal Rhythm: Sinus Ectopy: None - EKG Interpretation Rate: Normal Rhythm: Sinus Ectopy: None [place]: NL ST Segment: Normal Physician Notification - Case Discussed Physician Notified: [email or web address] Time of Notification: 09:06 Admit To: Observation Critical Care Note - Critical Care Note Total Time (mins): 0 Course - Course Hematology/Chemistry: 08/29/17 08:00 08/29/17 08:00 Orders, Labs, Meds: Lab Review 08/29/17 08/29/17 08:00 08:00 WBC 6.22 RBC 5.09 Hgb 16.2 H Hct 48.4 H MCV 95.1 MCH 31.8 H MCHC 33.5 RDW Coeff of Miguel 13.9 Plt Count 160 Immature Gran % (Auto) 0.3 Neut % (Auto) 57.2 Lymph % (Auto) 30.1 [place] % (Auto) 6.8 Eos % (Auto) 4.8 Baso % (Auto) 0.8 Immature Gran # (Auto) 0.0 Neut # 3.6 Lymph # 1.9 [place] # 0.4 Eos # 0.3 Baso # 0.1 Sodium 142 Potassium 4.8 Chloride 107 Carbon Dioxide 28 Anion Gap 11.8 BUN 9 Creatinine 0.69 Estimated GFR (MDRD) 94.00 BUN/Creatinine Ratio 13.04 Glucose 109 Calcium 9.6 Total Bilirubin 0.36 AST 46 H ALT 59 Alkaline Phosphatase 110 H Total Creatine Kinase 68 Troponin I 0.0100 Total Protein 7.3 Albumin 3.4 Globulin 3.9 Albumin/Globulin Ratio 0.87 Orders Category Date Time Status EKG-(ED ONLY) Stat CARDIO 08/29/17 07:49 Completed CBC W/ AUTO DIFF Stat LAB 08/29/17 08:00 Completed COMPREHENSIVE METABOLIC PANEL Stat LAB 08/29/17 08:00 Completed CREATINE KINASE Stat LAB 08/29/17 08:00 Completed TROPONIN I Stat LAB 08/29/17 08:00 Completed CHEST, 1V AP ONLY Stat RADS 08/29/17 07:51 Completed Vital Signs: Temp Pulse Resp BP Pulse Ox 08/29/17 07:30 98.1 F 88 20 149/109 H 98 SARAH Risk Score SARAH Risk Score: Risk Score Odds of by 30D 0 0.1 (0.1-0.2) 1 0.3 (0.2-0.3) 2 0.4 (0.3-0.5) 3 0.7 (0.6-0.9) 4 1.2 (1.0-1.5) 5 2.2 (1.9-2.6) 6 3.0 (2.5-3.6) 7 4.8 (3.8-6.1) Departure - Departure Time of Disposition: 09:06 Disposition: PLACED OBSERVATION Discharge Problem: Chest pain Qualifiers: Chest pain type: unspecified Qualified Code(s): R07.9 - Chest pain, unspecified Instructions: Angina (ED) Condition: Good Pt referred to PMD for follow-up: Yes Additional Instructions: Please call your Family Physician as soon as possible to schedule a follow-up appointment. Allergies/Adverse Reactions: Allergies aspirin Adverse Reaction (Verified 08/29/17 07:35) codeine Adverse Reaction (Verified 08/29/17 07:35) Penicillins Adverse Reaction (Verified 08/29/17 07:35) sumatriptan [From Imitrex] Adverse Reaction (Verified 08/29/17 07:35) "messes with my heart" sumatriptan succinate [From Imitrex] Adverse Reaction (Verified 08/29/17 07:35) "messes with my heart" tramadol [From Ultram] Adverse Reaction (Verified 08/29/17 07:35) Hives patient states she is not actually allergic to this Home Medications: Ambulatory Orders Ipratropium/Albuterol Sulfate [Combivent Respimat Inhal [place]] 1 spray IH BID 01 /16/16 Topiramate [Topamax] 1 tab PO BID 08/04/16
[2017-08-29 10:12] VITALS: BMI 45.7
[2017-08-29] MEDS: SODIUM CHLORIDE 1,000 ML IV SCH ×2 (10:52→23:09)
[2017-08-29] MEDS: ZOFRAN 4 MG/2 ML IVP PRN ×2 (11:52→19:49)
[2017-08-29] MEDS: MORPHINE 2 MG/ML SYRINGE IVP PRN ×2 (11:52→19:48)
[2017-08-29] MEDS: NICODERM 21 MG TD SCH (13:01)
[2017-08-29] MEDS ORDERED: NON-FORMULARY MEDICATION (Gabapentin [Gabapentin] 600 MG) PO SCH (15:00)
[2017-08-29] MEDS ORDERED: TOPAMAX PO STA (15:59)
[2017-08-29] MEDS: IPRATROPIUM IH SCH (20:10)
[2017-08-29] MEDS: ALBUTEROL SULFATE IH SCH (20:10)
[2017-08-29] MEDS: LOPRESSOR PO SCH (20:10)
[2017-08-29] MEDS: TOPAMAX PO SCH (20:10)
[2017-08-29] MEDS: [UNRECOGNIZED DRUG - OTHER] IH SCH (20:10)
[2017-08-29] MEDS: NYSTOP POWDER TP SCH (20:11)
[2017-08-29] MEDS: NEURONTIN PO SCH (20:11)
[2017-08-29] MEDS ORDERED: TOPIRAMATE PO SCH (21:00)
[2017-08-29] MEDS ORDERED: NON-FORMULARY MEDICATION (Metoprolol Tartrate [Metoprolol Tartrate] 100 MG) PO SCH (21:00)
[2017-08-30] MEDS ORDERED: MORPHINE 2 MG/ML SYRINGE IVP STA (00:16)
[2017-08-30] MEDS ORDERED: GI COCKTAIL PO STA (01:51)
[2017-08-30] MEDS: ZOFRAN 4 MG/2 ML IVP PRN ×2 (05:42→12:23)
[2017-08-30] MEDS: MORPHINE 2 MG/ML SYRINGE IVP PRN ×2 (05:42→12:23)
[2017-08-30] MEDS ORDERED: PROTONIX IV IVP SCH (06:30)
[2017-08-30] MEDS ORDERED: DOBUTAMINE 250 ML IV ONE (07:59)
[2017-08-30] MEDS ORDERED: ATROPINE SULFATE PFS ONE (07:59)
[2017-08-30] MEDS: NYSTOP POWDER TP SCH (09:38)
[2017-08-30] MEDS: TOPAMAX PO SCH (09:38)
[2017-08-30] MEDS: NICODERM 21 MG TD SCH (09:38)
[2017-08-30] MEDS: LOPRESSOR PO SCH (09:41)
[2017-08-30] MEDS: IPRATROPIUM IH SCH (09:41)
[2017-08-30] MEDS: ALBUTEROL SULFATE IH SCH (09:41)
[2017-08-30] MEDS: [UNRECOGNIZED DRUG - OTHER] IH SCH (09:41)
[2017-08-30] MEDS: NEURONTIN PO SCH (09:41)
[2017-08-30 10:55] VITALS: BP 105/64; TEMP 98.7
--- NOTE | 2017-08-30 11:10 | DOBSTECHO ---
Ordering Physician: ALISE MAYNARD MD Date of Test: 08/30/17 Reason for Examination: CHEST PAIN, HTN Current Medications: METOPROLOL, COMBIVENT, TOPAMAX, GABAPENTIN Height: 65" Weight: 275 LBS Target Heart Rate: 152 ST Segment Stage Time HR BPM BP mmhg Rhythm +/- Up Down Comments/Symptoms Control Sitting 54 125/82 SR X NONE Dobutamine 250mg/D5W 5cmg/KG/mn 10cmg/KG/mn 3" 64 130/85 SR X NONE 15cmg/KG/mn 2" 77 132/80 SR X NONE 20cmg/KG/mn 2" 82 125/78 SR X NONE 25cmg/KG/mn 2" 93 120/70 SR X NONE 30cmg/KG/mn 2" 101 125/78 SR X NONE 35cmg/KG/mn 2" 113 130/75 SR X NONE 40cmg/KG/mn 2:13 144 125/82 SR X NONE Time: 3" HR B/P Time: 6" HR B/P Time: 21" HR B/P Recovery 118 130/78 Recovery 93 120/70 Recovery 76 Total Time:15:13 Maximum Heart Rate Reached: 144 Interpretation: OXYGEN SATURATION 93% AT REST 1. NO EVIDENCE OF ISCHEMIA BY ST-T WAVE 2. NO CHEST PAIN OR CHEST DISCOMFORT 3. NORMAL LEFT VENTRICULAR CONTRACTILITY RESTING AND WITH DOBUTAMINE INFUSION MTDD
--- NOTE | 2017-08-30 11:23 | ECHOSTRESS ---
Date of Exam: 08/30/17 Ordering Physician: ALISE MAYNARD MD Reason for Echo: CHEST PAIN, HTN, DOBUTAMINE-NO ISCHEMIA M-Mode Normal Adult Results LV Dimensions Normal Adult Results AoV Opening excursions >1.6 LVEDD-base- 3.5-5.8 Ao root dimensions 2.0-3.7 LVESD-base- 3.1-4.6 L. Atrium dimensions 1.9-3.8 Post. Wall thickness 0.8-1.1 IV septum (thickness) 0.7-1.2 Post. Wall excursion 0.72-1.3 Septal motion Systolic motion R. Ventricular cavity 1.5-2.0 LVEF 60% Paradoxical septal wall motion 2-D: NORMAL LEFT VENTRICULAR CONTRACTILITY RESTING AND WITH DOBUTAMINE INFUSION M-MODE: MV: AV: TV: PV: CHAMBER SIZE: WALL MOTION: NORMAL LEFT VENTRICULAR CONTRACTILITY RESTING AND WITH DOBUTAMINE INFUSION PERICARDIUM: INTERPRETATION: 1. NORMAL LEFT VENTRICULAR CONTRACTILITY RESTING AND WITH DOBUTAMINE INFUSION MTDD
--- NOTE | 2017-08-30 12:05 | ECHO2D ---
Date of Exam: 08/30/17 Ordering Physician: ALISE MAYNARD MD Reason for Echo: CHEST PAIN, HYPERTENSION M-Mode Normal Adult Results LV Dimensions Normal Adult Results AoV Opening excursions >1.6 >1.6 LVEDD-base- 3.5-5.8 4.5 Ao root dimensions 2.0-3.7 3.3 LVESD-base- 3.1-4.6 L. Atrium dimensions 1.9-3.8 4.0 Post. Wall thickness 0.8-1.1 1.2 IV septum (thickness) 0.7-1.2 1.2 Post. Wall excursion 0.72-1.3 NORMAL Septal motion NORMAL Systolic motion R. Ventricular cavity 1.5-2.0 NORMAL LVEF 60% 66% Paradoxical septal wall motion NORMAL 2-D : 2-D M Mode Echocardiogram was performed using apical four chamber and left parasternal long and short axis views. Mitral, tricuspid and aortic valves appear to be normal. Contractility of the left ventricle seems to be normal, so is the cavity size. Left atrial cavity size and aortic root appear to be normal. There is no pericardial effusion. There is no thrombus noted in the left ventricular or left aortic cavity. No mitral valve prolapse noted. M-MODE: MV: NORMAL AV: NORMAL TV: NORMAL PV: CHAMBER SIZE: NORMAL WALL MOTION: NORMAL PERICARDIUM: NORMAL INTERPRETATION: 1. BORDERLINE LEFT VENTRICULAR HYPERTROPHY WITH BORDERLINE LEFT ATRIAL CAVITY ENLARGEMENT 2. NORMAL LEFT VENTRICULAR CONTRACTILITY 3. NORMAL VALVES MTDD
[2017-08-30] MEDS ORDERED: DECADRON 4 MG/ML SDV IM STA (13:05)
[2017-08-30] MEDS ORDERED: FLUZONE QUAD 2017-2018 SYRINGE IM ONE (13:55)
[2017-08-30] MEDS ORDERED: PNEUMOVAX 23 SUBCUT ONE (13:55)
[2017-08-30] MEDS: SODIUM CHLORIDE 1,000 ML IV SCH (14:10)
--- NOTE | 2017-08-31 13:16 | CONS ---
DATE OF CONSULTATION: 08/29/17 HISTORY OF PRESENT ILLNESS: 42 year old white female seen on consultation for chest pain which is atypical center of the chest with steady ache for three to four days. The patient also has headache, migraine type typical. The pain is also going to the jaw and the left arm. REVIEW OF SYSTEMS: CONSTITUTIONAL: No night sweats. No fatigue, malaise, lethargy. No fever or chills. HEENT: Eyes: No visual changes. No eye pain. No eye discharge. ENT: No sinus drainage. No epistaxis. No sinus pain. No sore throat. No odynophagia. No ear pain. No congestion. RESPIRATORY: No cough, no congestion. No hemoptysis. No shortness of breath. CARDIOVASCULAR: No angina symptoms. No CHF symptoms. No atypical chest pain for CAD. No palpitations. No orthopnea. GASTROINTESTINAL: No abdominal pain. No nausea or vomiting. No diarrhea or constipation. No hematemesis. No hematochezia. GENITOURINARY: No urgency. No frequency. No dysuria. No hematuria. No obstructive symptoms. No discharge. No pain. No significant abnormal bleeding. MUSCULOSKELETAL: No musculoskeletal pain. No joint swelling. NEUROLOGICAL: No headache. No neck pain. No syncope. No seizures. No dizziness. PSYCHIATRIC: Not anxious. No depression. No suicidal thoughts. No homicidal thoughts. SKIN: No rash. No lesions. No wounds. ENDOCRINE: No unexplained weight loss. No weight gain. HEMATOLOGIC/LYMPHATIC: No anemia. No purpura. No petechiae. No prolonged or excessive bleeding. No palpable lymph nodes. MEDICATIONS: Combivent one spray IH twice a day Topamax one tablet PO twice a day Gabapentin 600mg PO three times a day Metoprolol 100mg PO twice a day ALLERGIES: Imitrex Penicillin Codeine Aspirin PAST MEDICAL HISTORY/SURGICAL HISTORY: COPD Asthma Obesity, morbid Depression Anxiety Bipolar Lower back pain IBS Hysterectomy Tubal ligation Cholecystectomy Tonsillectomy No complication during the surgery. SOCIAL/PERSONAL/FAMILY HISTORY: The patient is smoker and lives with the aunt. No alcohol abuse. Positive for marijuana. PHYSICAL EXAMINATION: GENERAL: The patient is oriented to time, place and person. HEENT: Head normocephalic, atraumatic. Eyes: Extraocular muscles are intact. Pupils are equal, round and reactive to light and accommodation. Ears: No lesions. Nose appeared normal. Throat: No exudate or erythema. NECK: Supple. No JVP, no carotid bruit. No lymphadenopathy or thyromegaly. PMI not palpable. LUNGS: Clear to auscultation. Percussion note normal. Chest symmetrical. HEART: S1, S2, no S3. No murmurs. No cyanosis or clubbing. No ascites. Pulses: Dorsalis pedis and posterior tibial pulses +2 both sides. ABDOMEN: Soft. Nontender. Bowel sounds active. No CVA tenderness. No mass felt. EXTREMITIES: No edema. Full range of motion of all extremities, equal. NEUROLOGIC: No focal deficit. Cranial nerves II through XII are grossly intact. No headache, no double vision or headache. SKIN: Not dry. Intact. Turgor - normal. LYMPHATIC: No palpable lymph nodes/no lymphedema. MUSCULOSKELETAL: Normal joints with no swelling. Muscle tone is normal. LABS: EKG sinus rhythm, no acute changes. Telemetry strips sinus rhythm with no acute changes. Cardiac markers are negative. ASSESSMENT: 1. Chest pain, seems to be noncardiac 2. Morbid obesity 3. Asthma RECOMMENDATIONS: 1. 2DM mode echo in the morning and Dobutamine stress echo in the morning 2. Monitor telemetry and EKGS and cardiac markers. CONDITION: Stable Thanks for referral will follow. For further detail see the written consult note. DEVAN
--- NOTE | 2017-08-31 14:40 | CONS ---
DATE OF SERVICE: 08/30/17 CONSULT FOLLOWUP SUBJECTIVE: 42 year old white female hospitalized with chest pain center of the chest going to the jaw, left arm steady ache for three days, non exertional and not associated with shortness of breath or sweating. The patient also has severe migraine headache and not responding to Morphine. REVIEW OF SYSTEMS: CONSTITUTIONAL: No night sweats. No fatigue, malaise, lethargy. No fever or chills. HEENT: Eyes: No visual changes. No eye pain. No eye discharge. ENT: No runny nose. No epistaxis. No sinus pain. No sore throat. No odynophagia. No ear pain. No congestion. RESPIRATORY: No cough, no congestion. No hemoptysis. CARDIOVASCULAR: No angina symptoms. No CHF symptoms. No atypical chest pain for CAD. No palpitations. No shortness of breath. Still has some chest pain, steady ache. No radiation to any other part. Denies of any symptoms of CHF like PND or Orthopnea. GASTROINTESTINAL: No abdominal pain. No nausea or vomiting. No diarrhea or constipation. No hematemesis. No hematochezia. GENITOURINARY: No urgency. No frequency. No dysuria. No hematuria. No obstructive symptoms. No discharge. No pain. No significant abnormal bleeding. MUSCULOSKELETAL: No musculoskeletal pain. No joint swelling. No arthritis. NEUROLOGICAL: Migraine headache. No neck pain. No syncope. No seizures. No dizziness. PSYCHIATRIC: Not anxious. No depression. No suicidal thoughts. No homicidal thoughts. SKIN: No rash. No lesions. No wounds. ENDOCRINE: No unexplained weight loss. No weight gain. HEMATOLOGIC/LYMPHATIC: No anemia. No purpura. No petechiae. No prolonged or excessive bleeding. No palpable lymph nodes. PHYSICAL EXAMINATION: HEENT: Head normocephalic, atraumatic. Eyes: Extraocular muscles are intact. Pupils are equal, round and reactive to light and accommodation. Ears: No lesions. Nose appeared normal. Throat: No exudate or erythema. NECK: Supple. No JVD, no carotid bruit. No lymphadenopathy or thyromegaly. LUNGS: Decreased breath sounds but clear to auscultation. Percussion note normal. Chest symmetrical. HEART: S1, S2, no S3. No murmurs. No cyanosis or clubbing. No ascites. Pulses: Dorsalis pedis and posterior tibial pulses +1 to +2 both sides. ABDOMEN: Soft. Nontender. Bowel sounds active. No CVA tenderness. No mass felt. EXTREMITIES: No edema. Full range of motion of all extremities, equal. NEUROLOGIC: No focal deficit. Cranial nerves II through XII are grossly intact. No headache, no double vision or headache. SKIN: Not dry. Intact. Turgor - normal. LYMPHATIC: No palpable lymph nodes/no lymphedema. MUSCULOSKELETAL: Normal joints with no swelling. Muscle tone is normal. LABS: EKG sinus rhythm and no acute change. Cardiac markers are negative for acute OR or ischemia. Telemetry strips examined and sinus rhythm. No ST-T wave change. Echo showed borderline LVH with borderline LA cavity enlargement with normal LV contractility. Dobutamine stress echo no ischemia, no chest pain, normal LV contractility of the left ventricle before Dobutamine infusion and during and after Dobutamine infusion. FINAL CONCLUSION: 1. Chest pain, seems to be noncardiac RECOMMENDATIONS: 1. The patient is advised to lose weight. She is morbidly obese 2. Weight loss diet discussed 3. Counseling for smoking done 4. The patient's lipid profile unknown but she was explained about Non HDL factor which should be less than 100. 5. Strongly advised to followup with primary physician Thanks for referral. Will sign out of the case CONDITION: Stable. MTDD
--- NOTE | 2017-08-31 14:41 | CONS ---
The patient seen on consultation 08/29/17: Level 5 08/30/17: Extensive. MTDD
--- NOTE | 2017-09-30 10:54 | CONS ---
DATE OF CONSULTATION: 08/29/17 REASON FOR CONSULTATION: Chest pain and Hypertension HISTORY OF PRESENT ILLNESS: Onset of chest pain three days prior to coming to ER. Pain is midsternal and is accompanied by headache, jaw pain and left arm pain. REVIEW OF SYSTEMS: CONSTITUTIONAL: No night sweats. No fatigue, malaise, lethargy. No fever or chills. HEENT: Eyes: No visual changes. No eye pain. No eye discharge. ENT: No sinus drainage. No epistaxis. No sinus pain. No sore throat. No odynophagia. No ear pain. No congestion. RESPIRATORY: Cough-Nonproductive, no congestion. No hemoptysis. No shortness of breath. CARDIOVASCULAR: Angina symptoms. No CHF symptoms. No atypical chest pain for CAD. No palpitations. No orthopnea. GASTROINTESTINAL: No abdominal pain. No nausea or vomiting. No diarrhea or constipation. No hematemesis. No hematochezia. GENITOURINARY: No urgency. No frequency. No dysuria. No hematuria. No obstructive symptoms. No discharge. No pain. No significant abnormal bleeding. MUSCULOSKELETAL: No musculoskeletal pain. No joint swelling. NEUROLOGICAL: Headache. No neck pain. No syncope. No seizures. No dizziness. PSYCHIATRIC: Not anxious. No depression. No suicidal thoughts. No homicidal thoughts. SKIN: No rash. No lesions. No wounds. Dry and intact. ENDOCRINE: No unexplained weight loss. No weight gain. HEMATOLOGIC/LYMPHATIC: No anemia. No purpura. No petechiae. No prolonged or excessive bleeding. No palpable lymph nodes. MEDICATIONS: Combivent one spray twice a day Topamax 50mg PO twice a day Gabapentin 600mg PO three times a day Metoprolol Tartrate 100mg PO twice a day ALLERGIES: Imitrex Penicillin Codeine Aspirin Ultram PAST MEDICAL HISTORY/PAST SURGICAL HISTORY: COPD Asthma GERD Hepatitis C Chronic abdominal pain Migraine Anxiety Depression Bipolar Arthritis Back pain Joint pain Uterine cancer Irritable bowel syndrome Hysterectomy Tubal ligation Cholecystectomy Tonsillectomy Arm Surgery Hand surgery SOCIAL/PERSONAL/FAMILY HISTORY: The patient smokes, No alcohol use and . PHYSICAL EXAMINATION: GENERAL: The patient is oriented times 3. VITAL SIGNS: Pulse 88, blood pressure 149/109, temperature 98.1, pulse ox 98%, weight 275, height 5'5 with BMI 45.8. HEENT: Head normocephalic, atraumatic. Eyes: Extraocular muscles are intact. Pupils are equal, round and reactive to light and accommodation. Ears: No lesions. Nose appeared normal. Throat: No exudate or erythema. NECK: Supple. No JVD, no carotid bruit. No lymphadenopathy or thyromegaly. LUNGS: Clear to auscultation. Percussion note normal. Chest symmetrical. HEART: S1, S2, no S3. No murmurs. No cyanosis or clubbing. No ascites. Pulses: Dorsalis pedis and posterior tibial pulses +1. ABDOMEN: Soft. Nontender. Bowel sounds active. No CVA tenderness. No mass felt. EXTREMITIES: No edema. Full range of motion of all extremities, equal. NEUROLOGIC: No focal deficit. Cranial nerves II through XII are grossly intact. No headache, no double vision or headache. SKIN: Not dry. Intact. Turgor - normal. LYMPHATIC: No palpable lymph nodes/no lymphedema. MUSCULOSKELETAL: Normal joints with no swelling. Muscle tone is normal. LABS: H&H 16.2/48.4, AST 46, Alkaline phosphatase 110, Lipid profile within normal limits, TSH-0.624 Free T4 1.10., EKG normal sinus rhythm, Chest x-ray no cardiopulmonary process. ASSESSMENT: 1. Chest pain rule out ischemic [place], Equivocal 2. Morbid Obesity 3. Migraine RECOMMENDATIONS: 1. Agreed with serial EKGs and Markers 2. Telemetry 3. Echo 2DM Mode 4. Dobutamine stress echo 5. CAD, LDL factors discussed Will follow [facility] referral. [facility]
--- NOTE | 2017-11-04 10:46 | HP ---
DATE OF SERVICE: 08/29/17 CHIEF COMPLAINT: Chest pain. HISTORY OF PRESENT ILLNESS: This is a 42 year old female who came to the emergency room with midsternal chest pain radiating to the left arm and left side for two to three days. The blood pressure has been high and then she started having the chest pain on the day of admission. Some exertional dyspnea , no nausea, vomiting or diarrhea. Initial evaluation with normal white count, D dimer was 246, CMP was normal with normal first set of cardiac enzymes. Drug screen was positive for marijuana and opioids. Chest x-ray was negative. At that time, she was admitted to the observation to rule out acute coronary syndrome. REVIEW OF SYSTEMS: CONSTITUTIONAL: No fever, no chills. HEENT: Normal. ENDOCRINE: No weight gain; no weight loss. CVS: Chest pain with elevated blood pressure. No PND, no orthopnea. Shortness of breath. No PND, no orthopnea. RESPIRATORY: No cough, no congestion. No hemoptysis. GI: No nausea, no vomiting. No abdominal pain. No melena. : No hematuria. No polyuria. MUSCULOSKELETAL: No joint swelling. PSYCHIATRIC: Not anxious. No depression. No suicidal thoughts. No homicidal thoughts. SKIN: Intact, no open lesions. PAST MEDICAL HISTORY: Hypertension Dyslipidemia Irregular heart rate Hepatitis C COPD Sleep apnea DJD of the spine Osteoarthritis Bipolar depression Anxiety PAST SURGICAL HISTORY: Tonsillectomy Hysterectomy PERSONAL HISTORY: Does smoke and smokes marijuana sometimes. No alcohol and no drugs. FAMILY HISTORY: Significant for the coronary artery disease. HOME MEDICATIONS: Combivent, Topamax, Neurontin, Metoprolol. ALLERGIES: Aspirin, Codeine, Penicillin, Sumatriptan and Tramadol. PHYSICAL EXAMINATION: GENERAL: Morbidly obese lady. V/S: Blood pressure 116/79, respiratory rate 20, heart rate 50, temperature 98.6 , saturation 97. HEENT: Atraumatic, normocephalic. No scleral icterus. Mucosa dry. NECK: Supple. No JVD, no bruit. No lymphadenopathy. No thyromegaly. HEART: S1, S2 normal. No murmur. No cyanosis or clubbing. No ascites. LUNGS: Clear to auscultation. No rales or rhonchi. ABDOMEN: Soft, nontender. Bowel sounds are active. No CVA tenderness. No rigidity or guarding. EXTREMITIES: No pedal edema. No cyanosis or clubbing MUSCULOSKELETAL: Normal joints, no swelling. NEUROLOGIC: Normal SKIN: Intact; no open lesions. LYMPHATIC: No lymph nodes palpable. LABS: White count 6.22, hemoglobin 16.2, hematocrit 48.4, platelet count 160, sodium 140, potassium 4.6, chloride 106, bicarb 28, BUN 9, creatinine 0.73, glucose 96. ASSESSMENT: 1. CHEST PAIN, RULE OUT ACUTE CORONARY SYNDROME 2. HYPERTENSION 3. COPD 4. SLEEP APNEA 5. OBESITY 6. OSTEOARTHRITIS 7. BIPOLAR DISORDER 8. DEPRESSION 9. HEPATITIS C PLAN: 1. Admit the patient to the regular floor. 2. CBC, CMP today and daily. 3. Cardiac enzymes and Troponin. 4. TSH, lipids, A1C. 5. Cardiology consultation with Dr. Mcdaniel. TIME SPENT: MORE THAN 70 minutes MTDD
--- NOTE | 2017-11-04 11:00 | DS ---
DATE OF SERVICE: 08/30/17 FINAL DIAGNOSIS: 1. PLEURISY 2. CHEST PAIN, NONCARDIAC 3. HYPERTENSION 4. DYSLIPIDEMIA 5. MORBID OBESITY 6. CHRONIC OBSTRUCTIVE PULMONARY DISEASE 7. OBSTRUCTIVE SLEEP APNEA 8. BIPOLAR DISORDER 9. DEPRESSION 10. DJD OF THE SPINE 11. HEPATITIS C PLAN: 1. Discharge the patient home. 2. Follow up at the [facility] within four to five days. 3. Diet: Cardiac and healthy. 4. Activity: As much as tolerated. 5. Weight loss and lifestyle modification was discussed. 6. Continue the home medications which are Hydrocodone, Librium, Flexeril, Neurontin, Indocin, Lisinopril, Topamax. DISEASE SPECIFIC EDUCATION: About the chest pain, pleurisy, coronary artery disease, obesity, weight loss was discussed. HOSPITAL COURSE: Neha Ornelas, who is a 42 year old female, came to the emergency room with chest pain. She was noncompliant with her blood pressure medication and does not take it everyday as given. With her given age and family history, the patient was admitted to the hospital. Dr. Mcdaniel cardiology consultation was obtained. Two sets of cardiac enzymes were negative. Dr. Mcdaniel did an echocardiogram, which was showing ejection fraction 66% and left ventricular hypertrophy with a borderline left atrial cavity. Dobutamine Stress echo showed no evidence of ischemia. Cholesterol panel was normal. TSH was normal. The patient was pain free by the next day and the chest x-ray did not show any acute findings and the patient was feeling better and did not have any problems by the next day. At that time the patient was discharged to home and we will treat the pleurisy as an outpatient. Lifestyle modification and weight loss and diet was discussed and she is to follow up at the [facility]. TIME SPENT: MORE THAN 35 MINUTES MTDD
== END 2017-08-30 14:18 | disposition home or self-care (01) ==
LOC: ED 07:29 → MEDSURG B 09:12
PROVIDERS: ADMIT Emergency Medicine; ATTEND Emergency Medicine
DX: R09.1 Pleurisy (principal); R07.89 Other chest pain; R68.84 Jaw pain; M79.622 Pain in left upper arm; I51.7 Cardiomegaly; R06.02 Shortness of breath; F12.90 Cannabis use, unspecified, uncomplicated; F11.90 Opioid use, unspecified, uncomplicated; E66.01 Morbid (severe) obesity due to excess calories; Z91.14 Patient's other noncompliance with medication regimen; I10 Essential (primary) hypertension; E78.5 Hyperlipidemia, unspecified; J44.9 Chronic obstructive pulmonary disease, unspecified; G47.33 Obstructive sleep apnea (adult) (pediatric); F31.9 Bipolar disorder, unspecified; F32.9 Major depressive disorder, single episode, unspecified; M47.9 Spondylosis, unspecified; B18.2 Chronic viral hepatitis C; G43.909 Migraine, unspecified, not intractable, without status migrainosus; Z79.899 Other long term (current) drug therapy
CPT/HCPCS: 36415; 80053; 80061; 80306; 82550; 84439; 84443; 84481; 84484; 85025; 85379; 93005; 93010; 96361; 96372; 96374; 96375; 96376; 99217; 99220; 99226; 99245; 99284

== ENCOUNTER 2017-09-02 11:06 | Outpatient (CLI) | payer OTHER | END 2017-09-02 11:07 | disposition short-term general hospital (02) | LOC: AMBL 11:06 | PROVIDERS: ATTEND Emergency Medicine | DX: M54.5 Low back pain (principal); R07.89 Other chest pain; V73.6XXA Passenger on bus injured in collision with car, pick-up truck or van in traffic accident, initial encounter ==

== ENCOUNTER 2017-09-03 14:11 | Emergency (ER) ==
[2017-09-03 14:20] VITALS: BP 151/95; TEMP 98.3; BMI 48.1
[2017-09-03] MEDS ORDERED: DILAUDID 1 MG/ML SYRINGE IM STA (16:14)
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
== END 2017-09-03 17:15 | disposition home or self-care (01) ==
LOC: ED 14:11
DX: S20.211A Contusion of right front wall of thorax, initial encounter (principal); M54.9 Dorsalgia, unspecified; V79.50XA Passenger on bus injured in collision with unspecified motor vehicles in traffic accident, initial encounter; F17.210 Nicotine dependence, cigarettes, uncomplicated
CPT/HCPCS: 96372; 99283

== ENCOUNTER 2017-09-05 10:50 | Inpatient (IN) ==
[2017-09-05 11:19] VITALS: BMI 46.7
[2017-09-05] MEDS: SODIUM CHLORIDE 1,000 ML IV SCH (12:59)
[2017-09-05] MEDS: ZOFRAN 4 MG/2 ML IVP PRN (12:59)
[2017-09-05] MEDS: MORPHINE 2 MG/ML SYRINGE IVP PRN ×2 (13:00→19:28)
--- NOTE | 2017-09-05 13:32 | CT ---
EXAM: CT chest without contrast HISTORY: Chest pain COMPARISON: None TECHNIQUE: CT chest performed without intravenous contrast. Coronal and sagittal reformatted images obtained. FINDINGS: Thyroid and thoracic inlet appear normal. Heart normal in size. No pericardial effusion. Aorta normal in caliber. Esophagus unremarkable. Evaluation for lymphadenopathy limited without c ontrast. No lymphadenopathy identified. Visualized portion upper abdomen demonstrates no acute abno rmality. Patient status post cholecystectomy. No acute abnormalities of the bones. Mild degenerati ve change in the spine. Probable mild atelectasis right middle lobe versus less likely small area of consolidation. No airspace consolidation. No pleural effusion. No pneumothorax. IMPRESSION: Probable mild atelectasis in the right middle lobe versus less likely small area of cons olidation (pneumonia or contusion).
[2017-09-05] MEDS: NEURONTIN PO SCH ×2 (14:44→21:08)
[2017-09-05] MEDS ORDERED: NON-FORMULARY MEDICATION (Gabapentin [Gabapentin] 600 MG) PO SCH (15:00)
[2017-09-05] MEDS: ROCEPHIN 1 GM in SODIUM CHLORIDE 50 ML IV SCH (18:30)
[2017-09-05] MEDS: PREDNISONE PO SCH (18:30)
[2017-09-05] MEDS ORDERED: NON-FORMULARY MEDICATION (Metoprolol Tartrate [Metoprolol Tartrate] 100 MG) PO SCH (21:00)
[2017-09-05] MEDS: LOPRESSOR PO SCH (21:08)
[2017-09-05] MEDS: LIBRIUM PO PRN (21:08)
[2017-09-05] MEDS: FLEXERIL PO PRN (21:08)
[2017-09-05] MEDS: COMBIVENT RESPIMAT INHAL SPRAY IH SCH (21:08)
[2017-09-05] MEDS: NYSTOP POWDER TP SCH (21:09)
[2017-09-05] MEDS: TOPAMAX PO SCH (21:09)
[2017-09-05] MEDS: NON-FORMULARY MEDICATION (Prazosin Hcl [Prazosin Hcl] 2 MG) PO SCH (21:09)
[2017-09-05] MEDS: NICODERM 21 MG TD SCH (21:10)
[2017-09-05] MEDS ORDERED: MORPHINE 2 MG/ML SYRINGE IVP STA (23:47)
[2017-09-06] MEDS: MORPHINE 2 MG/ML SYRINGE IVP PRN ×2 (03:49→09:19)
[2017-09-06] MEDS ORDERED: SOLU-MEDROL 40 MG IVP STA (07:19)
[2017-09-06] MEDS ORDERED: SOLU-MEDROL 125 MG IVP STA (07:27)
[2017-09-06] MEDS: COMBIVENT RESPIMAT INHAL SPRAY IH SCH ×2 (08:55→21:07)
[2017-09-06] MEDS: ROCEPHIN 1 GM in SODIUM CHLORIDE 50 ML IV SCH (08:55)
[2017-09-06] MEDS: LOPRESSOR PO SCH ×2 (08:55→21:08)
[2017-09-06] MEDS: NICODERM 21 MG TD SCH (08:55)
[2017-09-06] MEDS: TOPAMAX PO SCH ×2 (08:56→21:08)
[2017-09-06] MEDS: NEURONTIN PO SCH ×3 (08:56→21:08)
[2017-09-06] MEDS: ZOFRAN 4 MG/2 ML IVP PRN (08:56)
[2017-09-06] MEDS: PREDNISONE PO SCH ×2 (08:56→16:40)
[2017-09-06] MEDS: TORADOL IVP SCH ×3 (08:57→21:13)
[2017-09-06] MEDS: PROTONIX IV IVP SCH ×2 (08:57→21:09)
[2017-09-06] MEDS: NYSTOP POWDER TP SCH ×3 (09:00→21:45)
[2017-09-06] MEDS: CARAFATE PO SCH ×3 (11:05→21:08)
--- NOTE | 2017-09-06 11:47 | CT ---
EXAM: CT abdomen pelvis without contrast HISTORY: Pain COMPARISON: 08/08/2016 TECHNIQUE: CT abdomen pelvis performed without intravenous contrast. Coronal and sagittal reformatt ed images obtained. FINDINGS: Mild dependent density lung bases. No free air. No acute abnormalities of the bones. De generate change in the spine. Heart normal in size. Evaluation organ parenchyma limited without con trast. Liver appears normal. Patient status post cholecystectomy. Pancreas unremarkable. Spleen u nremarkable. Adrenals unremarkable. Kidneys unremarkable. Aorta normal in caliber. Bladder unrema rkable. Patient status post hysterectomy. Stomach unremarkable. No dilated loops small bowel. Sakina endix unremarkable. Colon unremarkable. Minimal fat-containing umbilical hernia. No inflammatory s tranding identified in the abdomen pelvis. IMPRESSION: No acute abnormality identified in the abdomen pelvis.
[2017-09-06] MEDS: NON-FORMULARY MEDICATION (Prazosin Hcl [Prazosin Hcl] 2 MG) PO SCH (21:14)
[2017-09-07] MEDS: SODIUM CHLORIDE 1,000 ML IV SCH (00:42)
[2017-09-07] MEDS: FLEXERIL PO PRN ×3 (02:08→20:22)
[2017-09-07] MEDS: MORPHINE 2 MG/ML SYRINGE IVP PRN (02:09)
[2017-09-07] MEDS: LIBRIUM PO PRN ×3 (02:09→20:23)
[2017-09-07] MEDS: TORADOL IVP SCH ×3 (05:06→20:29)
[2017-09-07] MEDS: CARAFATE PO SCH ×4 (06:15→20:15)
[2017-09-07] MEDS: ZOFRAN 4 MG/2 ML IVP PRN (06:23)
[2017-09-07] MEDS ORDERED: STADOL IVP STA (08:26)
[2017-09-07] MEDS ORDERED: STADOL ONE ×2 (08:41→09:23)
[2017-09-07] MEDS ORDERED: ZOFRAN 4 MG/2 ML IVP STA (09:00)
[2017-09-07] MEDS: PROTONIX IV IVP SCH ×2 (09:23→20:29)
[2017-09-07] MEDS: NICODERM 21 MG TD SCH (09:24)
[2017-09-07] MEDS: NEURONTIN PO SCH ×3 (09:24→20:16)
[2017-09-07] MEDS: TOPAMAX PO SCH ×2 (09:24→20:16)
[2017-09-07] MEDS: LOPRESSOR PO SCH ×2 (09:24→20:15)
[2017-09-07] MEDS: PREDNISONE PO SCH ×2 (09:25→17:07)
[2017-09-07] MEDS: NYSTOP POWDER TP SCH ×2 (09:25→20:38)
[2017-09-07] MEDS: ROCEPHIN 1 GM in SODIUM CHLORIDE 50 ML IV SCH (09:26)
[2017-09-07] MEDS: COMBIVENT RESPIMAT INHAL SPRAY IH SCH ×2 (09:30→20:14)
[2017-09-07] MEDS ORDERED: ATIVAN PO STA (14:36)
[2017-09-07] MEDS ORDERED: ATIVAN ONE (14:47)
--- NOTE | 2017-09-07 14:52 | DI ---
EXAM: Radiographs, right humerus HISTORY: Right arm pain. COMPARISON: 10/03/2015. TECHNIQUE: 2 views. FINDINGS: Bone mineralization is normal. There is no fracture or dislocation. The joint spaces are maintained. No focal soft tissue abnormality is seen. IMPRESSION: No fracture or dislocation.
--- NOTE | 2017-09-07 14:52 | DI ---
EXAM: Radiographs, right forearm HISTORY: Right forearm pain. COMPARISON: None available. TECHNIQUE: Two views. FINDINGS: Bone mineralization is normal. There is no fracture or dislocation. The joint spaces are maintained. No focal soft tissue abnormality is seen. IMPRESSION: No fracture or dislocation.
--- NOTE | 2017-09-07 14:52 | DI ---
EXAM: Radiographs, right shoulder HISTORY: Shoulder pain. COMPARISON: 10/03/2015. TECHNIQUE: Three views. FINDINGS: Bone mineralization is normal. There is no fracture or dislocation. The joint spaces are maintained. No focal soft tissue abnormality is seen. IMPRESSION: No fracture or dislocation.
[2017-09-07] MEDS: PERCOCET 5-325 PO PRN (20:14)
[2017-09-07] MEDS: NON-FORMULARY MEDICATION (Prazosin Hcl [Prazosin Hcl] 2 MG) PO SCH (20:18)
[2017-09-08] MEDS: TORADOL IVP SCH ×3 (04:02→20:25)
[2017-09-08] MEDS: PERCOCET 5-325 PO PRN ×3 (04:08→20:25)
[2017-09-08] MEDS: CARAFATE PO SCH ×4 (06:07→20:24)
[2017-09-08] MEDS: PROTONIX IV IVP SCH ×2 (09:37→20:25)
[2017-09-08] MEDS: TOPAMAX PO SCH ×2 (09:38→20:25)
[2017-09-08] MEDS: NYSTOP POWDER TP SCH ×2 (09:38→22:56)
[2017-09-08] MEDS: PREDNISONE PO SCH ×2 (09:38→16:56)
[2017-09-08] MEDS: NEURONTIN PO SCH ×3 (09:38→20:25)
[2017-09-08] MEDS: FLEXERIL PO PRN (09:38)
[2017-09-08] MEDS: NICODERM 21 MG TD SCH (09:39)
[2017-09-08] MEDS: LOPRESSOR PO SCH ×2 (09:39→20:24)
[2017-09-08] MEDS: COMBIVENT RESPIMAT INHAL SPRAY IH SCH ×2 (09:39→20:24)
[2017-09-08] MEDS: LIBRIUM PO PRN ×2 (09:39→20:46)
[2017-09-08] MEDS: ROCEPHIN 1 GM in SODIUM CHLORIDE 50 ML IV SCH (09:40)
[2017-09-08] MEDS: ZOFRAN 4 MG/2 ML IVP PRN ×2 (12:06→20:45)
--- NOTE | 2017-09-08 13:27 | CT ---
Exam: CT of the chest without contrast History: Pneumonia Technique: [address] of the chest without contrast FINDINGS: The lung windows show no infiltrative opacities. There is trace right pleural fluid adjace nt atelectasis. The heart, great vessels and pericardium appear normal by noncontrast CT. No medias tinal lymph node enlargement or abundance. No acute findings of the chest wall soft tissues or bony thorax. No acute findings of the upper abdomen. Impression: 1. Trace right pleural fluid and adjacent atelectasis, nonspecific. No significant abnormality of t he chest otherwise.
[2017-09-08] MEDS: SODIUM CHLORIDE 1,000 ML IV SCH (16:13)
[2017-09-08] MEDS: NON-FORMULARY MEDICATION (Prazosin Hcl [Prazosin Hcl] 2 MG) PO SCH (20:26)
[2017-09-09] MEDS: FLEXERIL PO PRN (00:26)
[2017-09-09] MEDS: CARAFATE PO SCH ×4 (06:05→21:39)
[2017-09-09] MEDS: TORADOL IVP SCH ×3 (06:06→21:48)
[2017-09-09] MEDS: ROCEPHIN 1 GM in SODIUM CHLORIDE 50 ML IV SCH (09:20)
[2017-09-09] MEDS: PERCOCET 5-325 PO PRN ×2 (09:25→17:17)
[2017-09-09] MEDS: PREDNISONE PO SCH ×2 (09:25→17:17)
[2017-09-09] MEDS: NEURONTIN PO SCH ×3 (09:26→21:40)
[2017-09-09] MEDS: TOPAMAX PO SCH ×2 (09:26→21:39)
[2017-09-09] MEDS: LIBRIUM PO PRN ×2 (09:26→21:39)
[2017-09-09] MEDS: COMBIVENT RESPIMAT INHAL SPRAY IH SCH ×3 (09:26→21:39)
[2017-09-09] MEDS: LOPRESSOR PO SCH ×2 (09:26→21:40)
[2017-09-09] MEDS: NYSTOP POWDER TP SCH ×2 (09:27→21:41)
[2017-09-09] MEDS: NICODERM 21 MG TD SCH (09:28)
[2017-09-09] MEDS: PROTONIX IV IVP SCH ×2 (09:35→21:40)
[2017-09-09] MEDS ORDERED: STADOL IVP STA (12:01)
[2017-09-09] MEDS ORDERED: STADOL ONE ×2 (12:26→12:35)
--- NOTE | 2017-09-09 18:35 | CT ---
Exam: CT of the brain without intravenous contrast. Comparison: 09/12/2015. Reason for exam: Headache. FINDINGS: No acute intracranial hemorrhage, mass effect, ventricular dilatation, or territorial infa rction. 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 The quadrigeminal and ambient cisterns are maria nt. There is no extraaxial fluid collection. The calvarium is intact. There is mild mucosal thicke kyler in the ethmoid sinuses with polypoid mucosal thickening of the left sphenoid sinus. Impression: 1. No acute intracranial findings. 2. Minimal mucosal thickening in the ethmoid sinus with mild polypoid mucosal thickening in the left sphenoid sinus
[2017-09-09] MEDS: NON-FORMULARY MEDICATION (Prazosin Hcl [Prazosin Hcl] 2 MG) PO SCH (21:48)
[2017-09-10] MEDS: ZOFRAN 4 MG/2 ML IVP PRN (03:38)
[2017-09-10] MEDS: PERCOCET 5-325 PO PRN ×2 (03:40→12:39)
[2017-09-10] MEDS: TORADOL IVP SCH ×3 (04:51→20:32)
[2017-09-10] MEDS: CARAFATE PO SCH ×4 (06:01→20:33)
[2017-09-10] MEDS: NYSTOP POWDER TP SCH ×2 (08:24→21:00)
[2017-09-10] MEDS: PROTONIX IV IVP SCH (08:24)
[2017-09-10] MEDS: ROCEPHIN 1 GM in SODIUM CHLORIDE 50 ML IV SCH (08:24)
[2017-09-10] MEDS: TOPAMAX PO SCH ×2 (08:24→20:32)
[2017-09-10] MEDS: COMBIVENT RESPIMAT INHAL SPRAY IH SCH ×2 (08:24→20:33)
[2017-09-10] MEDS: LOPRESSOR PO SCH ×2 (08:25→20:33)
[2017-09-10] MEDS: NEURONTIN PO SCH ×3 (08:25→20:33)
[2017-09-10] MEDS: PREDNISONE PO SCH ×2 (08:25→16:40)
[2017-09-10] MEDS: NICODERM 21 MG TD SCH (08:25)
[2017-09-10] MEDS ORDERED: ATIVAN PO STA (16:25)
[2017-09-10] MEDS: CYMBALTA PO SCH (20:32)
[2017-09-10] MEDS: NON-FORMULARY MEDICATION (Prazosin Hcl [Prazosin Hcl] 2 MG) PO SCH (20:39)
[2017-09-11] MEDS: ZOFRAN 4 MG/2 ML IVP PRN ×2 (00:58→08:17)
[2017-09-11] MEDS: PERCOCET 5-325 PO PRN ×3 (00:58→20:27)
[2017-09-11] MEDS: TORADOL IVP SCH ×3 (06:08→20:28)
[2017-09-11] MEDS: CARAFATE PO SCH ×4 (06:09→20:27)
[2017-09-11] MEDS: FLEXERIL PO PRN (06:09)
[2017-09-11] MEDS: PROTONIX PO SCH ×2 (06:30→17:47)
[2017-09-11] MEDS: COMBIVENT RESPIMAT INHAL SPRAY IH SCH ×3 (08:13→20:29)
[2017-09-11] MEDS: PREDNISONE PO SCH ×2 (08:14→17:47)
[2017-09-11] MEDS: NYSTOP POWDER TP SCH ×2 (08:14→20:32)
[2017-09-11] MEDS: NICODERM 21 MG TD SCH (08:14)
[2017-09-11] MEDS: LOPRESSOR PO SCH ×2 (08:14→20:27)
[2017-09-11] MEDS: TOPAMAX PO SCH ×2 (08:14→20:27)
[2017-09-11] MEDS: NEURONTIN PO SCH ×3 (08:14→20:27)
[2017-09-11] MEDS: ROCEPHIN 1 GM in SODIUM CHLORIDE 50 ML IV SCH (09:10)
[2017-09-11] MEDS: KEFLEX PO SCH (20:26)
[2017-09-11] MEDS: CYMBALTA PO SCH (20:27)
[2017-09-11] MEDS: NON-FORMULARY MEDICATION (Prazosin Hcl [Prazosin Hcl] 2 MG) PO SCH (20:30)
[2017-09-12] MEDS: LIBRIUM PO PRN (00:37)
[2017-09-12] MEDS: FLEXERIL PO PRN (00:38)
[2017-09-12] MEDS: ZOFRAN 4 MG/2 ML IVP PRN (01:59)
[2017-09-12] MEDS: PERCOCET 5-325 PO PRN (04:35)
[2017-09-12] MEDS: TORADOL IVP SCH ×2 (04:36→13:56)
[2017-09-12 05:53] VITALS: BP 130/83; TEMP 98.4
[2017-09-12] MEDS: CARAFATE PO SCH ×2 (06:05→12:00)
[2017-09-12] MEDS: PROTONIX PO SCH (06:05)
[2017-09-12] MEDS ORDERED: STADOL IVP ONE (08:41)
[2017-09-12] MEDS: COMBIVENT RESPIMAT INHAL SPRAY IH SCH (08:54)
[2017-09-12] MEDS: NICODERM 21 MG TD SCH (08:54)
[2017-09-12] MEDS: TOPAMAX PO SCH (08:55)
[2017-09-12] MEDS: NEURONTIN PO SCH (08:55)
[2017-09-12] MEDS: KEFLEX PO SCH (08:55)
[2017-09-12] MEDS: PREDNISONE PO SCH (08:55)
[2017-09-12] MEDS: LOPRESSOR PO SCH (08:55)
[2017-09-12] MEDS: NYSTOP POWDER TP SCH (08:56)
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
== END 2017-09-12 14:20 | disposition home or self-care (01) | DRG 194 ==
LOC: MEDSURG A 10:50
PROVIDERS: ADMIT Emergency Medicine; ATTEND Emergency Medicine
DX: J18.9 Pneumonia, unspecified organism (principal); S27.329A Contusion of lung, unspecified, initial encounter; R09.1 Pleurisy; I10 Essential (primary) hypertension; R07.9 Chest pain, unspecified; E78.5 Hyperlipidemia, unspecified; E66.9 Obesity, unspecified; B19.20 Unspecified viral hepatitis C without hepatic coma; R06.02 Shortness of breath; F19.90 Other psychoactive substance use, unspecified, uncomplicated; F41.8 Other specified anxiety disorders; J44.9 Chronic obstructive pulmonary disease, unspecified; M47.9 Spondylosis, unspecified; R10.9 Unspecified abdominal pain; G43.919 Migraine, unspecified, intractable, without status migrainosus; M79.621 Pain in right upper arm; T14.90XA Injury, unspecified, initial encounter; W19.XXXA Unspecified fall, initial encounter; Y92.239 Unspecified place in hospital as the place of occurrence of the external cause; V79.9XXA Bus occupant (driver) (passenger) injured in unspecified traffic accident, initial encounter; Z59.0 Homelessness; Z79.899 Other long term (current) drug therapy
CPT/HCPCS: 36415; 80053; 80306; 81001; 82550; 82553; 82803; 84484; 85025; 87081; 93005; 93010; 97802; 99223; 99233; 99239

== ENCOUNTER 2017-09-21 10:06 | Emergency (ER) | payer OTHER ==
[2017-09-21 10:07] VITALS: BMI 46.7
[2017-09-21 10:11] VITALS: TEMP 99.3
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
[2017-09-21] MEDS ORDERED: PHENERGAN 25 MG/ML VIAL IM STA (11:17)
[2017-09-21] MEDS ORDERED: DEMEROL 50 MG/ML VIAL IM STA (11:17)
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
[2017-09-21 12:09] VITALS: BP 131/93
== END 2017-09-21 12:09 | disposition home or self-care (01) ==
LOC: ED 10:06
DX: S22.31XS Fracture of one rib, right side, sequela (principal); I10 Essential (primary) hypertension; F17.210 Nicotine dependence, cigarettes, uncomplicated; V89.2XXD Person injured in unspecified motor-vehicle accident, traffic, subsequent encounter
CPT/HCPCS: 96372; 99283

== ENCOUNTER 2017-10-06 05:55 | Emergency (ER) ==
[2017-10-06] MEDS ORDERED: ZOFRAN 4 MG/2 ML IM STA (06:05)
[2017-10-06 06:06] VITALS: BP 150/96; TEMP 96.6; BMI 46.5
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
[2017-10-06 06:39] LABS: BASOPHILS # (AUTO) 0.1 K/uL (0-0.2); BASOPHILS % (AUTO) 0.6 % (0.0-3.0); EOSINOPHILS # (AUTO) 0.2 K/ul (0.0-0.7); EOSINOPHILS % (AUTO) 1.7 % (0.0-7.0); HEMATOCRIT 45.8 % (37.0-47.0); HEMOGLOBIN 15.9 g/dl (12.0-16.0); IMMATURE GRANULOCYTE % (AUTO) 0.6 % (0.0-5.0); LYMPHOCYTES # (AUTO) 1.2 K/uL (0.60-3.4); LYMPHOCYTES % (AUTO) 13.5 (10.0-50.0); MEAN CORPUSCULAR HEMOGLOBIN 32.4 pg (27.0-31.0); MEAN CORPUSCULAR HGB CONC 34.7 (31.8-35.4); MEAN CORPUSCULAR VOLUME 93.5 fl (81.0-99.0); MONOCYTES # (AUTO) 0.4 K/uL (0.4-2.0); MONOCYTES % (AUTO) 4.9 (0-10); NEUTROPHILS # (AUTO) 6.9 K/ul (2.0-6.9); NEUTROPHILS % (AUTO) 78.7; PLATELET COUNT 208 10^3/uL (140-440); WHITE BLOOD COUNT 8.72 K/ul (4.6-10.2)
[2017-10-06 06:41] LABS: BILIRUBIN,URINE 2+ (NEGATIVE); KETONES,URINE Trace (NEGATIVE); LEUKOCYTE ESTERASE ,URINE Negative (NEGATIVE); NITRITE,URINE Negative (NEGATIVE); PROTEIN,URINE 2+ (NEGATIVE); URINE, BLOOD Negative (NEGATIVE)
[2017-10-06 06:47] LABS: ADD URINE MICROSCOPIC YES
[2017-10-06 06:47] LABS: FLU INTERNAL QC INTERNAL QC VALID; MOLECULAR FLU A NEGATIVE (NEGATIVE); MOLECULAR FLU B NEGATIVE (NEGATIVE)
[2017-10-06 06:48] LABS: BACTERIA,URINE TRACE (NOT PRESENT)
[2017-10-06 06:55] LABS: ALBUMIN 3.6 g/dL (3.4-5.0); ALBUMIN/GLOBULIN RATIO 0.82; ANION GAP 14.7; BILIRUBIN,TOTAL 0.7 mg/dL (0.00-1.20); BUN/CREATININE RATIO 12.67; CALCIUM 9.7 mg/dL (8.2-10.2); CREATININE 0.71 mg/dL (0.60-1.30); POTASSIUM 3.7 mmol/L (3.5-5.10)
== END 2017-10-06 07:44 | disposition home or self-care (01) ==
LOC: ED 05:55
DX: K52.9 Noninfective gastroenteritis and colitis, unspecified (principal); E86.0 Dehydration; F17.210 Nicotine dependence, cigarettes, uncomplicated
CPT/HCPCS: 36415; 80053; 81001; 83605; 84145; 85025; 87040; 87651; 87804; 87880; 96372; 99283

== ENCOUNTER 2017-11-30 08:40 | Emergency (ER) ==
[2017-11-30 08:46] VITALS: BP 115/82; TEMP 98.7; BMI 49.0
[2017-11-30] MEDS ORDERED: ZOFRAN 4 MG/2 ML IM STA (08:50)
[2017-11-30] MEDS ORDERED: MORPHINE 10 MG/ML SYRINGE IM STA (08:51)
--- NOTE | 2017-11-30 08:54 | ED.PDOC ---
General ED Provider: Dr. SOHAM GEIGER Chief Complaint: Back Pain Stated Complaint: low back pain Time Seen by Physician: 09:00 (seen with february) Mode of Arrival: Walk-In Information Source: Patient Exam Limitations: No limitations Primary Care Provider: ALISE [facility]AS [facility] Nursing and Triage Documentation Reviewed and Agree: Yes Reviewed sepsis parameters & appropriate labs ordered?: Yes System Inflammatory Response Syndrome: Not Applicable Sepsis Protocol: For patient's 13 years and over: Temp is 96.8 and below OR 101 and greater Pulse >90 BPM Resp >20/minute Acutely Altered Mental Status Are patient's symptoms suggestive of a new infection, such as: -Pneumonia -Skin, Soft Tissue -Endocarditis -UTI -Bone, Joint Infection -Implantable Device -Acute Abdominal Infection -Wound Infection -Meningitis -Blood Stream Catheter Infection -Unknown System Inflammatory Response Syndrome: Not Applicable Musculoskeletal Complaint Exam - Back Pain Complaint/Exam Mechanism of Injury: Reports: No known trauma, Other (lost her meds ) Onset/Duration: low back pain chronic lost pain meds more pain today Symptoms Are: Still present Timing: Constant Episodes Lasting: Hours Initial Severity: Moderate Current Severity: Moderate Location: Reports: Discrete Character: Reports: Aching Aggravating: Reports: Movements, Lifting, Bending, Walking Alleviating: Reports: Rest Associated Signs and Symptoms: Denies: Swelling, Redness, Bruising, Fever, Weakness, Numbness, Tingling, Abdominal pain, Flank pain, Bladder incontinence, Bowel incontinence, Weight loss, Pain with weight bearing Related History: Reports: Similar episode TAD Risk Factors: Reports: None Cauda Equina Risk Factors: Reports: None Epidural Abcess Risk Factors: Reports: None Focal Tenderness: No Paraspinal Muscle Tenderness: No Paraspinal Muscle Spasm: No Scoliosis: No Lordosis: No Kyphosis: No Hip Motion Testing Pain: Right Negative, Left Negative Focal Weakness: Present: None Review of Systems - Review Of Systems Constitutional: Reports: No symptoms Eyes: Reports: No symptoms Ears, Nose, Mouth, Throat: Reports: No symptoms Respiratory: Reports: No symptoms Cardiac: Reports: No symptoms GI: Reports: No symptoms : Reports: No symptoms Musculoskeletal: Reports: Back pain Skin: Reports: No symptoms Neurological: Reports: No symptoms Endocrine: Reports: No symptoms Hematologic/Lymphatic: Reports: No symptoms All Other Systems: Reviewed and Negative Past Medical History - Past Medical History Previously Healthy: Yes Endocrine: Reports: None Cardiovascular: Reports: Hypertension Respiratory: Reports: COPD, Asthma Hematological: Reports: None Gastrointestinal: Reports: GERD, Liver (HEPATITIS C), Other (chronic abd pain) Genitourinary: Reports: None Neuro/Psych: Reports: Migraine, Anxiety, Depression, Bipolar Disorder Musculoskeletal: Reports: Arthritis, Back Pain (OSTEOSPONDILITS, DDD ), Joint Pain (knee) Cancer: Reports: Other (uterine cancer) Last Menstrual Period: hyssterectomy Other Pertinent Past Medical History: tylox, topimax, norco, tylenol migraine meds at home - Surgical History General Surgical History: Reports: Hysterectomy, Tubal ligation, Cholecystectomy , Tonsillectomy, Orthopedic (ARM AND HAND SURGERY) - Family History Family History: Reports: Unknown - Social History Smoking Status: Current every day smoker, Light tobacco smoker, Vaping Hx Substance Use: No Alcohol Screening: None Physical Exam - Physical Exam Appearance: Well-appearing, No pain distress, Well-nourished Eyes: LEONORA, EOMI, Conjunctiva clear ENT: Ears normal, Nose normal, Oropharynx normal Respiratory: Airway patent, Breath sounds clear, Breath sounds equal, Respirations nonlabored Cardiovascular: RRR, Pulses normal, No rub, No murmur GI/: Soft, Nontender, No masses, Bowel sounds normal, No Organomegaly Musculoskeletal: Normal strength, ROM intact, No edema, No calf tenderness Skin: Warm, Dry, Normal color Neurological: Sensation intact, Motor intact, Reflexes intact, Cranial nerves intact, Alert, Oriented Psychiatric: Affect appropriate, Mood appropriate Critical Care Note - Critical Care Note Total Time (mins): 0 Course - Course Orders, Labs, Meds: Orders Category Date Time Status Morphine Sulfate [Morphine 10 mg/ml Syringe] MEDS 11/30/17 08:51 Stat 4 mg IM ONCE STA Ondansetron HCl/Pf [Zofran 4 mg/2 ml] MEDS 11/30/17 08:50 Stat 4 mg IM ONCE STA Medications Discontinued Medications Generic Name Dose Route Start Last Admin Trade Name Freq PRN Reason Stop Dose Admin Morphine Sulfate 4 mg 11/30/17 08:51 Morphine 10 Mg/Ml Syringe IM 11/30/17 08:52 ONCE STA Ondansetron HCl 4 mg 11/30/17 08:50 Zofran 4 Mg/2 Ml IM 11/30/17 08:51 ONCE STA Vital Signs: Temp Pulse Resp BP Pulse Ox 11/30/17 08:40 98.7 F 88 20 115/82 97 Departure - Departure Time of Disposition: 09:33 Disposition: HOME SELF-CARE Discharge Problem: Backache Instructions: Acute Low Back Pain (ED) Condition: Good Pt referred to PMD for follow-up: Yes IPMP verified?: No Allergies/Adverse Reactions: Allergies aspirin Adverse Reaction (Verified 11/30/17 08:49) codeine Adverse Reaction (Verified 11/30/17 08:49) Penicillins Adverse Reaction (Verified 11/30/17 08:49) sumatriptan [From Imitrex] Adverse Reaction (Verified 11/30/17 08:49) "messes with my heart" sumatriptan succinate [From Imitrex] Adverse Reaction (Verified 11/30/17 08:49) "messes with my heart" tramadol [From Ultram] Adverse Reaction (Verified 11/30/17 08:49) Hives patient states she is not actually allergic to this Home Medications: Ambulatory Orders Hydrocodone Bit/Acetaminophen [[place] 5-325] 1 - 2 tab PO Q6HR PRN #7 tablet 04/02 Biotin 10 mcg PO 10,000 daily 11/18/17 Omeprazole 20 mg PO d 11/18/17 Indomethacin [Indocin] 25 mg PO TIDWM PRN 11/30/17 Tizanidine HCl [Zanaflex] 4 mg PO BID 11/30/17
[2017-11-30] MEDS ORDERED: MORPHINE 2 MG/ML SYRINGE IM STA (08:56)
== END 2017-11-30 09:53 | disposition home or self-care (01) ==
LOC: ED 08:40
DX: M54.5 Low back pain (principal); F17.210 Nicotine dependence, cigarettes, uncomplicated
CPT/HCPCS: 96372; 99282

== ENCOUNTER 2017-12-10 08:35 | Emergency (ER) | payer OTHER ==
[2017-12-10 08:42] VITALS: BP 116/78; TEMP 97.2; BMI 2086.1
--- NOTE | 2017-12-10 09:24 | ED.PDOC ---
General ED Provider: Dr. ROXANE LAZO Chief Complaint: Back Pain Stated Complaint: Patient has a history of back pain and follows up with pain management. She has been to [facility] recently and had an MRI that was negative for Disk infection. She was diagnosed with UTI and started on Macrobid. She has been taking Neurontin, Zanaflex and Ibuprufen she however has taken more of her Hydrocodone and is out early. States she has severe lower back pain. Time Seen by Physician: 09:20 Mode of Arrival: Walk-In Information Source: Patient Exam Limitations: No limitations Primary Care Provider: ALISE MAYO Seen Within Last 72 Hours for Same Complaint By: ED ([facility]) Nursing and Triage Documentation Reviewed and Agree: Yes Reviewed sepsis parameters & appropriate labs ordered?: No System Inflammatory Response Syndrome: Not Applicable Sepsis Protocol: For patient's 13 years and over: Temp is 96.8 and below OR 101 and greater Pulse >90 BPM Resp >20/minute Acutely Altered Mental Status Are patient's symptoms suggestive of a new infection, such as: -Pneumonia -Skin, Soft Tissue -Endocarditis -UTI -Bone, Joint Infection -Implantable Device -Acute Abdominal Infection -Wound Infection -Meningitis -Blood Stream Catheter Infection -Unknown System Inflammatory Response Syndrome: Not Applicable Review of Systems - Review Of Systems Constitutional: Reports: No symptoms Eyes: Reports: No symptoms Ears, Nose, Mouth, Throat: Reports: No symptoms Respiratory: Reports: No symptoms Cardiac: Reports: No symptoms GI: Reports: No symptoms : Reports: Flank pain Musculoskeletal: Reports: Back pain Skin: Reports: No symptoms Neurological: Reports: No symptoms Endocrine: Reports: No symptoms Hematologic/Lymphatic: Reports: No symptoms All Other Systems: Reviewed and Negative Past Medical History - Past Medical History Previously Healthy: Yes Endocrine: Reports: None Cardiovascular: Reports: Hypertension Respiratory: Reports: COPD, Asthma Hematological: Reports: None Gastrointestinal: Reports: GERD, Liver (HEPATITIS C), Other (chronic abd pain) Genitourinary: Reports: None Neuro/Psych: Reports: Migraine, Anxiety, Depression, Bipolar Disorder Musculoskeletal: Reports: Arthritis, Back Pain (OSTEOSPONDILITS, DDD ), Joint Pain (knee) Cancer: Reports: Other (uterine cancer) Last Menstrual Period: HSYTERECTOMY Other Pertinent Past Medical History: tylox, topimax, norco, tylenol migraine meds at home - Surgical History General Surgical History: Reports: Hysterectomy, Tubal ligation, Cholecystectomy , Tonsillectomy, Orthopedic (ARM AND HAND SURGERY) - Family History Family History: Reports: Unknown - Social History Smoking Status: Current every day smoker, Light tobacco smoker, Vaping Hx Substance Use: No Alcohol Screening: None - Immunizations Tetanus Shot up to Date: Yes Physical Exam - Physical Exam Appearance: Obese Pain Distress: Moderate Neck: Supple Respiratory: Airway patent, Breath sounds clear, Breath sounds equal, Respirations nonlabored Cardiovascular: RRR, Pulses normal, No rub, No murmur GI/: Soft, Nontender, No masses, Bowel sounds normal, No Organomegaly Musculoskeletal: Normal strength, ROM intact, No edema, No calf tenderness Skin: Warm, Dry, Normal color Neurological: Alert, Oriented Psychiatric: Anxious Critical Care Note - Critical Care Note Total Time (mins): 0 Course - Course Hematology/Chemistry: 12/10/17 09:15 Orders, Labs, Meds: Lab Review 12/10/17 09:15 WBC 8.89 RBC 3.91 L Hgb 13.1 Hct 38.1 MCV 97.4 MCH 33.5 H MCHC 34.4 RDW Coeff of Miguel 13.5 Plt Count 183 Immature Gran % (Auto) 0.4 Neut % (Auto) 56.7 Lymph % (Auto) 27.9 [place] % (Auto) 5.5 Eos % (Auto) 9.2 H Baso % (Auto) 0.3 Immature Gran # (Auto) 0.0 Neut # 5.0 Lymph # 2.5 [place] # 0.5 Eos # 0.8 H Baso # 0.0 Orders Category Date Time Status AMYLASE Stat LAB 12/10/17 09:15 Received CBC W/ AUTO DIFF Stat LAB 12/10/17 09:15 Completed COMPREHENSIVE METABOLIC PANEL Stat LAB 12/10/17 09:15 Received LIPASE Stat LAB 12/10/17 09:15 Received URINALYSIS C & S IF INDICATED Stat LAB 12/10/17 09:04 Uncollected Vital Signs: Temp Pulse Resp BP Pulse Ox 12/10/17 08:36 97.2 F L 84 20 116/78 98 Departure - Departure Discharge Problem: Backache Chronic back pain Qualifiers: Back pain location: low back pain Back pain laterality: midline Sciatica presence: without sciatica Qualified Code(s): M54.5 - Low back pain; G89.29 - Other chronic pain; G89.29 - Other chronic pain Instructions: Chronic Back Pain (ED) Allergies/Adverse Reactions: Allergies aspirin Adverse Reaction (Verified 11/30/17 08:49) codeine Adverse Reaction (Verified 11/30/17 08:49) Penicillins Adverse Reaction (Verified 11/30/17 08:49) sumatriptan [From Imitrex] Adverse Reaction (Verified 11/30/17 08:49) "messes with my heart" sumatriptan succinate [From Imitrex] Adverse Reaction (Verified 11/30/17 08:49) "messes with my heart" tramadol [From Ultram] Adverse Reaction (Verified 11/30/17 08:49) Hives patient states she is not actually allergic to this Home Medications: Ambulatory Orders Hydrocodone Bit/Acetaminophen [[place] 5-325] 1 - 2 tab PO Q6HR PRN #7 tablet 04/02 Biotin 10 mcg PO 10,000 daily 11/18/17 Omeprazole 20 mg PO d 11/18/17 Indomethacin [Indocin] 25 mg PO TIDWM PRN 11/30/17 Tizanidine HCl [Zanaflex] 4 mg PO BID 11/30/17
[2017-12-10] MEDS ORDERED: DECADRON 4 MG/ML SDV IM STA (09:32)
--- NOTE | 2017-12-10 09:39 | ED.PDOC ---
General ED Provider: Dr. ROXANE LAZO Chief Complaint: Back Pain Stated Complaint: Patient has a history of back pain and follows up with pain management. She has been to [facility] recently and had an MRI that was negative for Disk infection. She was diagnosed with UTI and started on Macrobid. She has been taking Neurontin, Zanaflex and Ibuprufen she however has taken more of her Hydrocodone and is out early. States she has severe lower back pain. Time Seen by Physician: 08:50 Mode of Arrival: Walk-In Information Source: Patient Exam Limitations: No limitations Primary Care Provider: ALISE MAYO Seen Within Last 72 Hours for Same Complaint By: ED Nursing and Triage Documentation Reviewed and Agree: Yes Reviewed sepsis parameters & appropriate labs ordered?: No System Inflammatory Response Syndrome: Not Applicable Sepsis Protocol: For patient's 13 years and over: Temp is 96.8 and below OR 101 and greater Pulse >90 BPM Resp >20/minute Acutely Altered Mental Status Are patient's symptoms suggestive of a new infection, such as: -Pneumonia -Skin, Soft Tissue -Endocarditis -UTI -Bone, Joint Infection -Implantable Device -Acute Abdominal Infection -Wound Infection -Meningitis -Blood Stream Catheter Infection -Unknown System Inflammatory Response Syndrome: Not Applicable Musculoskeletal Complaint Exam - Back Pain Complaint/Exam Mechanism of Injury: Reports: No known trauma Onset/Duration: 4 days Symptoms Are: Still present Initial Severity: Moderate Current Severity: Severe Location: Reports: Diffuse Character: Reports: Aching, Throbbing Aggravating: Reports: Movements, Bending Associated Signs and Symptoms: Reports: Flank pain. Denies: Swelling, Redness, Bruising, Fever, Weakness, Numbness, Tingling, Abdominal pain, Bladder incontinence, Bowel incontinence, Weight loss, Pain with weight bearing TAD Risk Factors: Reports: None AAA Risk Factors: Reports: None Cauda Equina Risk Factors: Reports: None Epidural Abcess Risk Factors: Reports: None (recent MRI negative done at [facility] ) Focal Tenderness: Yes Paraspinal Muscle Tenderness: Yes Paraspinal Muscle Spasm: Yes Scoliosis: No Lordosis: No Kyphosis: No SLR Test: Right Negative, Left Negative Hip Motion Testing Pain: Right Negative, Left Negative Focal Weakness: Present: None Focal Sensory Loss: Present: None Gait: Present: Normal Back Picture: 1 - tenderness Differential Diagnoses: Herniated Disk, Strain, Sprain Review of Systems - Review Of Systems Constitutional: Reports: No symptoms Eyes: Reports: No symptoms Ears, Nose, Mouth, Throat: Reports: No symptoms Respiratory: Reports: No symptoms Cardiac: Reports: No symptoms GI: Reports: No symptoms : Reports: No symptoms Musculoskeletal: Reports: Back pain Skin: Reports: No symptoms Neurological: Reports: Anxiety Endocrine: Reports: No symptoms Hematologic/Lymphatic: Reports: No symptoms All Other Systems: Reviewed and Negative Past Medical History - Past Medical History Previously Healthy: Yes Endocrine: Reports: None Cardiovascular: Reports: Hypertension Respiratory: Reports: COPD, Asthma Hematological: Reports: None Gastrointestinal: Reports: GERD, Liver (HEPATITIS C), Other (chronic abd pain) Genitourinary: Reports: None Neuro/Psych: Reports: Migraine, Anxiety, Depression, Bipolar Disorder Musculoskeletal: Reports: Arthritis, Back Pain (OSTEOSPONDILITS, DDD ), Joint Pain (knee) Cancer: Reports: Other (uterine cancer) Last Menstrual Period: HSYTERECTOMY Other Pertinent Past Medical History: tylox, topimax, norco, tylenol migraine meds at home - Surgical History General Surgical History: Reports: Hysterectomy, Tubal ligation, Cholecystectomy , Tonsillectomy, Orthopedic (ARM AND HAND SURGERY) - Family History Family History: Reports: Unknown - Social History Smoking Status: Current every day smoker, Light tobacco smoker, Vaping Hx Substance Use: No Alcohol Screening: None - Immunizations Tetanus Shot up to Date: Yes Physical Exam - Physical Exam Appearance: Well-appearing, Obese Pain Distress: Moderate Neck: Supple Respiratory: Airway patent, Breath sounds clear, Breath sounds equal, Respirations nonlabored Cardiovascular: RRR, Pulses normal, No rub, No murmur GI/: Soft Musculoskeletal: Normal strength, ROM intact, No edema, No calf tenderness Skin: Warm Neurological: Alert, Oriented Psychiatric: Depressed Critical Care Note - Critical Care Note Total Time (mins): 0 Course - Course Hematology/Chemistry: 12/10/17 09:15 12/10/17 09:15 Orders, Labs, Meds: Lab Review 12/10/17 12/10/17 12/10/17 09:15 09:15 09:24 WBC 8.89 RBC 3.91 L Hgb 13.1 Hct 38.1 MCV 97.4 MCH 33.5 H MCHC 34.4 RDW Coeff of Miguel 13.5 Plt Count 183 Immature Gran % (Auto) 0.4 Neut % (Auto) 56.7 Lymph % (Auto) 27.9 [place] % (Auto) 5.5 Eos % (Auto) 9.2 H Baso % (Auto) 0.3 Immature Gran # (Auto) 0.0 Neut # 5.0 Lymph # 2.5 [place] # 0.5 Eos # 0.8 H Baso # 0.0 Sodium 141 Potassium 4.4 Chloride 109 H Carbon Dioxide 25 Anion Gap 11.4 BUN 17 Creatinine 0.79 Estimated GFR (MDRD) 80.00 BUN/Creatinine Ratio 21.51 Glucose 91 Calcium 8.9 Total Bilirubin < 0.3 AST 45 H ALT 64 Alkaline Phosphatase 135 H Total Protein 6.8 Albumin 3.0 L Globulin 3.8 Albumin/Globulin Ratio 0.79 Amylase 31 Lipase 32 Urine Color Yellow Urine Clarity Clear Urine pH 6.5 Ur Specific [place] 1.010 Urine Protein Negative Urine Glucose (UA) Negative Urine Ketones Negative Urine Blood Negative Urine Nitrite Negative Urine Bilirubin Negative Urine Urobilinogen 0.2 Ur Leukocyte Esterase Negative Orders Category Date Time Status AMYLASE Stat LAB 12/10/17 09:15 Completed CBC W/ AUTO DIFF Stat LAB 12/10/17 09:15 Completed COMPREHENSIVE METABOLIC PANEL Stat LAB 12/10/17 09:15 Completed LIPASE Stat LAB 12/10/17 09:15 Completed URINALYSIS C & S IF INDICATED Stat LAB 12/10/17 09:24 Completed Dexamethasone 4 mg/ml Inj [Decadron 4 mg/ml Sdv] MEDS 12/10/17 09:32 Discontinued 8 mg IM ONCE STA Medications Discontinued Medications Generic Name Dose Route Start Last Admin Trade Name Freq PRN Reason Stop Dose Admin Dexamethasone Sodium Phosphate 8 mg 12/10/17 09:32 12/10/17 09:45 Decadron 4 Mg/Ml Sdv IM 12/10/17 09:33 8 mg ONCE STA Administration Vital Signs: Temp Pulse Resp BP Pulse Ox 12/10/17 08:36 97.2 F L 84 20 116/78 98 Departure - Departure Time of Disposition: 10:15 Disposition: HOME SELF-CARE Discharge Problem: Backache Chronic back pain Qualifiers: Back pain location: low back pain Back pain laterality: midline Sciatica presence: without sciatica Qualified Code(s): M54.5 - Low back pain Instructions: Chronic Back Pain (ED) Condition: Stable Pt referred to PMD for follow-up: Yes IPMP verified?: No Additional Instructions: Follow up with Pain management Take Medrol dose pack as prescribed. Prescriptions: Methylprednisolone [Medrol Dosepak] 4 mg PO DIRECTED #1 pkg Allergies/Adverse Reactions: Allergies aspirin Adverse Reaction (Verified 11/30/17 08:49) codeine Adverse Reaction (Verified 11/30/17 08:49) Penicillins Adverse Reaction (Verified 11/30/17 08:49) sumatriptan [From Imitrex] Adverse Reaction (Verified 11/30/17 08:49) "messes with my heart" sumatriptan succinate [From Imitrex] Adverse Reaction (Verified 11/30/17 08:49) "messes with my heart" tramadol [From Ultram] Adverse Reaction (Verified 11/30/17 08:49) Hives patient states she is not actually allergic to this Home Medications: Ambulatory Orders Hydrocodone Bit/Acetaminophen [[place] 5-325] 1 - 2 tab PO Q6HR PRN #7 tablet 04/02 Biotin 10 mcg PO 10,000 daily 11/18/17 Omeprazole 20 mg PO d 11/18/17 Indomethacin [Indocin] 25 mg PO TIDWM PRN 11/30/17 Tizanidine HCl [Zanaflex] 4 mg PO BID 11/30/17 Methylprednisolone [Medrol Dosepak] 4 mg PO DIRECTED #1 pkg 12/10/17 Disposition Discussed With: Patient
== END 2017-12-10 10:00 | disposition home or self-care (01) ==
LOC: ED 08:35
DX: M54.5 Low back pain (principal); G89.29 Other chronic pain; F17.210 Nicotine dependence, cigarettes, uncomplicated; Z79.899 Other long term (current) drug therapy
CPT/HCPCS: 36415; 80053; 81001; 82150; 83690; 85025; 99283

== ENCOUNTER 2018-01-02 09:13 | Emergency (ER) ==
[2018-01-02 09:23] VITALS: BP 115/78; TEMP 98.4; BMI 48.1
[2018-01-02] MEDS ORDERED: PHENERGAN 25 MG/ML VIAL IM STA (10:16)
[2018-01-02] MEDS ORDERED: STADOL IM STA (11:30)
--- NOTE | 2018-01-02 12:29 | ED.PDOC ---
General ED Provider: Dr. LAVINIA SHEFFIELD MD Chief Complaint: Chest Pain Stated Complaint: Migraine Time Seen by Physician: 09:35 Mode of Arrival: Walk-In Information Source: Patient Exam Limitations: No limitations [facility] and T[facility] Documentation Reviewed and Agree: Yes Reviewed sepsis parameters & appropriate labs ordered?: Yes System Inflammatory Response Syndrome: Not Applicable Sepsis Protocol: For patient's 13 years and over: Temp is 96.8 and below OR 101 and greater Pulse >90 BPM Resp >20/minute Acutely Altered Mental Status Are patient's symptoms suggestive of a new infection, such as: -Pneumonia -Skin, Soft Tissue -Endocarditis -UTI -Bone, Joint Infection -Implantable Device -Acute Abdominal Infection -Wound Infection -Meningitis -Blood Stream Catheter Infection -Unknown Neurological Complaint Exam - Headache Complaint/Exam Onset: Gradual Symptoms Are: Still present Timing: Constant Episodes Lasting: Hours Worst Headache Ever: No Initial Severity: Severe Current Severity: Severe Location: Diffuse Character: Reports: Pressure, Migraine Aggravating: Reports: None Alleviating: Reports: None Associated Signs and Symptoms: Reports: Nausea Related History: Reports: Similar episode Related Surgical History: Reports: None SAH Risk Factors: Reports: Smoking, Hypertension Meningitis Risk Factors: Reports: None SDH Risk Factors: Reports: None Temporal Arteritis Risk Factors: Reports: None Normal Head CT Within Last 12 Months: No Fundoscopic Exam: Present: Normal Findings Papilledema Present: No Temporal Artery Tenderness: Present: None Sinus Tenderness: Present: None TMJ Tenderness: Present: None Meningeal Signs Positive: No Pain on Passive Flexion-Positive Kernig's: No ROM Limited In: No Limitiations Focal Weakness: Present: None Focal Sensory Loss: Present: None Gait: Normal Nystagmus Present: No Gag Reflex Present: No [id number]: Normal Findings Babinski Sign: Positive Right, Positive Left Heel to Toe Normal: Yes Review of Systems - Review Of Systems Constitutional: Reports: Other Eyes: Reports: No symptoms Ears, Nose, Mouth, Throat: Reports: No symptoms Respiratory: Reports: No symptoms Cardiac: Reports: No symptoms GI: Reports: No symptoms : Reports: No symptoms Musculoskeletal: Reports: Other Skin: Reports: No symptoms Neurological: Reports: No symptoms Endocrine: Reports: No symptoms Hematologic/Lymphatic: Reports: No symptoms All Other Systems: Reviewed and Negative Past Medical History - Past Medical History Previously Healthy: Yes Endocrine: Reports: None Cardiovascular: Reports: Hypertension Respiratory: Reports: COPD, Asthma Hematological: Reports: None Gastrointestinal: Reports: GERD, Liver (HEPATITIS C), Other (chronic abd pain) Genitourinary: Reports: None Neuro/Psych: Reports: Migraine, Anxiety, Depression, Bipolar Disorder Musculoskeletal: Reports: Arthritis, Back Pain (OSTEOSPONDILITS, DDD ), Joint Pain (knee) Cancer: Reports: Other (uterine cancer) Last Menstrual Period: hysterectomy Other Pertinent Past Medical History: tylox, topimax, norco, tylenol migraine meds at home - Surgical History General Surgical History: Reports: Hysterectomy, Tubal ligation, Cholecystectomy , Tonsillectomy, Orthopedic (ARM AND HAND SURGERY) - Family History Family History: Reports: Unknown - Social History Smoking Status: Current every day smoker, Light tobacco smoker, Vaping Hx Substance Use: No Alcohol Screening: None Physical Exam - Physical Exam Appearance: Well-appearing, Ill-appearing Ill-appearing: Mild Pain Distress: Moderate Eyes: LEONORA, EOMI, Conjunctiva clear ENT: Ears normal, Nose normal, Oropharynx normal Respiratory: Airway patent, Breath sounds clear, Breath sounds equal, Respirations nonlabored Cardiovascular: RRR, Pulses normal, No rub, No murmur GI/: Soft, Nontender, No masses, Bowel sounds normal, No Organomegaly Musculoskeletal: Normal strength, ROM intact, No edema, No calf tenderness Skin: Warm, Dry, Normal color Neurological: Sensation intact, Motor intact, Reflexes intact, Cranial nerves intact, Alert, Oriented Psychiatric: Affect appropriate, Mood appropriate Interpretation - Mobile Product Manager Rate: Normal - EKG Interpretation Rate: Normal Re-Evaluation - Re-Evaluation Time of Re-Evaluation: 02:00 Status: Improved Vital Signs Stable: Yes Pain Level: 2 Appearance: NAD Lungs: Clear Skin: Warm and Dry Neuro: Alert and Oriented X3 CV: RRR Critical Care Note - Critical Care Note Total Time (mins): 0 Course - Course Orders, Labs, Meds: Lab Review 01/02/18 10:18 Urine Opiates Screen Negative Ur Oxycodone Screen Negative Urine Methadone Screen Negative Ur Propoxyphene Screen Negative Ur Barbiturates Screen Negative U Tricyclic Antidepress Positive Ur Phencyclidine Scrn Negative Ur Amphetamine Screen Negative U Methamphetamines Scrn Negative U Benzodiazepines Scrn Negative Urine Cocaine Screen Negative U Cannabinoids Screen Negative Orders Category Date Time Status EKG-(ED ONLY) Stat CARDIO 01/02/18 09:57 Completed URINE DRUG SCREEN (RAPID FOR ED) [DRUG SCREEN, URINE, LAB 01/02/18 10:18 Completed RAPID] Stat Butorphanol Tartrate [Stadol] MEDS 01/02/18 11:30 Discontinued 2 mg IM ONCE STA Promethazine HCl [Phenergan 25 mg/ml Vial] MEDS 01/02/18 10:16 Discontinued 25 mg IM ONCE STA Medications Discontinued Medications Generic Name Dose Route Start Last Admin Trade Name Olvin PRN Reason Stop Dose Admin Butorphanol Tartrate 2 mg 01/02/18 11:30 01/02/18 11:39 Stadol IM 01/02/18 11:31 2 mg ONCE STA Administration Promethazine HCl 25 mg 01/02/18 10:16 01/02/18 10:30 Phenergan 25 Mg/Ml Vial IM 01/02/18 10:17 25 mg ONCE STA Administration Vital Signs: Temp Pulse Resp BP Pulse Ox 01/02/18 09:15 98.4 F 96 H 20 115/78 97 Departure - Departure Time of Disposition: 12:35 Disposition: HOME SELF-CARE Discharge Problem: Migraine aura without headache (migraine equivalents) Instructions: Migraine Headache (ED) Condition: Good Pt referred to PMD for follow-up: Yes IPMP verified?: No Additional Instructions: return if not better in 24 hours, follow up[ with PMD Allergies/Adverse Reactions: Allergies aspirin Adverse Reaction (Verified 01/02/18 09:24) codeine Adverse Reaction (Verified 01/02/18 09:24) Penicillins Adverse Reaction (Verified 01/02/18 09:24) sumatriptan [From Imitrex] Adverse Reaction (Verified 01/02/18 09:24) "messes with my heart" sumatriptan succinate [From Imitrex] Adverse Reaction (Verified 01/02/18 09:24) "messes with my heart" tramadol [From Ultram] Adverse Reaction (Verified 01/02/18 09:24) Hives patient states she is not actually allergic to this Home Medications: Ambulatory Orders Hydrocodone Bit/Acetaminophen [[place] 5-325] 1 - 2 tab PO Q6HR PRN #7 tablet 04/02 Biotin 10 mcg PO 10,000 daily 11/18/17 Omeprazole 20 mg PO d 11/18/17 Tizanidine HCl [Zanaflex] 4 mg PO BID 11/30/17
== END 2018-01-02 12:44 | disposition home or self-care (01) ==
LOC: ED 09:13
DX: G43.109 Migraine with aura, not intractable, without status migrainosus (principal); I10 Essential (primary) hypertension; F17.210 Nicotine dependence, cigarettes, uncomplicated; Z79.899 Other long term (current) drug therapy
CPT/HCPCS: 80306; 93005; 93010; 96372; 99283

== ENCOUNTER 2018-01-19 11:29 | Emergency (ER) ==
[2018-01-19 11:38] VITALS: TEMP 98.8; BMI 46.0
--- NOTE | 2018-01-19 11:49 | ED.PDOC ---
General ED Provider: Dr. LAVINIA MCCAIN Chief Complaint: Headache Stated Complaint: Onset severe migraine headache which has been occuring intermittely for past two day.Under stress -sitting with elderly relative who is ill in the Hospital. Complains of nause.Denies LOC/ DONOHUE localized lt hemicranium. Has pain in both ears with clear drainage Time Seen by Physician: 11:50 Mode of Arrival: Walk-In Information Source: Patient Exam Limitations: No limitations [facility] and Triage Documentation Reviewed and Agree: Yes Reviewed sepsis parameters & appropriate labs ordered?: Yes System Inflammatory Response Syndrome: Not Applicable Sepsis Protocol: For patient's 13 years and over: Temp is 96.8 and below OR 101 and greater Pulse >90 BPM Resp >20/minute Acutely Altered Mental Status Are patient's symptoms suggestive of a new infection, such as: -Pneumonia -Skin, Soft Tissue -Endocarditis -UTI -Bone, Joint Infection -Implantable Device -Acute Abdominal Infection -Wound Infection -Meningitis -Blood Stream Catheter Infection -Unknown System Inflammatory Response Syndrome: Not Applicable Neurological Complaint Exam - Headache Complaint/Exam Onset: Gradual Symptoms Are: Still present Timing: Constant Episodes Lasting: Hours Worst Headache Ever: No Initial Severity: Severe Current Severity: Moderate Location: Left, Frontal, Temporal, Parietal Character: Reports: Dull, Throbbing Aggravating: Reports: None Alleviating: Reports: None Associated Signs and Symptoms: Reports: Dizziness, Nausea Related History: Reports: Similar episode Review of Systems - Review Of Systems Constitutional: Reports: No symptoms Eyes: Reports: No symptoms Ears, Nose, Mouth, Throat: Reports: No symptoms Respiratory: Reports: No symptoms Cardiac: Reports: No symptoms GI: Reports: No symptoms : Reports: No symptoms Musculoskeletal: Reports: No symptoms Skin: Reports: Dryness, Other (eczema) Neurological: Reports: Anxiety, Other (headache) Endocrine: Reports: No symptoms Hematologic/Lymphatic: Reports: No symptoms All Other Systems: Reviewed and Negative Past Medical History - Past Medical History Previously Healthy: Yes Endocrine: Reports: None Cardiovascular: Reports: Hypertension Respiratory: Reports: COPD, Asthma Hematological: Reports: None Gastrointestinal: Reports: GERD, Liver (HEPATITIS C), Other (chronic abd pain) Genitourinary: Reports: None Neuro/Psych: Reports: Migraine, Anxiety, Depression, Bipolar Disorder Musculoskeletal: Reports: Arthritis, Back Pain (OSTEOSPONDILITS, DDD ), Joint Pain (knee) Cancer: Reports: Other (uterine cancer) Last Menstrual Period: na Other Pertinent Past Medical History: tylox, topimax, norco, tylenol migraine meds at home - Surgical History General Surgical History: Reports: Hysterectomy, Tubal ligation, Cholecystectomy , Tonsillectomy, Orthopedic (ARM AND HAND SURGERY) - Family History Family History: Reports: Unknown - Social History Smoking Status: Current some day smoker Hx Substance Use: Yes (Nic) Alcohol Screening: None - Immunizations Tetanus Shot up to Date: Yes Physical Exam - Physical Exam Appearance: Ill-appearing, Obese Ill-appearing: None Pain Distress: Moderate Eyes: LEONORA, EOMI, Conjunctiva clear ENT: Nose normal, Oropharynx normal, TMs Occluded (Lt TM inflamed and bulging/ dull light reflex), Erythema (TM fullness and mild erythrema) Neck: Supple (no nuchal rigidity) Respiratory: Airway patent, Breath sounds clear, Breath sounds equal, Respirations nonlabored Cardiovascular: RRR, Pulses normal, No rub, No murmur GI/: Soft, Nontender, No masses, Bowel sounds normal, No Organomegaly Musculoskeletal: Normal strength (Tenderness in posterior cervical paraspinous musculature in bioccipital region Lt>Rt), ROM intact, No edema, No calf tenderness Skin: Warm, Dry, Normal color Neurological: Sensation intact, Motor intact, Reflexes intact, Cranial nerves intact, Alert, Oriented Psychiatric: Affect appropriate, Mood appropriate Re-Evaluation - Re-Evaluation Time of Re-Evaluation: 13:15 Status: Improved Vital Signs Stable: Yes (BP improved control with reduced pain ) Appearance: NAD Lungs: Clear Skin: Warm and Dry Neuro: Alert and Oriented X3 CV: RRR Critical Care Note - Critical Care Note Total Time (mins): 30 Course - Course Orders, Labs, Meds: Orders Category Date Time Status Vital signs [ED VITAL SIGNS] .ONCE EMERGENCY 01/19/18 11:57 Active Azithromycin [Zithromax] MEDS 01/19/18 13:22 Discontinued 250 mg PO ONCE STA Hydromorphone HCl [Dilaudid 1 mg/ml Syringe] MEDS 01/19/18 11:53 Discontinued 1 mg IM ONCE STA Promethazine HCl [Phenergan 25 mg/ml Vial] MEDS 01/19/18 11:56 Discontinued 25 mg IM ONCE STA Medications Discontinued Medications Generic Name Dose Route Start Last Admin Trade Name Olvin PRN Reason Stop Dose Admin Azithromycin 250 mg 01/19/18 13:22 01/19/18 13:49 Zithromax PO 01/19/18 13:23 Not Given ONCE STA Hydromorphone HCl 1 mg 01/19/18 11:53 01/19/18 12:05 Dilaudid 1 Mg/Ml Syringe IM 01/19/18 11:54 1 mg ONCE STA Administration Promethazine HCl 25 mg 01/19/18 11:56 01/19/18 12:06 Phenergan 25 Mg/Ml Vial IM 01/19/18 11:57 25 mg ONCE STA Administration Vital Signs: Temp Pulse Resp BP Pulse Ox 01/19/18 12:13 98 H 16 129/90 97 01/19/18 11:31 98.8 F 119 H 16 152/112 H 98 Departure - Departure Time of Disposition: 13:45 Disposition: HOME SELF-CARE Discharge Problem: Migraine headache, Otitis Instructions: Migraine Headache (ED), Acute Headache (DC), Hypertension (ED), Serous Otitis Media (ED) Condition: Good Pt referred to PMD for follow-up: Yes IPMP verified?: No Prescriptions: Sulfamethoxazole/Trimethoprim [Bactrim Ds 800/160 mg] 1 tab PO Q12HR #20 tablet Allergies/Adverse Reactions: Allergies aspirin Adverse Reaction (Verified 02/02/18 12:29) codeine Adverse Reaction (Verified 02/02/18 12:29) Penicillins Adverse Reaction (Verified 02/02/18 12:29) sumatriptan [From Imitrex] Adverse Reaction (Verified 02/02/18 12:29) "messes with my heart" sumatriptan succinate [From Imitrex] Adverse Reaction (Verified 02/02/18 12:29) "messes with my heart" tramadol [From Ultram] Adverse Reaction (Verified 02/02/18 12:29) Hives patient states she is not actually allergic to this Home Medications: Ambulatory Orders Hydrocodone Bit/Acetaminophen [[place] 5-325] 1 - 2 tab PO Q6HR PRN #7 tablet 04/02 Omeprazole 20 mg PO d 11/18/17 Tizanidine HCl [Zanaflex] 4 mg PO BID 11/30/17 Sulfamethoxazole/Trimethoprim [Bactrim Ds 800/160 mg] 1 tab PO Q12HR #20 tablet 01/19/18 Butalbital/Aspirin/Caffeine [[place]ior[place] 50-325-40 mg Capsule] 1 each PO Q6-8H PRN #20 capsule 01/24/18 Albuterol Sulfate [Proair Hfa] 2 puff IH ONCE 02/02/18 Chlordiazepoxide HCl 10 mg PO BID PRN 02/02/18 Disposition Discussed With: Patient
[2018-01-19] MEDS ORDERED: DILAUDID 1 MG/ML SYRINGE IM STA (11:53)
[2018-01-19] MEDS ORDERED: PHENERGAN 25 MG/ML VIAL IM STA (11:56)
[2018-01-19 12:14] VITALS: BP 129/90
[2018-01-19] MEDS ORDERED: ZITHROMAX PO STA (13:22)
== END 2018-01-19 13:40 | disposition home or self-care (01) ==
LOC: ED 11:29
DX: G43.909 Migraine, unspecified, not intractable, without status migrainosus (principal); H65.90 Unspecified nonsuppurative otitis media, unspecified ear; I10 Essential (primary) hypertension; F17.210 Nicotine dependence, cigarettes, uncomplicated
CPT/HCPCS: 96372; 99283

== ENCOUNTER 2018-01-23 20:37 | Emergency (ER) | payer OTHER ==
[2018-01-23 20:45] VITALS: BP 152/94; TEMP 98.2; BMI 49.2
[2018-01-23] MEDS ORDERED: DILAUDID 2 MG/ML SYRINGE IM STA (20:52)
[2018-01-23] MEDS ORDERED: PHENERGAN 25 MG/ML VIAL IM STA (20:52)
--- NOTE | 2018-01-23 20:56 | ED.PDOC ---
General ED Provider: Dr. LAVINIA CASTRO-ER Chief Complaint: Headache Stated Complaint: estefany got a migraine rangel Time Seen by Physician: 20:53 Mode of Arrival: Walk-In Information Source: Patient Exam Limitations: No limitations [facility] T[facility] Documentation Reviewed and Agree: Yes Reviewed sepsis parameters & appropriate labs ordered?: Yes System Inflammatory Response Syndrome: Not Applicable Sepsis Protocol: For patient's 13 years and over: Temp is 96.8 and below OR 101 and greater Pulse >90 BPM Resp >20/minute Acutely Altered Mental Status Are patient's symptoms suggestive of a new infection, such as: -Pneumonia -Skin, Soft Tissue -Endocarditis -UTI -Bone, Joint Infection -Implantable Device -Acute Abdominal Infection -Wound Infection -Meningitis -Blood Stream Catheter Infection -Unknown Neurological Complaint Exam - Headache Complaint/Exam Onset: Gradual Duration: several hours Symptoms Are: Still present Timing: Constant Worst Headache Ever: No Initial Severity: Mild Current Severity: Moderate Location: Diffuse Character: Reports: Dull, Throbbing, Typical headache, Migraine Aggravating: Reports: Bright lights Associated Signs and Symptoms: Reports: Nausea. Denies: Dizziness, Seizure, Vomiting, Sinus pressure, Fever, Neck pain, Decreased LOC, Visual changes Related History: Reports: Similar episode. Denies: Recent trauma, Remote trauma SAH Risk Factors: Reports: None Meningitis Risk Factors: Reports: None SDH Risk Factors: Reports: None Temporal Arteritis Risk Factors: Reports: Female, Normal Head CT Within Last 12 Months: Yes Fundoscopic Exam: Present: Normal Findings Papilledema Present: No Temporal Artery Tenderness: Present: None Sinus Tenderness: Present: None TMJ Tenderness: Present: None Glascow Coma Scale (see protocol): 15 Meningeal Signs Positive: No Pain on Passive Flexion-Positive Kernig's: No ROM Limited In: No Limitiations Focal Weakness: Present: None Focal Sensory Loss: Present: None Gait: Normal Nystagmus Present: No Gag Reflex Present: Yes [id number]: Normal Findings Romberg Test Positive: No Babinski Sign: Positive Right Heel to Toe Normal: No Differential Diagnoses: Migraine Review of Systems - Review Of Systems Constitutional: Reports: No symptoms Eyes: Reports: No symptoms Ears, Nose, Mouth, Throat: Reports: No symptoms Respiratory: Reports: No symptoms Cardiac: Reports: No symptoms GI: Reports: Nausea : Reports: No symptoms Musculoskeletal: Reports: No symptoms Skin: Reports: No symptoms Neurological: Reports: Headache Endocrine: Reports: No symptoms Hematologic/Lymphatic: Reports: No symptoms All Other Systems: Reviewed and Negative Past Medical History - Past Medical History Previously Healthy: Yes Endocrine: Reports: None Cardiovascular: Reports: Hypertension Respiratory: Reports: COPD, Asthma Hematological: Reports: None Gastrointestinal: Reports: GERD, Liver (HEPATITIS C), Other (chronic abd pain) Genitourinary: Reports: None Neuro/Psych: Reports: Migraine, Anxiety, Depression, Bipolar Disorder Musculoskeletal: Reports: Arthritis, Back Pain (OSTEOSPONDILITS, DDD ), Joint Pain (knee) Cancer: Reports: Other (uterine cancer) Last Menstrual Period: unknown Other Pertinent Past Medical History: tylox, topimax, norco, tylenol migraine meds at home - Surgical History General Surgical History: Reports: Hysterectomy, Tubal ligation, Cholecystectomy , Tonsillectomy, Orthopedic (ARM AND HAND SURGERY) - Family History Family History: Reports: Unknown - Social History Smoking Status: Current every day smoker, Light tobacco smoker, Vaping Hx Substance Use: No Alcohol Screening: None Lives: With family Physical Exam - Physical Exam Appearance: Well-appearing Pain Distress: Moderate Eyes: LEONORA, EOMI, Conjunctiva clear ENT: Ears normal, Nose normal, Oropharynx normal Neck: Supple Respiratory: Airway patent, Breath sounds clear, Breath sounds equal, Respirations nonlabored Cardiovascular: RRR, Pulses normal, No rub, No murmur GI/: Soft, Nontender, No masses, Bowel sounds normal, No Organomegaly Musculoskeletal: Normal strength, ROM intact, No edema, No calf tenderness Skin: Warm Neurological: Sensation intact Psychiatric: Affect appropriate, Mood appropriate Re-Evaluation - Re-Evaluation Time of Re-Evaluation: 21:30 Status: Improved Vital Signs Stable: Yes Pain Level: 0 Appearance: NAD Lungs: Clear Skin: Warm and Dry Neuro: Alert and Oriented X3 CV: RRR Critical Care Note - Critical Care Note Total Time (mins): 0 Course - Course Orders, Labs, Meds: Orders Category Date Time Status Hydromorphone HCl/Pf [Dilaudid 2 mg/ml Syringe] MEDS 01/23/18 20:52 Discontinued 2 mg IM ONCE STA Promethazine HCl [Phenergan 25 mg/ml Vial] MEDS 01/23/18 20:52 Discontinued 25 mg IM ONCE STA Medications Discontinued Medications Generic Name Dose Route Start Last Admin Trade Name Olvin PRN Reason Stop Dose Admin Hydromorphone HCl 2 mg 01/23/18 20:52 Dilaudid 2 Mg/Ml Syringe IM 01/23/18 20:53 ONCE STA Promethazine HCl 25 mg 01/23/18 20:52 Phenergan 25 Mg/Ml Vial IM 01/23/18 20:53 ONCE STA Vital Signs: Temp Pulse Resp BP Pulse Ox 01/23/18 20:39 98.2 F 113 H 20 152/94 H 95 Departure - Departure Time of Disposition: 20:56 Disposition: HOME SELF-CARE Discharge Problem: Migraine headache Qualifiers: Migraine type: without aura Status migrainosus presence: without status migrainosus Intractability: not intractable Qualified Code(s): G43.009 - Migraine without aura, not intractable, without status migrainosus Instructions: Migraine Headache (ED) Condition: Good Pt referred to PMD for follow-up: Yes IPMP verified?: No Additional Instructions: f/u with pcp Allergies/Adverse Reactions: Allergies aspirin Adverse Reaction (Verified 01/23/18 20:46) codeine Adverse Reaction (Verified 01/23/18 20:46) Penicillins Adverse Reaction (Verified 01/23/18 20:46) sumatriptan [From Imitrex] Adverse Reaction (Verified 01/23/18 20:46) "messes with my heart" sumatriptan succinate [From Imitrex] Adverse Reaction (Verified 01/23/18 20:46) "messes with my heart" tramadol [From Ultram] Adverse Reaction (Verified 01/23/18 20:46) Hives patient states she is not actually allergic to this Home Medications: Ambulatory Orders Hydrocodone Bit/Acetaminophen [[place] 5-325] 1 - 2 tab PO Q6HR PRN #7 tablet 04/02 Biotin 10 mcg PO 10,000 daily 11/18/17 Omeprazole 20 mg PO d 11/18/17 Tizanidine HCl [Zanaflex] 4 mg PO BID 11/30/17 Sulfamethoxazole/Trimethoprim [Bactrim Ds 800/160 mg] 1 tab PO Q12HR #20 tablet 01/19/18 Disposition Discussed With: Patient
== END 2018-01-23 21:15 | disposition home or self-care (01) ==
LOC: ED 20:37
DX: G43.009 Migraine without aura, not intractable, without status migrainosus (principal); F17.210 Nicotine dependence, cigarettes, uncomplicated
CPT/HCPCS: 96372; 99283

== ENCOUNTER 2018-01-24 07:41 | Emergency (ER) | payer OTHER ==
[2018-01-24 07:58] VITALS: TEMP 98.7; BMI 49.5
--- NOTE | 2018-01-24 08:35 | ED.PDOC ---
General ED Provider: Dr. LAVINIA MCCAIN Chief Complaint: Headache Stated Complaint: Headache. States she has experience constant h/a behind both eyes; C/O nausea without emesis. Has cough, nonproductive and has associated SOB. Has persistent left earache and on Bactrtim for this. It still hurts. c/o cough that is non-productive but causing shortness of breath. States continues to remain at aunts bedside currently hospitalized at [facility]. Time Seen by Physician: 08:15 Mode of Arrival: Walk-In Information Source: Patient Exam Limitations: No limitations Primary Care Provider: ALISE MAYO Seen Within Last 72 Hours for Same Complaint By: ED (Treated by myself on 01/[address] Griffin last evening for same problem) Nursing and Triage Documentation Reviewed and Agree: Yes Reviewed sepsis parameters & appropriate labs ordered?: Yes System Inflammatory Response Syndrome: Not Applicable Sepsis Protocol: For patient's 13 years and over: Temp is 96.8 and below OR 101 and greater Pulse >90 BPM Resp >20/minute Acutely Altered Mental Status Are patient's symptoms suggestive of a new infection, such as: -Pneumonia -Skin, Soft Tissue -Endocarditis -UTI -Bone, Joint Infection -Implantable Device -Acute Abdominal Infection -Wound Infection -Meningitis -Blood Stream Catheter Infection -Unknown System Inflammatory Response Syndrome: Not Applicable Review of Systems - Review Of Systems Constitutional: Reports: No symptoms Eyes: Reports: Photophobia. Denies: Blindness, Blurred vision, Vision change, Shadows, Tunnel vision Ears, Nose, Mouth, Throat: Reports: Ear pain (Lt sided). Denies: Ear discharge , Mouth pain Respiratory: Reports: Cough, Wheezing Cardiac: Reports: No symptoms GI: Reports: Nausea. Denies: Abdominal pain, Constipated, Vomiting : Reports: No symptoms Musculoskeletal: Reports: Neck pain (pain basal occiput L>R) Skin: Reports: No symptoms Neurological: Reports: Anxiety, Headache, Tingling. Denies: Depressed, Emotional problems, Cognitive dysfunction, [place] seizures, Tonic-Clonic seizures Endocrine: Reports: No symptoms Hematologic/Lymphatic: Reports: No symptoms All Other Systems: Reviewed and Negative Past Medical History - Past Medical History Previously Healthy: Yes Endocrine: Reports: None Cardiovascular: Reports: Hypertension Respiratory: Reports: COPD, Asthma Hematological: Reports: None Gastrointestinal: Reports: GERD, Liver (HEPATITIS C), Other (chronic abd pain) Genitourinary: Reports: None Neuro/Psych: Reports: Migraine, Anxiety, Depression, Bipolar Disorder Musculoskeletal: Reports: Arthritis, Back Pain (OSTEOSPONDILITS, DDD ), Joint Pain (knee) Cancer: Reports: Other (uterine cancer) Last Menstrual Period: N/A Other Pertinent Past Medical History: tylox, topimax, norco, tylenol migraine meds at home - Surgical History General Surgical History: Reports: Hysterectomy, Tubal ligation, Cholecystectomy , Tonsillectomy, Orthopedic (ARM AND HAND SURGERY) - Family History Family History: Reports: Unknown - Social History Smoking Status: Current every day smoker, Light tobacco smoker Hx Substance Use: No Alcohol Screening: None - Immunizations Tetanus Shot up to Date: Yes Physical Exam - Physical Exam Appearance: Ill-appearing, Obese (sitting with hands over eyes) Ill-appearing: Mild Pain Distress: Moderate Eyes: LEONORA, EOMI, Conjunctiva clear, Right pupil size, Left pupil size (equally reactive to light and accomodation.) ENT: Ears normal, Nose normal, Oropharynx normal Neck: Supple Respiratory: Airway patent, Wheezes Cardiovascular: RRR, Pulses normal, No rub, No murmur GI/: Soft, Nontender, No masses, Bowel sounds normal, No Organomegaly Musculoskeletal: Normal strength, ROM intact, No edema, No calf tenderness Skin: Warm, Dry, Normal color Neurological: Sensation intact, Motor intact, Reflexes intact, Cranial nerves intact, Alert, Oriented, Alert to verbal Psychiatric: Affect appropriate, Mood appropriate (Flattened affect) Interpretation - Radiology Interpretation Radiology Interpretation By: Radiologist Radiology Results: No acute changes Exam Interpreted: CXR Critical Care Note - Critical Care Note Total Time (mins): 0 Course - Course Hematology/Chemistry: 01/24/18 09:05 01/24/18 09:05 Orders, Labs, Meds: Lab Review 01/24/18 01/24/18 09:05 09:05 WBC 8.06 RBC 4.44 Hgb 14.3 Hct 42.4 MCV 95.5 MCH 32.2 H MCHC 33.7 RDW Coeff of Miguel 12.7 Plt Count 223 Immature Gran % (Auto) 0.4 Neut % (Auto) 58.4 Lymph % (Auto) 27.7 [place] % (Auto) 7.3 Eos % (Auto) 5.5 Baso % (Auto) 0.7 Immature Gran # (Auto) 0.0 Neut # (Auto) 4.7 Lymph # (Auto) 2.2 [place] # (Auto) 0.6 Eos # (Auto) 0.4 Baso # (Auto) 0.1 Sodium 142 Potassium 3.8 Chloride 107 Carbon Dioxide 24 Anion Gap 14.8 BUN 13 Creatinine 0.83 Estimated GFR (MDRD) 76.00 BUN/Creatinine Ratio 15.66 Glucose 92 Calcium 9.2 Total Bilirubin 0.2 AST 44 H ALT 71 Alkaline Phosphatase 153 H Total Protein 7.9 Albumin 3.4 Globulin 4.5 Albumin/Globulin Ratio 0.76 Orders Category Date Time Status IV [ED IV/MEDIPORT/POWERPORT] .ONCE EMERGENCY 01/24/18 08:55 Active CBC W/ AUTO DIFF Stat LAB 01/24/18 09:05 Completed CMP [COMPREHENSIVE METABOLIC PANEL] Stat LAB 01/24/18 09:05 Completed 0.9 % Sodium Chloride [Saline Flush] MEDS 01/24/18 08:55 Active 1 syr IVF PRN PRN Butalb/Acetaminophen/Caffeine [Fioricet] MEDS 01/24/18 13:23 Discontinued 1 each PO ONCE STA Dexamethasone 4 mg/ml Inj [Decadron 4 mg/ml Sdv] MEDS 01/24/18 09:06 Discontinued 4 mg IVP ONCE STA Dihydroergotamine Mesylate [Dhe 45] MEDS 01/24/18 10:28 Discontinued 1 mg IVP ONCE STA Famotidine Inj [Pepcid] MEDS 01/24/18 09:05 Discontinued 20 mg IVP ONCE STA Ketorolac Tromethamine [Toradol] MEDS 01/24/18 12:56 Discontinued 30 mg IVP ONCE STA Metoclopramide HCl [Reglan] MEDS 01/24/18 10:27 Discontinued 5 mg IVP ONCE STA Ondansetron HCl/Pf [Zofran 4 mg/2 ml] MEDS 01/24/18 09:04 Discontinued 4 mg IVP ONCE STA Promethazine HCl [Phenergan 25 mg/ml Vial] MEDS 01/24/18 11:37 Discontinued 25 mg .ROUTE .STK-MED ONE Promethazine HCl [Phenergan 25 mg/ml Vial] 25 mg MEDS 01/24/18 11:33 Discontinued 0.9 % Sodium Chloride [Sodium Chloride] 50 ml IV ONCE Sodium Chloride 0.9% [Sodium Chloride] 1,000 ml MEDS 01/24/18 12:02 Active IV 100 mls/hr Sodium Chloride 0.9% [Sodium Chloride] 1,000 ml MEDS 01/24/18 08:55 Discontinued IV BOLUS Sodium Chloride 0.9% [Sodium Chloride] 500 ml MEDS 01/24/18 12:00 Active IV 100 mls/hr CHEST, 2 VIEWS PA & LAT Stat RADS 01/24/18 09:01 Completed Medications Generic Name Dose Route Start Last Admin Trade Name Freq PRN Reason Stop Dose Admin Sodium Chloride 500 mls @ 100 mls/hr 01/24/18 12:00 01/24/18 12:06 Sodium Chloride IV 01/24/18 16:59 Not Given .Q5H STA Sodium Chloride 1,000 mls @ 100 mls/hr 01/24/18 12:02 01/24/18 11:44 Sodium Chloride IV 01/24/18 22:01 100 mls/hr .Q10H STA Administration Sodium Chloride 1 syr 01/24/18 08:55 01/24/18 13:04 Saline Flush IVF 1 syr PRN PRN Administration To flush IV Discontinued Medications Generic Name Dose Route Start Last Admin Trade Name Freq PRN Reason Stop Dose Admin Acetaminophen/Butalbital/Caffeine 1 each 01/24/18 13:23 01/24/18 13:35 Fioricet PO 01/24/18 13:24 1 each ONCE STA Administration Dexamethasone Sodium Phosphate 4 mg 01/24/18 09:06 01/24/18 09:43 Decadron 4 Mg/Ml Sdv IVP 01/24/18 09:07 4 mg ONCE STA Administration Dihydroergotamine Mesylate 1 mg 01/24/18 10:28 01/24/18 10:55 Dhe 45 IVP 01/24/18 10:29 1 mg ONCE STA Administration Famotidine 20 mg 01/24/18 09:05 01/24/18 09:37 Pepcid IVP 01/24/18 09:06 20 mg ONCE STA Administration Sodium Chloride 1,000 mls @ 500 mls/hr 01/24/18 08:55 01/24/18 09:32 Sodium Chloride IV 01/24/18 10:54 500 mls/hr BOLUS STA Administration Promethazine HCl 25 mg/ Sodium 51 mls @ 75 mls/hr 01/24/18 11:33 01/24/18 11: 44 Chloride IV 01/24/18 12:13 75 mls/hr ONCE STA Administration Ketorolac Tromethamine 30 mg 01/24/18 12:56 01/24/18 13:03 Toradol IVP 01/24/18 12:57 30 mg ONCE STA Administration Metoclopramide HCl 5 mg 01/24/18 10:27 01/24/18 10:33 Reglan IVP 01/24/18 10:28 5 mg ONCE STA Administration Ondansetron HCl 4 mg 01/24/18 09:04 01/24/18 09:32 Zofran 4 Mg/2 Ml IVP 01/24/18 09:05 4 mg ONCE STA Administration Vital Signs: Temp Pulse Resp BP Pulse Ox 01/24/18 13:38 87 17 121/72 97 01/24/18 07:51 98.7 F 121 H 20 150/93 H 98 Departure - Departure Time of Disposition: 16:20 Disposition: HOME SELF-CARE Discharge Problem: Migraine, Headache Instructions: Migraine Headache (ED), Tension Headache (ED) Condition: Good Pt referred to PMD for follow-up: Yes ([address] Duque for evaluation of your headache) IPMP verified?: No Allergies/Adverse Reactions: Allergies aspirin Adverse Reaction (Verified 01/23/18 20:46) codeine Adverse Reaction (Verified 01/23/18 20:46) Penicillins Adverse Reaction (Verified 01/23/18 20:46) sumatriptan [From Imitrex] Adverse Reaction (Verified 01/23/18 20:46) "messes with my heart" sumatriptan succinate [From Imitrex] Adverse Reaction (Verified 01/23/18 20:46) "messes with my heart" tramadol [From Ultram] Adverse Reaction (Verified 01/23/18 20:46) Hives patient states she is not actually allergic to this Home Medications: Ambulatory Orders Hydrocodone Bit/Acetaminophen [[place] 5-325] 1 - 2 tab PO Q6HR PRN #7 tablet 04/02 Biotin 10 mcg PO 10,000 daily 11/18/17 Omeprazole 20 mg PO d 11/18/17 Tizanidine HCl [Zanaflex] 4 mg PO BID 11/30/17 Sulfamethoxazole/Trimethoprim [Bactrim Ds 800/160 mg] 1 tab PO Q12HR #20 tablet 01/19/18 Butalbital/Aspirin/Caffeine [Fiorinal 50-325-40 mg Capsule] 1 each PO Q6-8H PRN #20 capsule 01/24/18 Disposition Discussed With: Patient Additional Comments Additional Comments: After assessment , Patient treated with a series of meds which gradually allowed for resolution of her cephalgia which had been persistent for past several days. Explained to patient opiates were not indicated for treatment of migraine headache. Patient concurred
[2018-01-24] MEDS ORDERED: SODIUM CHLORIDE 1,000 ML IV STA ×2 (08:55→12:02)
[2018-01-24] MEDS ORDERED: ZOFRAN 4 MG/2 ML IVP STA (09:04)
[2018-01-24] MEDS ORDERED: PEPCID IVP STA (09:05)
[2018-01-24] MEDS ORDERED: DECADRON 4 MG/ML SDV IVP STA (09:06)
--- NOTE | 2018-01-24 09:36 | DI ---
EXAM: CHEST FRONTAL AND LATERAL VIEWS HISTORY: Nonproductive cough, smoker. COMPARISON: 09/21/2017 FINDINGS: Heart size and mediastinal contour remain within normal limits. No acute infiltrates. Normal vascularity with no pleural fluid or pneumothorax. The bony thorax has no acute finding. IMPRESSION: No acute process.
[2018-01-24] MEDS ORDERED: REGLAN IVP STA (10:27)
[2018-01-24] MEDS ORDERED: DHE 45 IVP STA (10:28)
[2018-01-24] MEDS ORDERED: PHENERGAN 25 MG/ML VIAL 25 MG in SODIUM CHLORIDE 50 ML IV STA (11:33)
[2018-01-24] MEDS ORDERED: PHENERGAN 25 MG/ML VIAL ONE (11:37)
[2018-01-24] MEDS ORDERED: SODIUM CHLORIDE 500 ML IV STA (12:00)
[2018-01-24] MEDS ORDERED: TORADOL IVP STA (12:56)
[2018-01-24] MEDS ORDERED: FIORICET PO STA (13:23)
[2018-01-24 13:38] VITALS: BP 121/72
== END 2018-01-24 16:43 | disposition home or self-care (01) ==
LOC: ED 07:41
DX: G43.909 Migraine, unspecified, not intractable, without status migrainosus (principal); R05 Cough; R06.02 Shortness of breath; R06.2 Wheezing; I10 Essential (primary) hypertension; J44.9 Chronic obstructive pulmonary disease, unspecified; H92.02 Otalgia, left ear; F17.210 Nicotine dependence, cigarettes, uncomplicated; Z85.42 Personal history of malignant neoplasm of other parts of uterus
CPT/HCPCS: 36415; 80053; 85025; 96361; 96365; 96375; 99283

== ENCOUNTER 2018-02-02 12:28 | Emergency (ER) | payer OTHER ==
[2018-02-02 12:34] VITALS: BP 152/85; TEMP 99.9; BMI 46.7
--- NOTE | 2018-02-02 13:54 | ED.PDOC ---
General ED Provider: Dr. LAVINIA MCCAIN Chief Complaint: Headache Stated Complaint: Severe headache, dizziness and ear aching rt>lt with ear drainage. Still living in stressful situation living with her Aunt and cousins , one a drug addict who she believes takes her meds. Is from [place], [place] and her came here to help take care of her aunt Time Seen by Physician: 12:50 Mode of Arrival: Wheelchair Information Source: Patient Exam Limitations: No limitations [facility] Nursing and Triage Documentation Reviewed and Agree: Yes Reviewed sepsis parameters & appropriate labs ordered?: Yes System Inflammatory Response Syndrome: Not Applicable Sepsis Protocol: For patient's 13 years and over: Temp is 96.8 and below OR 101 and greater Pulse >90 BPM Resp >20/minute Acutely Altered Mental Status Are patient's symptoms suggestive of a new infection, such as: -Pneumonia -Skin, Soft Tissue -Endocarditis -UTI -Bone, Joint Infection -Implantable Device -Acute Abdominal Infection -Wound Infection -Meningitis -Blood Stream Catheter Infection -Unknown System Inflammatory Response Syndrome: Not Applicable Review of Systems - Review Of Systems Constitutional: Reports: No symptoms Eyes: Reports: No symptoms Ears, Nose, Mouth, Throat: Reports: No symptoms Respiratory: Reports: No symptoms Cardiac: Reports: No symptoms GI: Reports: No symptoms : Reports: No symptoms Musculoskeletal: Reports: No symptoms Skin: Reports: No symptoms Neurological: Reports: No symptoms, Headache Endocrine: Reports: No symptoms Hematologic/Lymphatic: Reports: No symptoms All Other Systems: Reviewed and Negative Past Medical History - Past Medical History Previously Healthy: Yes Endocrine: Reports: None Cardiovascular: Reports: Hypertension Respiratory: Reports: COPD, Asthma Hematological: Reports: None Gastrointestinal: Reports: GERD, Liver (HEPATITIS C), Other (chronic abd pain) Genitourinary: Reports: None Neuro/Psych: Reports: Migraine, Anxiety, Depression, Bipolar Disorder Musculoskeletal: Reports: Arthritis, Back Pain (OSTEOSPONDILITS, DDD ), Joint Pain (knee) Cancer: Reports: Other (uterine cancer) Last Menstrual Period: NA Other Pertinent Past Medical History: tylox, topimax, norco, tylenol migraine meds at home - Surgical History General Surgical History: Reports: Hysterectomy, Tubal ligation, Cholecystectomy , Tonsillectomy, Orthopedic (ARM AND HAND SURGERY) - Family History Family History: Reports: Unknown - Social History Smoking Status: Current every day smoker, Light tobacco smoker, Vaping Hx Substance Use: No Alcohol Screening: None Physical Exam - Physical Exam Appearance: Well-appearing, No pain distress, Well-nourished Ill-appearing: None Pain Distress: None Eyes: LEONORA, EOMI, Conjunctiva clear ENT: Ears normal, Nose normal, Oropharynx normal Respiratory: Airway patent, Breath sounds clear, Breath sounds equal, Respirations nonlabored Cardiovascular: RRR, Pulses normal, No rub, No murmur GI/: Soft, Nontender, No masses, Bowel sounds normal, No Organomegaly Musculoskeletal: Normal strength, ROM intact, No edema, No calf tenderness Skin: Warm, Dry, Normal color Neurological: Sensation intact, Motor intact, Reflexes intact, Cranial nerves intact, Alert, Oriented Psychiatric: Affect appropriate, Mood appropriate Critical Care Note - Critical Care Note Total Time (mins): 60 Course - Course Hematology/Chemistry: 02/02/18 14:35 Orders, Labs, Meds: Lab Review 02/02/18 02/02/18 02/02/18 14:35 14:35 16:55 WBC 12.97 H RBC 4.82 Hgb 15.6 Hct 45.7 MCV 94.8 MCH 32.4 H MCHC 34.1 RDW Coeff of [place] 12.5 Plt Count 252 Immature Gran % (Auto) 0.5 Neut % (Auto) 69.7 Lymph % (Auto) 21.4 [place] % (Auto) 5.9 Eos % (Auto) 2.2 Baso % (Auto) 0.3 Immature Gran # (Auto) 0.1 Neut # (Auto) 9.1 H Lymph # (Auto) 2.8 [place] # (Auto) 0.8 Eos # (Auto) 0.3 Baso # (Auto) 0.0 Magnesium 2.0 Urine Color Yellow Urine Clarity Slightly Urine pH 5.5 Ur Specific [place] 1.020 Urine Protein Negative Urine Glucose (UA) Negative Urine Ketones Negative Urine Blood Negative Urine Nitrite Negative Urine Bilirubin Negative Urine Urobilinogen 0.2 Ur Leukocyte Esterase Negative Orders Category Date Time Status IV [ED IV/MEDIPORT/POWERPORT] .ONCE EMERGENCY 02/02/18 13:55 Active CBC W/ AUTO DIFF Stat LAB 02/02/18 14:35 Completed MAGNESIUM Stat LAB 02/02/18 14:35 Completed UA [URINALYSIS C & S IF INDICATED] Stat LAB 02/02/18 16:55 Completed 0.9 % Sodium Chloride [Saline Flush] MEDS 02/02/18 13:55 Active 1 syr IVF PRN PRN Butalb/Acetaminophen/Caffeine [Fioricet] MEDS 02/02/18 16:21 Discontinued 1 each PO ONCE STA Dexamethasone 4 mg/ml Inj [Decadron 4 mg/ml Sdv] MEDS 02/02/18 16:28 Discontinued 4 mg IVP ONCE STA Dihydroergotamine Mesylate [Dhe 45] MEDS 02/02/18 16:26 Discontinued 1 mg IVP ONCE STA Diphenhydramine Inj [Benadryl] MEDS 02/02/18 14:48 Discontinued 50 mg .ROUTE .STK-MED ONE Diphenhydramine Inj [Benadryl] 50 mg MEDS 02/02/18 13:59 Discontinued 0.9 % Sodium Chloride [Sodium Chloride] 100 ml IV ONCE Famotidine Inj [Pepcid] MEDS 02/02/18 13:59 Discontinued 20 mg IVP ONCE STA Famotidine Inj [Pepcid] MEDS 02/02/18 16:43 Discontinued 20 mg IVP ONCE STA Ketorolac Tromethamine [Toradol] MEDS 02/02/18 14:23 Discontinued 30 mg IVP ONCE STA Ondansetron HCl/Pf [Zofran 4 mg/2 ml] MEDS 02/02/18 13:58 Discontinued 4 mg IVP ONCE STA Sodium Chloride 0.9% [Sodium Chloride] 1,000 ml MEDS 02/02/18 13:55 Discontinued IV BOLUS Medications Generic Name Dose Route Start Last Admin Trade Name Freq PRN Reason Stop Dose Admin Sodium Chloride 1 syr 02/02/18 13:55 02/02/18 14:47 Saline Flush IVF 1 syr PRN PRN Administration To flush IV Discontinued Medications Generic Name Dose Route Start Last Admin Trade Name Freq PRN Reason Stop Dose Admin Acetaminophen/Butalbital/Caffeine 1 each 02/02/18 16:21 02/02/18 16:59 Fioricet PO 02/02/18 16:22 1 each ONCE STA Administration Dexamethasone Sodium Phosphate 4 mg 02/02/18 16:28 02/02/18 17:02 Decadron 4 Mg/Ml Sdv IVP 02/02/18 16:29 4 mg ONCE STA Administration Dihydroergotamine Mesylate 1 mg 02/02/18 16:26 02/02/18 17:05 Dhe 45 IVP 02/02/18 16:27 1 mg ONCE STA Administration Famotidine 20 mg 02/02/18 13:59 02/02/18 15:00 Pepcid IVP 02/02/18 14:00 20 mg ONCE STA Administration Famotidine 20 mg 02/02/18 16:43 02/02/18 17:09 Pepcid IVP 02/02/18 16:44 Not Given ONCE STA Sodium Chloride 1,000 mls @ 500 mls/hr 02/02/18 13:55 02/02/18 14:47 Sodium Chloride IV 02/02/18 15:54 500 mls/hr BOLUS STA Administration Diphenhydramine HCl 50 mg/ 101 mls @ 100 mls/hr 02/02/18 13:59 02/02/18 15:04 Sodium Chloride IV 02/02/18 14:59 100 mls/hr ONCE STA Administration Ketorolac Tromethamine 30 mg 02/02/18 14:23 02/02/18 14:57 Toradol IVP 02/02/18 14:24 30 mg ONCE STA Administration Ondansetron HCl 4 mg 02/02/18 13:58 02/02/18 14:55 Zofran 4 Mg/2 Ml IVP 02/02/18 13:59 4 mg ONCE STA Administration Vital Signs: Temp Pulse Resp BP Pulse Ox 02/02/18 12:30 99.9 F H 133 H 20 152/85 H 95 Departure - Departure Time of Disposition: 18:20 Disposition: HOME SELF-CARE Discharge Problem: Cervical migraine syndrome Instructions: Migraine Headache (ED) Condition: Good Pt referred to PMD for follow-up: Yes IPMP verified?: No Allergies/Adverse Reactions: Allergies aspirin Adverse Reaction (Verified 02/02/18 12:29) codeine Adverse Reaction (Verified 02/02/18 12:29) Penicillins Adverse Reaction (Verified 02/02/18 12:29) sumatriptan [From Imitrex] Adverse Reaction (Verified 02/02/18 12:29) "messes with my heart" sumatriptan succinate [From Imitrex] Adverse Reaction (Verified 02/02/18 12:29) "messes with my heart" tramadol [From [facility]] Adverse Reaction (Verified 02/02/18 12:29) Hives patient states she is not actually allergic to this Home Medications: Ambulatory Orders Hydrocodone Bit/Acetaminophen [[place] 5-325] 1 - 2 tab PO Q6HR PRN #7 tablet 04/02 Omeprazole 20 mg PO d 11/18/17 Tizanidine HCl [Zanaflex] 4 mg PO BID 11/30/17 Sulfamethoxazole/Trimethoprim [Bactrim Ds 800/160 mg] 1 tab PO Q12HR #20 tablet 01/19/18 Butalbital/Aspirin/Caffeine [Fiorinal 50-325-40 mg Capsule] 1 each PO Q6-8H PRN #20 capsule 01/24/18 Albuterol Sulfate [Proair Hfa] 2 puff IH ONCE 02/02/18 Chlordiazepoxide HCl 10 mg PO BID PRN 02/02/18 Disposition Discussed With: Patient (Patient asymptomatic at time of discharge; take meds as directed)
[2018-02-02] MEDS ORDERED: SODIUM CHLORIDE 1,000 ML IV STA (13:55)
[2018-02-02] MEDS ORDERED: ZOFRAN 4 MG/2 ML IVP STA (13:58)
[2018-02-02] MEDS ORDERED: BENADRYL 50 MG in SODIUM CHLORIDE 100 ML IV STA (13:59)
[2018-02-02] MEDS ORDERED: PEPCID IVP STA ×2 (13:59→16:43)
[2018-02-02] MEDS ORDERED: TORADOL IVP STA (14:23)
[2018-02-02] MEDS ORDERED: BENADRYL ONE (14:48)
[2018-02-02] MEDS ORDERED: FIORICET PO STA (16:21)
[2018-02-02] MEDS ORDERED: DHE 45 IVP STA (16:26)
[2018-02-02] MEDS ORDERED: PEPCID 20 MG in SODIUM CHLORIDE 50 ML IV STA (16:27)
[2018-02-02] MEDS ORDERED: DECADRON 4 MG/ML SDV IVP STA (16:28)
== END 2018-02-02 18:50 | disposition home or self-care (01) ==
LOC: ED 12:28
DX: G43.809 Other migraine, not intractable, without status migrainosus (principal); M53.0 Cervicocranial syndrome; F17.210 Nicotine dependence, cigarettes, uncomplicated
CPT/HCPCS: 36415; 81001; 83735; 85025; 96361; 96365; 96366; 96375; 99284

== ENCOUNTER 2018-02-14 13:12 | Emergency (ER) ==
[2018-02-14 13:17] VITALS: TEMP 98.9; BMI 47.9
[2018-02-14] MEDS ORDERED: TORADOL IM STA (13:25)
[2018-02-14] MEDS ORDERED: ZESTRIL PO STA (13:26)
[2018-02-14] MEDS ORDERED: NORFLEX IM STA (13:26)
[2018-02-14] MEDS ORDERED: NORCO 10-325 PO STA (13:27)
[2018-02-14 14:12] VITALS: BP 129/84
--- NOTE | 2018-02-14 15:06 | ED.PDOC ---
General ED Provider: Dr. SOHAM GEIGER Chief Complaint: Headache Stated Complaint: chronic head ache and high blood pressure Time Seen by Physician: 13:30 Mode of Arrival: Walk-In Information Source: Patient Exam Limitations: No limitations [facility] Nursing and Triage Documentation Reviewed and Agree: Yes Reviewed sepsis parameters & appropriate labs ordered?: Yes System Inflammatory Response Syndrome: Not Applicable Sepsis Protocol: For patient's 13 years and over: Temp is 96.8 and below OR 101 and greater Pulse >90 BPM Resp >20/minute Acutely Altered Mental Status Are patient's symptoms suggestive of a new infection, such as: -Pneumonia -Skin, Soft Tissue -Endocarditis -UTI -Bone, Joint Infection -Implantable Device -Acute Abdominal Infection -Wound Infection -Meningitis -Blood Stream Catheter Infection -Unknown System Inflammatory Response Syndrome: Not Applicable Neurological Complaint Exam - Headache Complaint/Exam Onset: Gradual Duration: 1 day out of pain meds Symptoms Are: Still present Timing: Constant Episodes Lasting: Hours Worst Headache Ever: No Initial Severity: Moderate Current Severity: Moderate Location: Frontal, Temporal, Parietal Character: Reports: Throbbing Aggravating: Reports: None Alleviating: Reports: None Associated Signs and Symptoms: Denies: Dizziness, Seizure, Nausea, Vomiting, Sinus pressure, Fever, Neck pain, Neck stiffness, Decreased LOC, Visual changes Related History: Reports: Similar episode Related Surgical History: Reports: None SAH Risk Factors: Reports: None Meningitis Risk Factors: Reports: None SDH Risk Factors: Reports: None Temporal Arteritis Risk Factors: Reports: Female, Normal Head CT Within Last 12 Months: Yes Fundoscopic Exam: Present: Normal Findings Papilledema Present: No Temporal Artery Tenderness: Present: None Sinus Tenderness: Present: None TMJ Tenderness: Present: None Glascow Coma Scale (see protocol): 15 Meningeal Signs Positive: No Pain on Passive Flexion-Positive Kernig's: No ROM Limited In: No Limitiations Focal Weakness: Present: None Focal Sensory Loss: Present: None Gait: Normal Nystagmus Present: No Gag Reflex Present: No [id number]: Normal Findings Babinski Sign: Negative Right, Negative Left Heel to Toe Normal: No Differential Diagnoses: Migraine, Tension Headache Review of Systems - Review Of Systems Constitutional: Reports: No symptoms Eyes: Reports: No symptoms Ears, Nose, Mouth, Throat: Reports: No symptoms Respiratory: Reports: No symptoms Cardiac: Reports: No symptoms GI: Reports: No symptoms : Reports: No symptoms Musculoskeletal: Reports: No symptoms Skin: Reports: No symptoms Neurological: Reports: No symptoms Endocrine: Reports: No symptoms Hematologic/Lymphatic: Reports: No symptoms All Other Systems: Reviewed and Negative Past Medical History - Past Medical History Previously Healthy: Yes Endocrine: Reports: None Cardiovascular: Reports: Hypertension Respiratory: Reports: COPD, Asthma Hematological: Reports: None Gastrointestinal: Reports: GERD, Liver (HEPATITIS C), Other (chronic abd pain) Genitourinary: Reports: None Neuro/Psych: Reports: Migraine, Anxiety, Depression, Bipolar Disorder Musculoskeletal: Reports: Arthritis, Back Pain (OSTEOSPONDILITS, DDD ), Joint Pain (knee) Cancer: Reports: Other (uterine cancer) Last Menstrual Period: hysterectomy Other Pertinent Past Medical History: tylox, topimax, norco, tylenol migraine meds at home - Surgical History General Surgical History: Reports: Hysterectomy, Tubal ligation, Cholecystectomy , Tonsillectomy, Orthopedic (ARM AND HAND SURGERY) - Family History Family History: Reports: Unknown - Social History Smoking Status: Current every day smoker, Light tobacco smoker, Vaping Hx Substance Use: No Alcohol Screening: None Physical Exam - Physical Exam Appearance: Well-appearing, No pain distress, Well-nourished Eyes: LEONORA, EOMI, Conjunctiva clear ENT: Ears normal, Nose normal, Oropharynx normal Respiratory: Airway patent, Breath sounds clear, Breath sounds equal, Respirations nonlabored Cardiovascular: RRR, Pulses normal, No rub, No murmur GI/: Soft, Nontender, No masses, Bowel sounds normal, No Organomegaly Musculoskeletal: Normal strength, ROM intact, No edema, No calf tenderness Skin: Warm, Dry, Normal color Neurological: Sensation intact, Motor intact, Reflexes intact, Cranial nerves intact, Alert, Oriented Psychiatric: Affect appropriate, Mood appropriate Critical Care Note - Critical Care Note Total Time (mins): 0 Course - Course Orders, Labs, Meds: Orders Category Date Time Status EKG-(ED ONLY) Stat CARDIO 02/14/18 14:30 Completed Hydrocodone Bit/Acetaminophen [[place] 10-325] MEDS 02/14/18 13:27 Discontinued 1 tab PO ONCE STA Lisinopril [Zestril] MEDS 02/14/18 13:26 Discontinued 20 mg PO ONCE STA Medications Discontinued Medications Generic Name Dose Route Start Last Admin Trade Name Freq PRN Reason Stop Dose Admin Hydrocodone Bitart/Acetaminophen 1 tab 02/14/18 13:27 02/14/18 13:35 [place] 10-325 PO 02/14/18 13:28 1 tab ONCE STA Administration Lisinopril 20 mg 02/14/18 13:26 02/14/18 13:34 Zestril PO 02/14/18 13:27 20 mg ONCE STA Administration Vital Signs: Temp Pulse Resp BP Pulse Ox 02/14/18 14:12 129/84 02/14/18 13:30 135/100 H 02/14/18 13:12 98.9 F 98 H 20 167/141 H 97 Departure - Departure Time of Disposition: 15:06 (blood pressure is improved ) Disposition: HOME SELF-CARE Discharge Problem: Headache Instructions: Acute Headache (ED), Hypertension (ED) Condition: Good Pt referred to PMD for follow-up: Yes IPMP verified?: No Additional Instructions: Please call your Family Physician as soon as possible to schedule a follow-up appointment. Allergies/Adverse Reactions: Allergies aspirin Adverse Reaction (Verified 02/14/18 13:20) codeine Adverse Reaction (Verified 02/14/18 13:20) Penicillins Adverse Reaction (Verified 02/14/18 13:20) sumatriptan [From Imitrex] Adverse Reaction (Verified 02/14/18 13:20) "messes with my heart" sumatriptan succinate [From Imitrex] Adverse Reaction (Verified 02/14/18 13:20) "messes with my heart" tramadol [From Ultram] Adverse Reaction (Verified 02/14/18 13:20) Hives patient states she is not actually allergic to this Home Medications: Ambulatory Orders Hydrocodone Bit/Acetaminophen [[place] 5-325] 1 - 2 tab PO Q6HR PRN #7 tablet 04/02 Omeprazole 20 mg PO d 11/18/17 Tizanidine HCl [Zanaflex] 4 mg PO BID 11/30/17 Butalbital/Aspirin/Caffeine [Fiorinal 50-325-40 mg Capsule] 1 each PO Q6-8H PRN #20 capsule 01/24/18 Albuterol Sulfate [Proair Hfa] 2 puff IH ONCE 02/02/18 Chlordiazepoxide HCl 10 mg PO BID PRN 02/02/18 Disposition Discussed With: Patient
== END 2018-02-14 15:18 | disposition home or self-care (01) ==
LOC: ED 13:12
DX: R51 Headache (principal); I10 Essential (primary) hypertension; F17.210 Nicotine dependence, cigarettes, uncomplicated; Z79.899 Other long term (current) drug therapy; G43.809 Other migraine, not intractable, without status migrainosus
CPT/HCPCS: 93005; 93010; 96372; 99283

== ENCOUNTER 2018-02-14 21:35 | Emergency (ER) ==
[2018-02-14 21:36] VITALS: BMI 47.9
[2018-02-14 21:47] VITALS: BP 136/91; TEMP 97.9
[2018-02-14] MEDS ORDERED: MORPHINE 4 MG/ML SYRINGE IM STA (22:23)
[2018-02-14] MEDS ORDERED: PHENERGAN 25 MG/ML VIAL IM STA (22:23)
--- NOTE | 2018-02-14 22:26 | ED.PDOC ---
General ED Provider: Dr. LAVINIA CASTRO-ER Chief Complaint: Headache Stated Complaint: estefany got a migraine Time Seen by Physician: 22:24 Mode of Arrival: Walk-In Information Source: Patient Exam Limitations: No limitations [facility] T[facility] Documentation Reviewed and Agree: Yes Reviewed sepsis parameters & appropriate labs ordered?: Yes System Inflammatory Response Syndrome: Not Applicable Sepsis Protocol: For patient's 13 years and over: Temp is 96.8 and below OR 101 and greater Pulse >90 BPM Resp >20/minute Acutely Altered Mental Status Are patient's symptoms suggestive of a new infection, such as: -Pneumonia -Skin, Soft Tissue -Endocarditis -UTI -Bone, Joint Infection -Implantable Device -Acute Abdominal Infection -Wound Infection -Meningitis -Blood Stream Catheter Infection -Unknown Neurological Complaint Exam - Headache Complaint/Exam Onset: Gradual Duration: several hours Symptoms Are: Still present Timing: Constant Worst Headache Ever: No Initial Severity: Mild Location: Diffuse, Left Character: Reports: Dull, Throbbing, Typical headache, Migraine Aggravating: Reports: Bright lights Associated Signs and Symptoms: Reports: Nausea, Vomiting. Denies: Dizziness, Seizure, Sinus pressure, Fever, Neck pain, Neck stiffness Related History: Reports: Similar episode. Denies: Recent trauma, Remote trauma Related Surgical History: Reports: None Temporal Arteritis Risk Factors: Reports: Female Normal Head CT Within Last 12 Months: Yes Fundoscopic Exam: Present: Normal Findings Papilledema Present: No Temporal Artery Tenderness: Present: None Sinus Tenderness: Present: None TMJ Tenderness: Present: None Glascow Coma Scale (see protocol): 15 ROM Limited In: No Limitiations Focal Weakness: Present: None Focal Sensory Loss: Present: None Gait: Normal Nystagmus Present: No Gag Reflex Present: Yes [id number]: Normal Findings Romberg Test Positive: No Babinski Sign: Negative Right, Negative Left Heel to Toe Normal: Yes Differential Diagnoses: Migraine Review of Systems - Review Of Systems Constitutional: Reports: No symptoms Eyes: Reports: No symptoms Ears, Nose, Mouth, Throat: Reports: No symptoms Respiratory: Reports: No symptoms Cardiac: Reports: No symptoms GI: Reports: Nausea, Vomiting : Reports: No symptoms Musculoskeletal: Reports: No symptoms Skin: Reports: No symptoms Neurological: Reports: Headache Endocrine: Reports: No symptoms Hematologic/Lymphatic: Reports: No symptoms All Other Systems: Reviewed and Negative Past Medical History - Past Medical History Previously Healthy: Yes Endocrine: Reports: None Cardiovascular: Reports: Hypertension Respiratory: Reports: COPD, Asthma Hematological: Reports: None Gastrointestinal: Reports: GERD, Liver (HEPATITIS C), Other (chronic abd pain) Genitourinary: Reports: None Neuro/Psych: Reports: Migraine, Anxiety, Depression, Bipolar Disorder Musculoskeletal: Reports: Arthritis, Back Pain (OSTEOSPONDILITS, DDD ), Joint Pain (knee) Cancer: Reports: Other (uterine cancer) Last Menstrual Period: PT HAS HAD A HYSTERECTOMY Other Pertinent Past Medical History: tylox, topimax, norco, tylenol migraine meds at home - Surgical History General Surgical History: Reports: Hysterectomy, Tubal ligation, Cholecystectomy , Tonsillectomy, Orthopedic (ARM AND HAND SURGERY) - Family History Family History: Reports: Unknown - Social History Smoking Status: Current every day smoker, Heavy tobacco smoker, Vaping Hx Substance Use: Yes (OCCASIONALLY SMOKES MARIJUANA) Alcohol Screening: Occasionally - Immunizations Tetanus Shot up to Date: Yes Physical Exam - Physical Exam Appearance: Well-appearing Eyes: LEONORA, EOMI, Conjunctiva clear ENT: Ears normal, Nose normal, Oropharynx normal Neck: Supple Respiratory: Airway patent, Breath sounds clear, Breath sounds equal, Respirations nonlabored Cardiovascular: RRR GI/: Soft Musculoskeletal: Normal strength, ROM intact, No edema, No calf tenderness Skin: Warm, Dry, Normal color Neurological: Sensation intact, Motor intact, Reflexes intact, Cranial nerves intact, Alert, Oriented Psychiatric: Affect appropriate, Mood appropriate, Anxious Critical Care Note - Critical Care Note Total Time (mins): 0 Course - Course Orders, Labs, Meds: Orders Category Date Time Status Morphine Sulfate [Morphine 4 mg/ml Syringe] MEDS 02/14/18 22:23 Discontinued 4 mg IM ONCE STA Promethazine HCl [Phenergan 25 mg/ml Vial] MEDS 02/14/18 22:23 Discontinued 25 mg IM ONCE STA Medications Discontinued Medications Generic Name Dose Route Start Last Admin Trade Name Freq PRN Reason Stop Dose Admin Morphine Sulfate 4 mg 02/14/18 22:23 02/14/18 22:34 Morphine 4 Mg/Ml Syringe IM 02/14/18 22:24 4 mg ONCE STA Administration Promethazine HCl 25 mg 02/14/18 22:23 02/14/18 22:35 Phenergan 25 Mg/Ml Vial IM 02/14/18 22:24 25 mg ONCE STA Administration Vital Signs: Temp Pulse Resp BP Pulse Ox 02/14/18 21:36 97.9 F 77 20 136/91 H 95 Departure - Departure Time of Disposition: 22:56 Disposition: HOME SELF-CARE Discharge Problem: Migraine Qualifiers: Migraine type: other Status migrainosus presence: without status migrainosus Intractability: not intractable Qualified Code(s): G43.809 - Other migraine, not intractable, without status migrainosus Instructions: Migraine Headache (ED) Condition: Good Pt referred to PMD for follow-up: No IPMP verified?: No Additional Instructions: f/u with pcp Allergies/Adverse Reactions: Allergies aspirin Adverse Reaction (Verified 02/14/18 21:41) codeine Adverse Reaction (Verified 02/14/18 21:41) Penicillins Adverse Reaction (Verified 02/14/18 21:41) sumatriptan [From Imitrex] Adverse Reaction (Verified 02/14/18 21:41) "messes with my heart" sumatriptan succinate [From Imitrex] Adverse Reaction (Verified 02/14/18 21:41) "messes with my heart" tramadol [From Ultram] Adverse Reaction (Verified 02/14/18 21:41) Hives patient states she is not actually allergic to this Home Medications: Ambulatory Orders Hydrocodone Bit/Acetaminophen [[place] 5-325] 1 - 2 tab PO Q6HR PRN #7 tablet 04/02 Omeprazole 20 mg PO d 11/18/17 Tizanidine HCl [Zanaflex] 4 mg PO BID 11/30/17 Butalbital/Aspirin/Caffeine [Fiorinal 50-325-40 mg Capsule] 1 each PO Q6-8H PRN #20 capsule 01/24/18 Albuterol Sulfate [Proair Hfa] 2 puff IH ONCE PRN 02/02/18 Chlordiazepoxide HCl 10 mg PO BID PRN 02/02/18 Disposition Discussed With: Patient
== END 2018-02-14 23:00 | disposition home or self-care (01) ==
LOC: ED 21:35
DX: G43.809 Other migraine, not intractable, without status migrainosus (principal); F17.210 Nicotine dependence, cigarettes, uncomplicated
CPT/HCPCS: 96372; 99283

== ENCOUNTER 2018-02-15 06:46 | Emergency (ER) ==
[2018-02-15 06:47] VITALS: BMI 47.9
[2018-02-15 06:55] VITALS: BP 122/86; TEMP 99
[2018-02-15] MEDS ORDERED: ZOFRAN 4 MG/2 ML IVP STA (07:04)
[2018-02-15] MEDS ORDERED: TORADOL IM STA (07:05)
[2018-02-15] MEDS ORDERED: ZOFRAN 4 MG/2 ML IM STA (07:15)
--- NOTE | 2018-02-15 07:52 | CT ---
EXAM: CT head without contrast. HISTORY: Headache. COMPARISON: 09/09/2017. TECHNIQUE: Multiple axial images of the brain were obtained from the skull base through the vertex w ithout intravenous contrast. Multiplanar reformats were provided. FINDINGS: There is no intracranial hemorrhage or extraaxial collection. The clarke-white differentiat ion is maintained without evidence for acute large vascular territory infarction. The cortical sulci and basal cisterns are well visualized. There is no hydrocephalus, mass effect, or midline shift. The paranasal sinuses and mastoid air cells are clear. The calvarium is intact. Since the prior candy dy, there has been no significant interval change. IMPRESSION: No acute intracranial abnormality.
--- NOTE | 2018-02-15 08:00 | ED.PDOC ---
General ED Provider: Dr. SOHAM GEIGER Chief Complaint: Headache Stated Complaint: chronic headache Time Seen by Physician: 07:00 (was seen 1 day ago by pratik for same issue ) Mode of Arrival: Walk-In Information Source: Patient Exam Limitations: No limitations Primary Care Provider: [facility] Nursing and Triage Documentation Reviewed and Agree: Yes (no wood stove or wood burning reported ) Reviewed sepsis parameters & appropriate labs ordered?: Yes System Inflammatory Response Syndrome: Not Applicable Sepsis Protocol: For patient's 13 years and over: Temp is 96.8 and below OR 101 and greater Pulse >90 BPM Resp >20/minute Acutely Altered Mental Status Are patient's symptoms suggestive of a new infection, such as: -Pneumonia -Skin, Soft Tissue -Endocarditis -UTI -Bone, Joint Infection -Implantable Device -Acute Abdominal Infection -Wound Infection -Meningitis -Blood Stream Catheter Infection -Unknown System Inflammatory Response Syndrome: Not Applicable (no injury reported) Neurological Complaint Exam - Headache Complaint/Exam Onset: Gradual Duration: chronic worse past 2 days Symptoms Are: Still present Timing: Intermittent Episodes Lasting: Days Worst Headache Ever: No Initial Severity: Moderate Current Severity: Moderate Location: Frontal, Temporal Character: Reports: Typical headache Aggravating: Reports: None Alleviating: Reports: None Associated Signs and Symptoms: Reports: Nausea. Denies: Dizziness, Seizure, Vomiting, Sinus pressure, Fever, Neck pain, Neck stiffness, Decreased LOC, Visual changes Related History: Reports: Similar episode Related Surgical History: Reports: None SAH Risk Factors: Reports: None Meningitis Risk Factors: Reports: None SDH Risk Factors: Reports: None Temporal Arteritis Risk Factors: Reports: Female, Normal Head CT Within Last 12 Months: Yes Fundoscopic Exam: Present: Normal Findings Papilledema Present: No Temporal Artery Tenderness: Present: None Sinus Tenderness: Present: None TMJ Tenderness: Present: None Glascow Coma Scale (see protocol): 15 Meningeal Signs Positive: No Pain on Passive Flexion-Positive Kernig's: No ROM Limited In: No Limitiations Focal Weakness: Present: None Focal Sensory Loss: Present: None Gait: Normal Nystagmus Present: No Gag Reflex Present: Yes [id number]: Normal Findings Babinski Sign: Negative Right, Negative Left Differential Diagnoses: Migraine Review of Systems - Review Of Systems Constitutional: Reports: No symptoms Eyes: Reports: No symptoms Ears, Nose, Mouth, Throat: Reports: No symptoms Respiratory: Reports: No symptoms Cardiac: Reports: No symptoms GI: Reports: No symptoms : Reports: No symptoms Musculoskeletal: Reports: No symptoms Skin: Reports: No symptoms Neurological: Reports: Headache Endocrine: Reports: No symptoms Hematologic/Lymphatic: Reports: No symptoms All Other Systems: Reviewed and Negative Past Medical History - Past Medical History Previously Healthy: Yes Endocrine: Reports: None Cardiovascular: Reports: Hypertension Respiratory: Reports: COPD, Asthma Hematological: Reports: None Gastrointestinal: Reports: GERD, Liver (HEPATITIS C), Other (chronic abd pain) Genitourinary: Reports: None Neuro/Psych: Reports: Migraine, Anxiety, Depression, Bipolar Disorder Musculoskeletal: Reports: Arthritis, Back Pain (OSTEOSPONDILITS, DDD ), Joint Pain (knee) Cancer: Reports: Other (uterine cancer) Last Menstrual Period: PT HAS HAD A HYSTERECTOMY Other Pertinent Past Medical History: tylox, topimax, norco, tylenol migraine meds at home - Surgical History General Surgical History: Reports: Hysterectomy, Tubal ligation, Cholecystectomy , Tonsillectomy, Orthopedic (ARM AND HAND SURGERY) - Family History Family History: Reports: Unknown - Social History Smoking Status: Current every day smoker, Heavy tobacco smoker, Vaping Hx Substance Use: Yes (OCCASIONALLY SMOKES MARIJUANA) Alcohol Screening: Occasionally - Immunizations Tetanus Shot up to Date: Yes Physical Exam - Physical Exam Appearance: Well-appearing, No pain distress, Well-nourished Eyes: LEONORA, EOMI, Conjunctiva clear ENT: Ears normal, Nose normal, Oropharynx normal Respiratory: Airway patent, Breath sounds clear, Breath sounds equal, Respirations nonlabored Cardiovascular: RRR, Pulses normal, No rub, No murmur GI/: Soft, Nontender, No masses, Bowel sounds normal, No Organomegaly Musculoskeletal: Normal strength, ROM intact, No edema, No calf tenderness Skin: Warm, Dry, Normal color Neurological: Sensation intact, Motor intact, Reflexes intact, Cranial nerves intact, Alert, Oriented Psychiatric: Affect appropriate, Mood appropriate Critical Care Note - Critical Care Note Total Time (mins): 0 Course - Course Hematology/Chemistry: 02/15/18 07:15 02/15/18 07:15 Orders, Labs, Meds: Lab Review 02/15/18 02/15/18 07:15 07:15 WBC 10.80 H RBC 4.53 Hgb 14.6 Hct 44.1 MCV 97.4 MCH 32.2 H MCHC 33.1 RDW Coeff of Miguel 12.6 Plt Count 241 Immature Gran % (Auto) 0.4 Neut % (Auto) 54.9 Lymph % (Auto) 28.3 [place] % (Auto) 7.5 Eos % (Auto) 8.4 H Baso % (Auto) 0.5 Immature Gran # (Auto) 0.0 Neut # (Auto) 5.9 Lymph # (Auto) 3.1 [place] # (Auto) 0.8 Eos # (Auto) 0.9 H Baso # (Auto) 0.1 Sodium 139 Potassium 4.9 Chloride 103 Carbon Dioxide 25 Anion Gap 15.9 BUN 18 Creatinine 0.80 Estimated GFR (MDRD) 79.00 BUN/Creatinine Ratio 22.50 Glucose 114 H Calcium 9.4 Total Bilirubin 0.4 AST 30 ALT 49 Alkaline Phosphatase 120 H Total Protein 7.7 Albumin 3.5 Globulin 4.2 Albumin/Globulin Ratio 0.83 Orders Category Date Time Status BLOOD CULTURE (ED ONLY) Stat LAB 02/15/18 Ordered CBC W/ AUTO DIFF Stat LAB 02/15/18 07:04 Ordered COMPREHENSIVE METABOLIC PANEL Stat LAB 02/15/18 07:04 Ordered Ketorolac Tromethamine [Toradol] MEDS 02/15/18 07:05 Stat 30 mg IM ONCE STA Ondansetron HCl/Pf [Zofran 4 mg/2 ml] MEDS 02/15/18 07:15 Discontinued 4 mg IM ONCE STA CT HEAD W/O CONTRAST Stat RADS 02/15/18 07:04 Ordered Medications Discontinued Medications Generic Name Dose Route Start Last Admin Trade Name Edwardoq PRN Reason Stop Dose Admin Ketorolac Tromethamine 30 mg 02/15/18 07:05 02/15/18 07:33 Toradol IM 02/15/18 07:06 30 mg ONCE STA Administration Ondansetron HCl 4 mg 02/15/18 07:15 02/15/18 07:33 Zofran 4 Mg/2 Ml IM 02/15/18 07:16 4 mg ONCE STA Administration Vital Signs: Temp Pulse Resp BP Pulse Ox 02/15/18 06:48 99 F 87 20 122/86 96 Departure - Departure Time of Disposition: 08:01 Disposition: HOME SELF-CARE Discharge Problem: Headache Instructions: Migraine Headache (ED), Acute Headache (ED) Condition: Good Pt referred to PMD for follow-up: Yes IPMP verified?: No Additional Instructions: Please call your Family Physician as soon as possible to schedule a follow-up appointment. Allergies/Adverse Reactions: Allergies aspirin Adverse Reaction (Verified 02/15/18 06:56) codeine Adverse Reaction (Verified 02/15/18 06:56) Penicillins Adverse Reaction (Verified 02/15/18 06:56) sumatriptan [From Imitrex] Adverse Reaction (Verified 02/15/18 06:56) "messes with my heart" sumatriptan succinate [From Imitrex] Adverse Reaction (Verified 02/15/18 06:56) "messes with my heart" tramadol [From Ultram] Adverse Reaction (Verified 02/15/18 06:56) Hives patient states she is not actually allergic to this Home Medications: Ambulatory Orders Hydrocodone Bit/Acetaminophen [[place] 5-325] 1 - 2 tab PO Q6HR PRN #7 tablet 04/02 Omeprazole 20 mg PO d 11/18/17 Tizanidine HCl [Zanaflex] 4 mg PO BID 11/30/17 Butalbital/Aspirin/Caffeine [Fiorinal 50-325-40 mg Capsule] 1 each PO Q6-8H PRN #20 capsule 01/24/18 Albuterol Sulfate [Proair Hfa] 2 puff IH ONCE PRN 02/02/18 Chlordiazepoxide HCl 10 mg PO BID PRN 02/02/18
== END 2018-02-15 08:15 | disposition home or self-care (01) ==
LOC: ED 06:46
DX: R51 Headache (principal); F17.210 Nicotine dependence, cigarettes, uncomplicated; Z79.899 Other long term (current) drug therapy
CPT/HCPCS: 36415; 80053; 85025; 87040; 96372; 99283

== ENCOUNTER 2018-02-18 00:22 | Outpatient (CLI) | END 2018-02-18 00:23 | disposition short-term general hospital (02) | LOC: AMBL 00:22 | PROVIDERS: ATTEND Family Medicine | DX: N93.9 Abnormal uterine and vaginal bleeding, unspecified (principal); R10.31 Right lower quadrant pain; R10.32 Left lower quadrant pain; G43.909 Migraine, unspecified, not intractable, without status migrainosus; R20.0 Anesthesia of skin; Z90.710 Acquired absence of both cervix and uterus ==

== ENCOUNTER 2018-04-06 13:15 | Emergency (ER) | payer OTHER ==
[2018-04-06 13:19] VITALS: BP 143/89; TEMP 97.7; BMI 46.0
[2018-04-06] MEDS ORDERED: TORADOL IM STA (13:52)
--- NOTE | 2018-04-06 13:52 | ED.PDOC ---
General ED Provider: Dr. LAVINIA MCCAIN Chief Complaint: Headache Stated Complaint: 4 day history of headache. Under much stress; multiple factors. Is in pain mgt for chronic low back pain. Has taken her maintenance meds without relief. Current headache unchanged from typical migraine. Recently returned from [place]; States her . Time Seen by Physician: 13:30 Mode of Arrival: Walk-In Information Source: Patient Exam Limitations: No limitations Primary Care Provider: ALISE MUSANEW [facility] Nursing and Triage Documentation Reviewed and Agree: Yes Reviewed sepsis parameters & appropriate labs ordered?: Yes System Inflammatory Response Syndrome: Not Applicable Sepsis Protocol: For patient's 13 years and over: Temp is 96.8 and below OR 101 and greater Pulse >90 BPM Resp >20/minute Acutely Altered Mental Status Are patient's symptoms suggestive of a new infection, such as: -Pneumonia -Skin, Soft Tissue -Endocarditis -UTI -Bone, Joint Infection -Implantable Device -Acute Abdominal Infection -Wound Infection -Meningitis -Blood Stream Catheter Infection -Unknown Neurological Complaint Exam - Headache Complaint/Exam Onset: Gradual Duration: 4 days Symptoms Are: Still present Timing: Intermittent Episodes Lasting: Hours Worst Headache Ever: No Initial Severity: Moderate Current Severity: Moderate Location: Right, Frontal, Temporal Character: Reports: Sharp, Dull, Pressure Aggravating: Reports: Bright lights Alleviating: Reports: None Associated Signs and Symptoms: Denies: Dizziness, Seizure, Nausea, Vomiting, Sinus pressure, Fever, Neck pain, Neck stiffness, Decreased LOC, Visual changes Related History: Reports: Similar episode Related Surgical History: Reports: None SAH Risk Factors: Reports: Polycystic Kidney Disease Meningitis Risk Factors: Reports: None SDH Risk Factors: Reports: None Temporal Arteritis Risk Factors: Reports: None Normal Head CT Within Last 12 Months: Yes (02/2018) Fundoscopic Exam: Present: Normal Findings Papilledema Present: No Temporal Artery Tenderness: Present: None Sinus Tenderness: Present: None TMJ Tenderness: Present: None Meningeal Signs Positive: No Pain on Passive Flexion-Positive Kernig's: No ROM Limited In: No Limitiations Focal Weakness: Present: None Focal Sensory Loss: Present: None Gait: Normal Nystagmus Present: No Gag Reflex Present: Yes Romberg Test Positive: No Differential Diagnoses: Tension Headache (Migraine DONOHUE) Review of Systems - Review Of Systems Constitutional: Reports: No symptoms Eyes: Reports: No symptoms Ears, Nose, Mouth, Throat: Reports: No symptoms Respiratory: Reports: No symptoms Cardiac: Reports: No symptoms GI: Reports: No symptoms : Reports: No symptoms Musculoskeletal: Reports: No symptoms Skin: Reports: No symptoms Neurological: Reports: No symptoms, Headache Endocrine: Reports: No symptoms Hematologic/Lymphatic: Reports: No symptoms All Other Systems: Reviewed and Negative Past Medical History - Past Medical History Previously Healthy: Yes Endocrine: Reports: None Cardiovascular: Reports: Hypertension Respiratory: Reports: COPD, Asthma Hematological: Reports: None Gastrointestinal: Reports: GERD, Liver (HEPATITIS C), Other (chronic abd pain) Genitourinary: Reports: None Neuro/Psych: Reports: Migraine, Anxiety, Depression, Bipolar Disorder Musculoskeletal: Reports: Arthritis, Back Pain (OSTEOSPONDILITS, DDD ), Joint Pain (knee) Cancer: Reports: Other (uterine cancer) Last Menstrual Period: N/A Other Pertinent Past Medical History: tylox, topimax, norco, tylenol migraine meds at home - Surgical History General Surgical History: Reports: Hysterectomy, Tubal ligation, Cholecystectomy , Tonsillectomy, Orthopedic (ARM AND HAND SURGERY) - Family History Family History: Reports: Unknown - Social History Smoking Status: Current every day smoker, Heavy tobacco smoker, Vaping Hx Substance Use: Yes (OCCASIONALLY SMOKES MARIJUANA) Alcohol Screening: Occasionally - Immunizations Tetanus Shot up to Date: Yes Physical Exam - Physical Exam Appearance: Well-appearing, Well-nourished Ill-appearing: None Pain Distress: Mild Eyes: LEONORA, EOMI, Conjunctiva clear ENT: Ears normal, Nose normal, Oropharynx normal Neck: Supple (neg nuchal rigidity) Respiratory: Airway patent, Breath sounds clear, Breath sounds equal, Respirations nonlabored Cardiovascular: RRR, Pulses normal, No rub, No murmur GI/: Soft, Nontender, No masses, Bowel sounds normal, No Organomegaly Musculoskeletal: Normal strength, ROM intact, No edema, No calf tenderness Skin: Warm, Dry, Normal color Neurological: Sensation intact, Motor intact, Reflexes intact, Cranial nerves intact, Alert, Oriented Psychiatric: Affect appropriate, Mood appropriate Re-Evaluation - Re-Evaluation Time of Re-Evaluation: 20:10 Status: Improved Vital Signs Stable: Yes Appearance: NAD Lungs: Clear Skin: Warm and Dry Neuro: Alert and Oriented X3 CV: RRR Critical Care Note - Critical Care Note Total Time (mins): 0 Course - Course Vital Signs: Temp Pulse Resp BP Pulse Ox 04/06/18 13:16 97.7 F 100 H 18 143/89 H 97 Departure - Departure Time of Disposition: 14:30 Disposition: HOME SELF-CARE Discharge Problem: Migraine Instructions: Acute Headache (ED), Ibuprofen (By mouth) Condition: Good Pt referred to PMD for follow-up: Yes (PCP 1 week ) IPMP verified?: No Additional Instructions: Take meds as directed See PCP next week for additional evaluation Allergies/Adverse Reactions: Allergies aspirin Adverse Reaction (Verified 04/06/18 13:19) codeine Adverse Reaction (Verified 04/06/18 13:19) Penicillins Adverse Reaction (Verified 04/06/18 13:19) sumatriptan [From Imitrex] Adverse Reaction (Verified 04/06/18 13:19) "messes with my heart" sumatriptan succinate [From Imitrex] Adverse Reaction (Verified 04/06/18 13:19) "messes with my heart" tramadol [From Ultram] Adverse Reaction (Verified 04/06/18 13:19) Hives patient states she is not actually allergic to this Home Medications: Ambulatory Orders Tizanidine HCl [Zanaflex] 4 mg PO BID 11/30/17 Albuterol Sulfate [Proair Hfa] 2 puff IH ONCE PRN 02/02/18 Disposition Discussed With: Patient
[2018-04-06] MEDS ORDERED: PHENERGAN 25 MG/ML VIAL IM STA (13:53)
[2018-04-06] MEDS ORDERED: BENADRYL PO STA (13:55)
== END 2018-04-06 14:25 | disposition home or self-care (01) ==
LOC: ED 13:15
DX: G43.909 Migraine, unspecified, not intractable, without status migrainosus (principal); F17.210 Nicotine dependence, cigarettes, uncomplicated
CPT/HCPCS: 96372; 99283

== ENCOUNTER 2018-04-18 20:23 | Emergency (ER) | payer OTHER ==
[2018-04-18 20:24] VITALS: BMI 46.0
[2018-04-18 20:26] VITALS: BP 151/81; TEMP 98.2
[2018-04-18] MEDS ORDERED: BACTRIM DS 800/160 MG PO STA (20:44)
--- NOTE | 2018-04-18 20:47 | ED.PDOC ---
General ED Provider: Dr. ALISE MAYNARD Chief Complaint: Bite Stated Complaint: patient has wounds on the belly and one on the left breast, she think she had spider bites. Time Seen by Physician: 20:45 Mode of Arrival: Walk-In Information Source: Patient Primary Care Provider: ALISE MAYNARD-[facility] Nursing and Triage Documentation Reviewed and Agree: Yes Does patient meet sepsis criteria?: No If yes, has appropriate treatment been initiated?: No System Inflammatory Response Syndrome: Not Applicable Sepsis Protocol: For patient's 13 years and over: Temp is 96.8 and below OR 101 and greater Pulse >90 BPM Resp >20/minute Acutely Altered Mental Status Are patient's symptoms suggestive of a new infection, such as: -Pneumonia -Skin, Soft Tissue -Endocarditis -UTI -Bone, Joint Infection -Implantable Device -Acute Abdominal Infection -Wound Infection -Meningitis -Blood Stream Catheter Infection -Unknown Skin Complaint Exam - Skin/Soft Tissue Complaint/Exam Symptoms Are: Still present Timing: Constant Initial Severity: Mild Current Severity: Mild Character: Reports: Redness, Swelling, Painful Aggravating: Reports: Touch Alleviating: Reports: None Associated Signs and Symptoms: Reports: Drainage, Bruising, Tenderness. Denies : Fever, Chills, Itching, Red streaks, Joint swelling Related Surgical History: Reports: None Recent Exposure to Others w/Similar Symptoms: No Skin Findings: Present: Erythema, Induration. Absent: Fluctuant mass Differential Diagnoses: Cellulitis, Other (spider bite) Review of Systems - Review Of Systems Constitutional: Reports: No symptoms Eyes: Reports: No symptoms Ears, Nose, Mouth, Throat: Reports: No symptoms Respiratory: Reports: No symptoms Cardiac: Reports: No symptoms GI: Reports: No symptoms : Reports: No symptoms Musculoskeletal: Reports: No symptoms Skin: Reports: Lesions Neurological: Reports: No symptoms Endocrine: Reports: No symptoms Hematologic/Lymphatic: Reports: No symptoms All Other Systems: Reviewed and Negative Past Medical History - Past Medical History Previously Healthy: Yes Endocrine: Reports: None Cardiovascular: Reports: Hypertension Respiratory: Reports: COPD, Asthma Hematological: Reports: None Gastrointestinal: Reports: GERD, Liver (HEPATITIS C), Other (chronic abd pain) Genitourinary: Reports: None Neuro/Psych: Reports: Migraine, Anxiety, Depression, Bipolar Disorder Musculoskeletal: Reports: Arthritis, Back Pain (OSTEOSPONDILITS, DDD ), Joint Pain (knee) Cancer: Reports: Other (uterine cancer) Last Menstrual Period: n/a Other Pertinent Past Medical History: tylox, topimax, norco, tylenol migraine meds at home - Surgical History General Surgical History: Reports: Hysterectomy, Tubal ligation, Cholecystectomy , Tonsillectomy, Orthopedic (ARM AND HAND SURGERY) - Family History Family History: Reports: Unknown - Social History Smoking Status: Current every day smoker, Heavy tobacco smoker, Vaping Smoking Cessation Counseling Time: > 10 min Hx Substance Use: Yes (OCCASIONALLY SMOKES MARIJUANA) Alcohol Screening: Occasionally Physical Exam - Physical Exam Appearance: Well-appearing, No pain distress, Well-nourished, Obese Eyes: LEONORA, EOMI, Conjunctiva clear ENT: Ears normal, Nose normal, Oropharynx normal Respiratory: Airway patent, Breath sounds clear, Breath sounds equal, Respirations nonlabored Cardiovascular: RRR, Pulses normal, No rub, No murmur GI/: Soft, Nontender, No masses, Bowel sounds normal, No Organomegaly Musculoskeletal: Normal strength, ROM intact, No edema, No calf tenderness Skin: Warm (1, above umbilicus, 1 cm circular red, tender. 2, below umbilicus 1 cm scabbed.), Dry, Normal color Neurological: Sensation intact, Motor intact, Reflexes intact, Cranial nerves intact, Alert, Oriented Psychiatric: Affect appropriate, Mood appropriate Critical Care Note - Critical Care Note Total Time (mins): 30 Course - Course Orders, Labs, Meds: Orders Category Date Time Status WOUND CULTURE Stat LAB 04/18/18 20:44 Uncollected Sulfamethoxazole/Trimethoprim [Bactrim Ds 800/160 mg] MEDS 04/18/18 20:44 Stat 1 tab PO ONCE STA Vital Signs: Temp Pulse Resp BP Pulse Ox 04/18/18 20:24 98.2 F 115 H 16 151/81 H 96 Departure - Departure Time of Disposition: 20:48 Disposition: HOME SELF-CARE Discharge Problem: Spider bite Qualifiers: Encounter type: initial encounter Injury intent: accidental or unintentional Qualified Code(s): T63.301A - Toxic effect of unspecified spider venom, accidental (unintentional), initial encounter Cellulitis Qualifiers: Site of cellulitis: trunk Site of cellulitis of trunk: abdominal wall Qualified Code(s): L03.311 - Cellulitis of abdominal wall Instructions: Insect Bite or Sting (ED) Condition: Stable Pt referred to PMD for follow-up: Yes IPMP verified?: No Additional Instructions: skin hygiene, Take medication with food Increase Hydration F/u with [facility] Prescriptions: Sulfamethoxazole/Trimethoprim [Bactrim Ds 800/160 mg] 1 tab PO Q12HR #20 tablet Allergies/Adverse Reactions: Allergies aspirin Adverse Reaction (Verified 04/18/18 20:26) codeine Adverse Reaction (Verified 04/18/18 20:26) Penicillins Adverse Reaction (Verified 04/18/18 20:26) sumatriptan [From Imitrex] Adverse Reaction (Verified 04/18/18 20:26) "messes with my heart" sumatriptan succinate [From Imitrex] Adverse Reaction (Verified 04/18/18 20:26) "messes with my heart" tramadol [From Ultram] Adverse Reaction (Verified 04/18/18 20:26) Hives patient states she is not actually allergic to this Home Medications: Ambulatory Orders Tizanidine HCl [Zanaflex] 4 mg PO BID 11/30/17 Albuterol Sulfate [Proair Hfa] 2 puff IH ONCE PRN 02/02/18 Hydrocodone Bit/Acetaminophen [[place] 5-325] 1 tab PO TID 04/18/18 Sulfamethoxazole/Trimethoprim [Bactrim Ds 800/160 mg] 1 tab PO Q12HR #20 tablet 04/18/18 Disposition Discussed With: Patient, Family
== END 2018-04-18 21:06 | disposition home or self-care (01) ==
LOC: ED 20:23
DX: T63.301A Toxic effect of unspecified spider venom, accidental (unintentional), initial encounter (principal); L03.311 Cellulitis of abdominal wall; F17.210 Nicotine dependence, cigarettes, uncomplicated
CPT/HCPCS: 87070; 87186; 99283

== ENCOUNTER 2018-06-17 15:00 | Emergency (ER) | payer OTHER ==
[2018-06-17 15:06] VITALS: BMI 46.1
[2018-06-17] MEDS ORDERED: NORFLEX IM STA (15:36)
[2018-06-17] MEDS ORDERED: NUBAIN IM STA (15:36)
[2018-06-17] MEDS ORDERED: ZOFRAN ODT PO STA (15:38)
--- NOTE | 2018-06-17 15:40 | ED.PDOC ---
General ED Provider: Dr. ROXANE LAZO Chief Complaint: Headache Stated Complaint: patient is a 43 year old female who states she has had migraine headache similar to prior ones that started at midday today. She has taken Fioricet x 2 and Topamax without any relief. she has photophobia. Time Seen by Physician: 15:38 Mode of Arrival: Walk-In Information Source: Patient [facility] and Triage Documentation Reviewed and Agree: Yes Does patient meet sepsis criteria?: No If yes, has appropriate treatment been initiated?: No System Inflammatory Response Syndrome: Not Applicable Sepsis Protocol: For patient's 13 years and over: Temp is 96.8 and below OR 101 and greater Pulse >90 BPM Resp >20/minute Acutely Altered Mental Status Are patient's symptoms suggestive of a new infection, such as: -Pneumonia -Skin, Soft Tissue -Endocarditis -UTI -Bone, Joint Infection -Implantable Device -Acute Abdominal Infection -Wound Infection -Meningitis -Blood Stream Catheter Infection -Unknown Neurological Complaint Exam - Headache Complaint/Exam Onset: Gradual Duration: 3 hours Symptoms Are: Still present Timing: Constant Worst Headache Ever: No Initial Severity: Severe Current Severity: Severe Location: Right, Left, Frontal Character: Reports: Throbbing, Pressure, Migraine Aggravating: Reports: Bright lights Associated Signs and Symptoms: Denies: Dizziness, Seizure, Nausea, Vomiting, Sinus pressure, Fever, Neck pain, Neck stiffness, Decreased LOC, Visual changes Related History: Reports: Similar episode (with prior Migranes. ) Related Surgical History: Reports: None Meningitis Risk Factors: Reports: None SDH Risk Factors: Reports: None Temporal Arteritis Risk Factors: Reports: Female, Normal Head CT Within Last 12 Months: Yes Papilledema Present: No Temporal Artery Tenderness: Present: None Sinus Tenderness: Present: None TMJ Tenderness: Present: None Meningeal Signs Positive: No Pain on Passive Flexion-Positive Kernig's: No Focal Weakness: Present: None Focal Sensory Loss: Present: None Gait: Normal Nystagmus Present: No Gag Reflex Present: Yes [id number]: Normal Findings Differential Diagnoses: Migraine, Tension Headache Review of Systems - Review Of Systems Constitutional: Reports: No symptoms Eyes: Reports: Photophobia Ears, Nose, Mouth, Throat: Reports: No symptoms Respiratory: Reports: No symptoms Cardiac: Reports: No symptoms GI: Reports: Nausea, Poor appetite : Reports: No symptoms Musculoskeletal: Reports: No symptoms Skin: Reports: No symptoms Neurological: Reports: Anxiety, Headache Endocrine: Reports: No symptoms Hematologic/Lymphatic: Reports: No symptoms All Other Systems: Reviewed and Negative Past Medical History - Past Medical History Previously Healthy: Yes Endocrine: Reports: None Cardiovascular: Reports: Hypertension Respiratory: Reports: COPD, Asthma Hematological: Reports: None Gastrointestinal: Reports: GERD, Liver (HEPATITIS C), Other (chronic abd pain) Genitourinary: Reports: None Neuro/Psych: Reports: Migraine, Anxiety, Depression, Bipolar Disorder Musculoskeletal: Reports: Arthritis, Back Pain (OSTEOSPONDILITS, DDD ), Joint Pain (knee) Cancer: Reports: Other (uterine cancer) Last Menstrual Period: na Other Pertinent Past Medical History: tylox, topimax, norco, tylenol migraine meds at home - Surgical History General Surgical History: Reports: Hysterectomy, Tubal ligation, Cholecystectomy , Tonsillectomy, Orthopedic (ARM AND HAND SURGERY) - Family History Family History: Reports: Unknown - Social History Smoking Status: Current some day smoker Hx Substance Use: Yes ([facility]) Alcohol Screening: None - Immunizations Tetanus Shot up to Date: Yes Physical Exam - Physical Exam Appearance: Ill-appearing, Obese Ill-appearing: Moderate Pain Distress: Severe Eyes: LEONORA, EOMI, Conjunctiva clear Neck: Supple Respiratory: Airway patent, Breath sounds clear, Breath sounds equal, Respirations nonlabored Cardiovascular: Tachycardia Musculoskeletal: Normal strength, ROM intact, No edema, No calf tenderness Skin: Warm, Dry, Normal color Neurological: Sensation intact, Motor intact, Reflexes intact, Cranial nerves intact, Alert, Oriented Psychiatric: Anxious Re-Evaluation - Re-Evaluation Time of Re-Evaluation: 16:27 Status: Improved Vital Signs Stable: Yes Pain Level: much better Appearance: NAD Critical Care Note - Critical Care Note Total Time (mins): 0 Course - Course Orders, Labs, Meds: Orders Category Date Time Status Vital signs [ED VITAL SIGNS] .ONCE EMERGENCY 06/17/18 15:38 Active Nalbuphine HCl [Nubain] MEDS 06/17/18 15:36 Discontinued 10 mg IM ONCE STA Ondansetron [Zofran Odt] MEDS 06/17/18 15:38 Discontinued 4 mg PO ONCE STA Orphenadrine Citrate [Norflex] MEDS 06/17/18 15:36 Discontinued 30 mg IM ONCE STA Medications Discontinued Medications Generic Name Dose Route Start Last Admin Trade Name Olvin PRN Reason Stop Dose Admin Nalbuphine HCl 10 mg 06/17/18 15:36 06/17/18 15:46 Nubain IM 06/17/18 15:37 10 mg ONCE STA Administration Ondansetron HCl 4 mg 06/17/18 15:38 06/17/18 15:47 Zofran Odt PO 06/17/18 15:39 4 mg ONCE STA Administration Orphenadrine Citrate 30 mg 06/17/18 15:36 06/17/18 15:46 Norflex IM 06/17/18 15:37 60 mg ONCE STA Administration Vital Signs: Temp Pulse Resp BP Pulse Ox 06/17/18 16:29 97.6 F 112 H 24 119/75 95 06/17/18 15:01 99.9 F H 133 H 16 160/117 H 96 Departure - Departure Time of Disposition: 16:27 Disposition: HOME SELF-CARE Discharge Problem: Classic migraine Qualifiers: Status migrainosus presence: with status migrainosus Intractability: not intractable Qualified Code(s): G43.101 - Migraine with aura, not intractable, with status migrainosus Instructions: Migraine Headache (ED) Condition: Stable Pt referred to PMD for follow-up: Yes IPMP verified?: No Additional Instructions: Continue home medications Follow up with PCP in 3 days Allergies/Adverse Reactions: Allergies aspirin Adverse Reaction (Verified 06/17/18 15:08) codeine Adverse Reaction (Verified 06/17/18 15:08) Penicillins Adverse Reaction (Verified 06/17/18 15:08) sumatriptan [From Imitrex] Adverse Reaction (Verified 06/17/18 15:08) "messes with my heart" sumatriptan succinate [From Imitrex] Adverse Reaction (Verified 06/17/18 15:08) "messes with my heart" tramadol [From Ultram] Adverse Reaction (Verified 06/17/18 15:08) Hives patient states she is not actually allergic to this Home Medications: Ambulatory Orders Tizanidine HCl [Zanaflex] 4 mg PO BID 11/30/17 Albuterol Sulfate [Proair Hfa] 2 puff IH ONCE PRN 02/02/18 Hydrocodone Bit/Acetaminophen [[place] 5-325] 1 tab PO TID 04/18/18
[2018-06-17 16:29] VITALS: BP 119/75; TEMP 97.6
== END 2018-06-17 16:35 | disposition home or self-care (01) ==
LOC: ED 15:00
DX: G43.101 Migraine with aura, not intractable, with status migrainosus (principal); F17.210 Nicotine dependence, cigarettes, uncomplicated
CPT/HCPCS: 96372; 99283

== ENCOUNTER 2018-06-28 15:07 | Inpatient (IN) | payer OTHER ==
[2018-06-28] MEDS ORDERED: DUONEB NEB STA (15:25)
[2018-06-28] MEDS ORDERED: DECADRON 4 MG/ML SDV IM STA (15:26)
[2018-06-28] MEDS ORDERED: ZITHROMAX PO STA (15:26)
[2018-06-28] MEDS ORDERED: TYLENOL PO STA (15:29)
[2018-06-28] MEDS ORDERED: MORPHINE 2 MG/ML SYRINGE IM STA (15:32)
[2018-06-28] MEDS ORDERED: PHENERGAN 25 MG/ML VIAL IM STA (15:33)
--- NOTE | 2018-06-28 16:15 | CT ---
EXAM: CT chest without contrast HISTORY: Cough and shortness of breath COMPARISON: Chest x-ray 06/22/2018 and multiple priors including CT chest 09/08/2017 TECHNIQUE: Serial axial images of the chest were obtained from the lung apices to the upper abdomen without contrast. These were viewed in multiple planes. FINDINGS: The thyroid is normal. The visualized vessels are unremarkable without aneurysm or stenos is. The heart is normal in size without pericardial effusion. There are no pathologically enlarged mediastinal or hilar lymph nodes. There is no pneumothorax or pleural effusion. The airways are patent. There is no consolidation, no dule or mass. There is no abnormal ground-glass. There is scattered degenerative disease of the thoracic spine. The soft tissues in the upper abdomen demonstrate prior cholecystectomy. IMPRESSION: 1. No acute cardiopulmonary process. 2. Prior cholecystectomy.
--- NOTE | 2018-06-28 17:00 | ED.PDOC ---
General ED Provider: Dr. SOHAM GEIGER Chief Complaint: Respiratory Complaint Stated Complaint: cough, congestion, Time Seen by Physician: 15:12 (seen with her nurse at all times ) Mode of Arrival: Walk-In Information Source: Patient Exam Limitations: No limitations Primary Care Provider: ANGLE ABBOTT Nursing and Triage Documentation Reviewed and Agree: Yes Does patient meet sepsis criteria?: Yes If yes, has appropriate treatment been initiated?: No System Inflammatory Response Syndrome: Not Applicable Sepsis Protocol: For patient's 13 years and over: Temp is 96.8 and below OR 101 and greater Pulse >90 BPM Resp >20/minute Acutely Altered Mental Status Are patient's symptoms suggestive of a new infection, such as: -Pneumonia -Skin, Soft Tissue -Endocarditis -UTI -Bone, Joint Infection -Implantable Device -Acute Abdominal Infection -Wound Infection -Meningitis -Blood Stream Catheter Infection -Unknown Respiratory Complaint Exam - Respiratory Complaint/Exam Onset/Duration: was at [facility] d/c a few days ago , cough flu like symp x 3 days Symptoms Are: Still present Timing: Intermittent Initial Severity: Moderate Current Severity: Mild Location: Nose, Throat, Chest Character: Reports: Non-productive cough, Dry cough Aggravating: Reports: URI Alleviating: Reports: Bronchodilators, Spontaneous resolution Associated Signs and Symptoms: Reports: Fever, Chills, Wheezing, URI, Nasal congestion. Denies: Rapid breathing, Dyspnea, Chest pain, Pleuritic chest pain , Hemoptysis, Dizziness, Calf pain, Calf swelling, Edema, Hoarseness, Sinus discomfort, Vomiting, Sore throat, Weight loss, Decreased oral intake, Increased thirst, Increased appetite, Increased urination Related History: Reports: Similar episode History of Healthcare-Acquired Pneumonia: Admit w/in last 30 days Related Surgical History: Reports: None Pulmonary Embolism Risk Factors: None Cardiac Risk Factors: Reports: Hypertension Pseudomonas Risk Factors: Reports: None Tuberculosis Risk Factors: Reports: None Status Asthmaticus Risk Factors: Reports: None Home Oxygen Use: No Recent Stress Test: No Recent Echo/LV Function: No Current Antibiotic Use: No Current Asthma Medication Use: No Respiratory Distress: None Inadequate Respiratory Effort: No Dysphagia Present: No Stridor Present: No JVD Present: No Accessory Muscle Use: No Retractions: Not Present Diminished Breath Sounds: No Sinus Tenderness: None Grunting Respirations: No Kussmaul Respirations: No Differential Diagnoses: Pneumonia, Lower Resp. Infection Non-Traumatic Chest Pain Syncope: EKG Performed Review of Systems - Review Of Systems Constitutional: Reports: Chills, Fever, Malaise Eyes: Reports: No symptoms Ears, Nose, Mouth, Throat: Reports: No symptoms Respiratory: Reports: Cough Cardiac: Reports: No symptoms GI: Reports: No symptoms : Reports: No symptoms Musculoskeletal: Reports: No symptoms Skin: Reports: No symptoms Neurological: Reports: No symptoms Endocrine: Reports: No symptoms Hematologic/Lymphatic: Reports: No symptoms All Other Systems: Reviewed and Negative Past Medical History - Past Medical History Previously Healthy: Yes Endocrine: Reports: None Cardiovascular: Reports: Hypertension Respiratory: Reports: COPD, Asthma Hematological: Reports: None Gastrointestinal: Reports: GERD, Liver (HEPATITIS C), Other (chronic abd pain) Genitourinary: Reports: None Neuro/Psych: Reports: Migraine, Anxiety, Depression, Bipolar Disorder Musculoskeletal: Reports: Arthritis, Back Pain (OSTEOSPONDILITS, DDD ), Joint Pain (knee) Cancer: Reports: Other (uterine cancer) Last Menstrual Period: NA Other Pertinent Past Medical History: tylox, topimax, norco, tylenol migraine meds at home - Surgical History General Surgical History: Reports: Hysterectomy, Tubal ligation, Cholecystectomy , Tonsillectomy, Orthopedic (ARM AND HAND SURGERY) - Family History Family History: Reports: Unknown - Social History Smoking Status: Current every day smoker Hx Substance Use: No Alcohol Screening: None Physical Exam - Physical Exam Appearance: Ill-appearing Ill-appearing: Mild Pain Distress: Mild Eyes: LEONORA, EOMI, Conjunctiva clear ENT: Ears normal, Nose normal, Oropharynx normal Respiratory: Rhonchi Cardiovascular: RRR, Pulses normal, No rub, No murmur GI/: Soft, Nontender, No masses, Bowel sounds normal, No Organomegaly Musculoskeletal: Normal strength, ROM intact, No edema, No calf tenderness Skin: Warm, Dry, Normal color Neurological: Sensation intact, Motor intact, Reflexes intact, Cranial nerves intact, Alert, Oriented Psychiatric: Affect appropriate, Mood appropriate Interpretation - Radiology Interpretation Radiology Interpretation By: Radiologist Radiology Results: No acute changes Exam Interpreted: CT Scan - [employer]er Rate: Tachy Rhythm: Sinus - EKG Interpretation Rate: Tachy Rhythm: Sinus Re-Evaluation - Re-Evaluation Time of Re-Evaluation: 15:50 Status: Improved Vital Signs Stable: Yes Pain Level: 0 Appearance: NAD Lungs: Clear Skin: Warm and Dry Neuro: Alert and Oriented X3 CV: RRR - Re-Evaluation Time of Re-Evaluation: 17:00 Status: Improved Vital Signs Stable: Yes Pain Level: 0 Appearance: NAD Skin: Warm and Dry Neuro: Alert and Oriented X3 CV: RRR Critical Care Note - Critical Care Note Total Time (mins): 0 Course - Course Hematology/Chemistry: 06/28/18 15:42 06/28/18 15:42 Orders, Labs, Meds: Lab Review 06/28/18 06/28/18 06/28/18 15:42 15:42 15:42 WBC 13.80 H RBC 4.86 Hgb 15.2 Hct 45.3 MCV 93.2 MCH 31.3 H MCHC 33.6 RDW Coeff of Miguel 14.1 Plt Count 254 Immature Gran % (Auto) 1.7 Neut % (Auto) 65.8 Lymph % (Auto) 22.9 [place] % (Auto) 6.6 Eos % (Auto) 2.6 Baso % (Auto) 0.4 Immature Gran # (Auto) 0.2 Neut # (Auto) 9.1 H Lymph # (Auto) 3.2 [place] # (Auto) 0.9 Eos # (Auto) 0.4 Baso # (Auto) 0.1 Puncture Site O2 Saturation ABG pH ABG pCO2 ABG pO2 ABG HCO3 ABG Total CO2 ABG Base Excess Rajeev Test FiO2 % Sodium 137.4 Potassium 4.80 Chloride 103.7 Carbon Dioxide 26.4 Anion Gap 12.10 BUN 35.4 H Creatinine 0.97 Estimated GFR (MDRD) 63.00 BUN/Creatinine Ratio 36.49 Glucose 97.8 Lactic Acid 0.98 Calcium 9.50 Total Bilirubin 0.29 AST 57.6 H ALT 54.8 H Alkaline Phosphatase 161.6 H Total Creatine Kinase 346.4 H CK-MB (CK-2) 2.760 H CK-MB (CK-2) % 0.7900 Troponin I < 0.012 Total Protein 8.10 Albumin 4.18 Globulin 3.92 Albumin/Globulin Ratio 1.06 Procalcitonin 06/28/18 06/28/18 15:42 15:58 WBC RBC Hgb Hct MCV MCH MCHC RDW Coeff of Miguel Plt Count Immature Gran % (Auto) Neut % (Auto) Lymph % (Auto) [place] % (Auto) Eos % (Auto) Baso % (Auto) Immature Gran # (Auto) Neut # (Auto) Lymph # (Auto) [place] # (Auto) Eos # (Auto) Baso # (Auto) Puncture Site Rr O2 Saturation 99.0 ABG pH 7.591 H* ABG pCO2 24.5 L ABG pO2 131.0 H ABG HCO3 23.6 ABG Total CO2 24 ABG Base Excess 2 Rajeev Test + FiO2 % 21.0 Sodium Potassium Chloride Carbon Dioxide Anion Gap BUN Creatinine Estimated GFR (MDRD) BUN/Creatinine Ratio Glucose Lactic Acid Calcium Total Bilirubin AST ALT Alkaline Phosphatase Total Creatine Kinase CK-MB (CK-2) CK-MB (CK-2) % Troponin I Total Protein Albumin Globulin Albumin/Globulin Ratio Procalcitonin 0.11 Orders Category Date Time Status ABG DRAW REQUEST Stat CARDIO 06/28/18 15:30 Completed EKG-(ED ONLY) Stat CARDIO 06/28/18 15:28 Completed NEBULIZER TREATMENT Stat CARDIO 06/28/18 15:26 Completed ABG Stat LAB 06/28/18 15:58 Completed BLOOD CULTURE Stat LAB 06/28/18 15:25 Received CBC W/ AUTO DIFF Stat LAB 06/28/18 15:42 Completed COMPREHENSIVE METABOLIC PANEL Stat LAB 06/28/18 15:42 Completed CREATINE KINASE Stat LAB 06/28/18 15:42 Completed LACTIC ACID Stat LAB 06/28/18 15:42 Completed PROCALCITONIN Stat LAB 06/28/18 15:42 Completed TROPONIN I Stat LAB 06/28/18 15:42 Completed URINALYSIS C & S IF INDICATED Stat LAB 06/28/18 16:45 Received Acetaminophen [Tylenol] MEDS 06/28/18 15:29 Discontinued 650 mg PO ONCE STA Azithromycin [Zithromax] MEDS 06/28/18 15:26 Discontinued 1,000 mg PO ONCE STA Dexamethasone 4 mg/ml Inj [Decadron 4 mg/ml Sdv] MEDS 06/28/18 15:26 Discontinued 4 mg IM ONCE STA Ipratropium/Albuterol Neb [Duoneb] MEDS 06/28/18 15:25 Discontinued 1 vial NEB ONCE STA Morphine Sulfate [Morphine 2 mg/ml Syringe] MEDS 06/28/18 15:32 Discontinued 4 mg IM ONCE STA Promethazine HCl [Phenergan 25 mg/ml Vial] MEDS 06/28/18 15:33 Discontinued 25 mg IM ONCE STA CT CHEST W/O CONTRAST Stat RADS 06/28/18 15:25 Completed Medications Discontinued Medications Generic Name Dose Route Start Last Admin Trade Name Olvin PRN Reason Stop Dose Admin Acetaminophen 650 mg 06/28/18 15:29 06/28/18 16:17 Tylenol PO 06/28/18 15:30 650 mg ONCE STA Administration Albuterol/Ipratropium 1 vial 06/28/18 15:25 06/28/18 16:03 Duoneb NEB 06/28/18 15:26 1 vial ONCE STA Administration Azithromycin 1,000 mg 06/28/18 15:26 06/28/18 16:16 Zithromax PO 06/28/18 15:27 1,000 mg ONCE STA Administration Dexamethasone Sodium Phosphate 4 mg 06/28/18 15:26 06/28/18 16:14 Decadron 4 Mg/Ml Sdv IM 06/28/18 15:27 4 mg ONCE STA Administration Morphine Sulfate 4 mg 06/28/18 15:32 06/28/18 16:09 Morphine 2 Mg/Ml Syringe IM 06/28/18 15:33 4 mg ONCE STA Administration Promethazine HCl 25 mg 06/28/18 15:33 06/28/18 16:10 Phenergan 25 Mg/Ml Vial IM 06/28/18 15:34 25 mg ONCE STA Administration Vital Signs: Temp Pulse Resp BP Pulse Ox 06/28/18 16:20 100.4 F H 06/28/18 15:10 101.0 F H 129 H 24 158/99 H 96 Departure - Departure Time of Disposition: 17:02 Disposition: PLACED OBSERVATION Discharge Problem: Bronchitis COPD (chronic obstructive pulmonary disease) Qualifiers: COPD type: unspecified COPD Qualified Code(s): J44.9 - Chronic obstructive pulmonary disease, unspecified Instructions: Acute Bronchitis (ED), Wheezing (ED), How Your Lungs Work (ED), Bronchospasm (ED) Condition: Good Pt referred to PMD for follow-up: Yes IPMP verified?: No Allergies/Adverse Reactions: Allergies aspirin Adverse Reaction (Verified 06/28/18 15:09) codeine Adverse Reaction (Verified 06/28/18 15:09) Penicillins Adverse Reaction (Verified 06/28/18 15:09) sumatriptan [From Imitrex] Adverse Reaction (Verified 06/28/18 15:09) "messes with my heart" sumatriptan succinate [From Imitrex] Adverse Reaction (Verified 06/28/18 15:09) "messes with my heart" tramadol [From Ultram] Adverse Reaction (Verified 06/28/18 15:09) Hives patient states she is not actually allergic to this Home Medications: Ambulatory Orders Tizanidine HCl [Zanaflex] 4 mg PO BID 11/30/17 Albuterol Sulfate [Proair Hfa] 2 puff IH ONCE PRN 02/02/18 Hydrocodone Bit/Acetaminophen [Dillon 5-325] 1 tab PO TID 04/18/18 Doxycycline Hyclate 100 mg PO BID #20 tablet 06/22/18
[2018-06-28] MEDS: DUONEB NEB SCH ×2 (17:45→22:25)
[2018-06-28] MEDS ORDERED: NON-FORMULARY MEDICATION (Zofran Odt 4 MG) PO PRN (18:07)
[2018-06-28] MEDS ORDERED: ROCEPHIN ONE (18:26)
[2018-06-28] MEDS: SODIUM CHLORIDE 1,500 ML IV SCH (18:29)
[2018-06-28] MEDS ORDERED: SODIUM CHLORIDE 1,000 ML IV ONE (18:29)
[2018-06-28] MEDS: ROCEPHIN 1 GM in SODIUM CHLORIDE 50 ML IV SCH (18:29)
[2018-06-28 18:41] VITALS: BMI 48.5
[2018-06-28] MEDS ORDERED: LOPRESSOR ONE (20:16)
[2018-06-28] MEDS ORDERED: REMERON ONE (20:16)
[2018-06-28] MEDS ORDERED: ZANAFLEX ONE (20:17)
[2018-06-28] MEDS: NEURONTIN PO SCH (20:36)
[2018-06-28] MEDS: NORCO 5-325 PO SCH (20:36)
[2018-06-28] MEDS: TORADOL IVP SCH (20:37)
[2018-06-28] MEDS ORDERED: NON-FORMULARY MEDICATION (Tizanidine Hcl [Zanaflex] 4 MG) PO SCH (21:00)
[2018-06-28] MEDS ORDERED: NON-FORMULARY MEDICATION (Zofran Odt 4 MG) PO SCH (21:00)
[2018-06-28] MEDS ORDERED: MIRTAZAPINE 30 MG PO SCH (21:00)
[2018-06-28] MEDS ORDERED: NON-FORMULARY MEDICATION (Metoprolol Tartrate [Metoprolol Tartrate] 100 MG) PO SCH (21:00)
[2018-06-29] MEDS: DUONEB NEB SCH ×4 (04:48→23:01)
[2018-06-29] MEDS ORDERED: SODIUM CHLORIDE 1,000 ML IV ONE (05:10)
[2018-06-29] MEDS: SODIUM CHLORIDE 1,500 ML IV SCH (05:10)
[2018-06-29] MEDS: TORADOL IVP SCH ×3 (06:08→21:32)
[2018-06-29] MEDS ORDERED: ZOFRAN ODT PO PRN (07:35)
[2018-06-29] MEDS ORDERED: SODIUM CHLORIDE 1,000 ML IV SCH ×2 (08:00)
[2018-06-29] MEDS: ZITHROMAX PO SCH (09:00)
[2018-06-29] MEDS ORDERED: MIRTAZAPINE 30 MG PO SCH (09:00)
[2018-06-29] MEDS ORDERED: NON-FORMULARY MEDICATION (Omeprazole [Omeprazole] 20 MG) PO SCH (09:00)
[2018-06-29] MEDS: LOPRESSOR PO SCH ×2 (09:00→17:52)
[2018-06-29] MEDS: PRILOSEC PO SCH (09:01)
[2018-06-29] MEDS: NEURONTIN PO SCH ×3 (09:01→21:34)
[2018-06-29] MEDS: NORCO 5-325 PO SCH ×3 (09:01→21:33)
[2018-06-29] MEDS: ZANAFLEX PO SCH ×2 (09:01→21:34)
[2018-06-29] MEDS: ZESTRIL PO SCH (09:03)
[2018-06-29] MEDS: ROCEPHIN 1 GM in SODIUM CHLORIDE 50 ML IV SCH (09:04)
[2018-06-29] MEDS: SOLU-CORTEF 100 MG IVP SCH ×3 (09:23→21:31)
--- NOTE | 2018-06-29 10:23 | PCM.PROG ---
Attending Provider: ATTENDING PROVIDER: [facility] This patient is seen with Micaela Chan, Nurse Practitioner. DATE OF SERVICE: 06/29/18 SUBJECTIVE: This 43 year old WHITE/ F was hospitalized 06/28/18. The patient is lying in bed, resting comfortably. She had temperature of 101 in ER. She was recently hospitalized, last seen at [facility] in [place] for three days for acute bronchitis. She has been on p.o. Doxycycline and steroids. She has history of smoking. She sees Pain Management, Dr. Joel for back pain. She did report some dysuria this a.m. CT chest normal. UA only slightly abnormal. Describes pain as sharp and stabbing with cough and deep breathing No shortness of breath or sweating. REVIEW OF SYSTEMS: CONSTITUTIONAL: Fever. No night sweats. No fatigue, malaise, lethargy. No chills. HEENT: Eyes: No visual changes. No eye pain. No eye discharge. ENT: No runny nose. No epistaxis. No sinus pain. No odynophagia. No congestion. RESPIRATORY: Cough. No congestion. No hemoptysis. No shortness of breath. CARDIOVASCULAR: No angina symptoms. No CHF symptoms. Pleuritic pain. No palpitations. No orthopnea.. GASTROINTESTINAL: No abdominal pain. No nausea or vomiting. No diarrhea or constipation. No hematemesis. No hematochezia. GENITOURINARY: No urgency. No frequency. No dysuria. No hematuria. No obstructive symptoms. No discharge. No pain. No significant abnormal bleeding. MUSCULOSKELETAL: No musculoskeletal pain; no joint swelling. NEUROLOGICAL: Awake, alert, oriented to time, place and person. No headache. No neck pain. No syncope. No seizures. No dizziness. PSYCHIATRIC: Not anxious. No depression. No suicidal thoughts. No homicidal thoughts. SKIN: No rash. No lesions. No wounds. ENDOCRINE: No unexplained weight loss. No weight gain. HEMATOLOGIC/LYMPHATIC: No anemia. No purpura. No petechiae. No prolonged or excessive bleeding. No palpable lymph nodes. PHYSICAL EXAMINATION: GENERAL: The patient is awake, alert and oriented, lying in bed in no distress. VITAL SIGNS: Temperature 97.9 F, Pulse 77, Respiratory Rate 16, BP 131/83, Pulse Ox 96% HEENT: Head normocephalic, atraumatic. Eyes: Extraocular muscles are intact. Pupils are equal, round and reactive to light and accommodation. Ears: No lesions. Nose appeared normal. Throat: No exudate or erythema. NECK: Supple. No JVD, no carotid bruit. No lymphadenopathy or thyromegaly. LUNGS: Diminished breath sounds with wheezing left upper lobe. Percussion note normal. Chest symmetrical. HEART: S1, S2, no S3. No murmurs. No cyanosis or clubbing. No ascites. Pulses: Dorsalis pedis and posterior tibial pulses +1 to +2 both sides. ABDOMEN: Soft. Non-tender. Bowel sounds active. No CVA tenderness. No mass felt. EXTREMITIES: No edema. Full range of motion of all extremities, equal. NEUROLOGIC: No focal deficit. Cranial nerves II through XII are grossly intact. No headache, no double vision or headache. SKIN: Not dry. Intact. Turgor-normal. LYMPHATIC: No palpable lymph nodes/no lymphedema. MUSCULOSKELETAL: Normal joints with no swelling. Muscle tone is normal. LAB REVIEW: 06/29/18 07:25 06/29/18 07:25 06/29/18 07:25: Total Creatine Kinase 319.8 H 06/29/18 07:25: Sodium 138.9, Potassium 4.85, Chloride 105.5, Carbon Dioxide 29.4, Anion Gap 8.85, BUN 35.0 H, Creatinine 1.10, Estimated GFR (MDRD) 54.00, BUN/Creatinine Ratio 31.81, Glucose 91.2, Calcium 8.70, Total Bilirubin 0.13 L, AST 69.7 H, ALT 74.8 H, Alkaline Phosphatase 143.2 H, Total Protein 6.76, Albumin 3.38 L, Globulin 3.38, Albumin/Globulin Ratio 1.00 06/29/18 07:25: WBC 11.07 H, RBC 4.41, Hgb 13.8, Hct 41.4, MCV 93.9, MCH 31.3 H , MCHC 33.3, RDW Coeff of Miguel 13.7, Plt Count 184, Immature Gran % (Auto) 1.4, Neut % (Auto) 73.0, Lymph % (Auto) 18.1, Scott % (Auto) 6.1, Eos % (Auto) 1.1, Baso % (Auto) 0.3, Immature Gran # (Auto) 0.2, Neut # (Auto) 8.1 H, Lymph # ( Auto) 2.0, Scott # (Auto) 0.7, Eos # (Auto) 0.1, Baso # (Auto) 0.0 06/28/18 23:30: Total Creatine Kinase 369.4 H, CK-MB (CK-2) 2.660 H, CK-MB (CK-2 ) % 0.7200, Troponin I < 0.012 06/28/18 21:45: Influ A Molecular Assay Negative by naat, Influ B Molecular Assay Negative by naat 06/28/18 16:45: Urine Color Yellow, Urine Clarity Clear, Urine pH 6.0, Ur Specific [place] 1.010, Urine Protein Negative, Urine Glucose (UA) Negative, Urine Ketones Negative, Urine Blood Trace-intact, Urine Nitrite Negative, Urine Bilirubin Negative, Urine Urobilinogen 0.2, Ur Leukocyte Esterase Trace, Urine Microscopic RBC 2-5, Urine Microscopic WBC 0-2, Ur Squamous Epith Cells 50-100, Urine Bacteria 1+ 06/28/18 15:58: Puncture Site Rr, O2 Saturation 99.0, ABG pH 7.591 H*, ABG pCO2 24.5 L, ABG pO2 131.0 H, ABG HCO3 23.6, ABG Total CO2 24, ABG Base Excess 2, Rajeev Test +, FiO2 % 21.0 06/28/18 15:42: Procalcitonin 0.11 06/28/18 15:42: Lactic Acid 0.98 06/28/18 15:42: Sodium 137.4, Potassium 4.80, Chloride 103.7, Carbon Dioxide 26.4, Anion Gap 12.10, BUN 35.4 H, Creatinine 0.97, Estimated GFR (MDRD) 63.00, BUN/Creatinine Ratio 36.49, Glucose 97.8, Calcium 9.50, Total Bilirubin 0.29, AST 57.6 H, ALT 54.8 H, Alkaline Phosphatase 161.6 H, Total Creatine Kinase 346.4 H, CK-MB (CK-2) 2.760 H, CK-MB (CK-2) % 0.7900, Troponin I < 0.012, Total Protein 8.10, Albumin 4.18, Globulin 3.92, Albumin/Globulin Ratio 1.06 06/28/18 15:42: WBC 13.80 H, RBC 4.86, Hgb 15.2, Hct 45.3, MCV 93.2, MCH 31.3 H , MCHC 33.6, RDW Coeff of Miguel 14.1, Plt Count 254, Immature Gran % (Auto) 1.7, Neut % (Auto) 65.8, Lymph % (Auto) 22.9, Scott % (Auto) 6.6, Eos % (Auto) 2.6, Baso % (Auto) 0.4, Immature Gran # (Auto) 0.2, Neut # (Auto) 9.1 H, Lymph # ( Auto) 3.2, Scott # (Auto) 0.9, Eos # (Auto) 0.4, Baso # (Auto) 0.1 ASSESSMENT: 1. ACUTE BRONCHITIS 2. PLEURITIC CHEST PAIN 3. OBESITY 4. SMOKER 5. CHRONIC BACK PAIN PLAN: 1. Serum Ehrlichia and Ballard Spotted Fever 2. Echocardiogram 3. T4, TSH 4. Lipids 5. A1C 6. Solu-Cortef 100 mg IV q.8hr 7. Continue Toradol Plan and coordination of the patient's care discussed in the presence of Shutdown Planner and nurse. CONDITION: Stable SCRIBED BY: Abi FRANZ scribed while in presence of service performed by Dr. Mcdaniel/Micaela Chan APRN on 06/29/18 ([id number])
--- NOTE | 2018-06-29 13:28 | PN ---
DATE OF SERVICE: 06/29/18 SUBJECTIVE: The patient was admitted with fever, cough and congestion and urinary tract infection and chest pain. The patient is being treated with IV antibiotics. The patient has been to [place] emergency room and hospital a couple of times. She is being treated with antibiotics. We will continue IV fluids, antibiotics. Monitor her heart rhythm. She will have an echocardiogram done and other tests like Lyme disease and Ehrlichia has been ordered. The patient was seen and examined with the Nurse Practitioner. CONDITION: Stable. TIME SPENT: More than 30 minutes. Plan and coordination of the patient's care discussed in the presence of nurse. DEVAN
[2018-06-29] MEDS ORDERED: DILAUDID 2 MG/ML SDV IVP STA (16:02)
[2018-06-29] MEDS ORDERED: DILAUDID 2 MG/ML SDV ONE (16:16)
[2018-06-29] MEDS: NICODERM 21 MG TD SCH (16:27)
[2018-06-29] MEDS: SODIUM CHLORIDE 1,000 ML IV SCH (16:36)
[2018-06-29] MEDS: REMERON PO SCH (21:34)
[2018-06-30] MEDS: DUONEB NEB SCH ×5 (05:07→22:25)
[2018-06-30] MEDS: SOLU-CORTEF 100 MG IVP SCH (05:37)
[2018-06-30] MEDS: TORADOL IVP SCH ×3 (05:39→20:58)
[2018-06-30] MEDS: PRILOSEC PO SCH (05:39)
[2018-06-30] MEDS: SODIUM CHLORIDE 1,000 ML IV SCH (05:47)
[2018-06-30] MEDS: ROCEPHIN 1 GM in SODIUM CHLORIDE 50 ML IV SCH (09:55)
[2018-06-30] MEDS: LOPRESSOR PO SCH ×2 (09:57→16:46)
[2018-06-30] MEDS: NEURONTIN PO SCH ×3 (09:58→20:58)
[2018-06-30] MEDS: NICODERM 21 MG TD SCH (09:59)
[2018-06-30] MEDS: ZANAFLEX PO SCH ×2 (10:01→20:59)
[2018-06-30] MEDS: NORCO 5-325 PO SCH ×3 (10:01→20:59)
--- NOTE | 2018-06-30 10:01 | PCM.PROG ---
Attending Provider: ATTENDING PROVIDER: [facility] patient is seen with Micaela Chan, Nurse Practitioner. DATE OF SERVICE: 06/30/18 SUBJECTIVE: This 43 year old WHITE/ F was hospitalized 06/28/18. The patient is lying in bed, resting comfortably. She has been up and about walking around and is eating well. The patient drank an excessive amount of juice yesterday likely causing her potassium to slightly elevate. She has been moving around well. REVIEW OF SYSTEMS: CONSTITUTIONAL: No night sweats. No fatigue, malaise, lethargy. No fever or chills. HEENT: Eyes: No visual changes. No eye pain. No eye discharge. ENT: No runny nose. No epistaxis. No sinus pain. No odynophagia. No congestion. RESPIRATORY: Cough and wheeze. No hemoptysis. No shortness of breath. CARDIOVASCULAR: No angina symptoms. No CHF symptoms. No atypical chest pain for CAD. No palpitations. No orthopnea.. GASTROINTESTINAL: No abdominal pain. No nausea or vomiting. No diarrhea or constipation. No hematemesis. No hematochezia. GENITOURINARY: No urgency. No frequency. No dysuria. No hematuria. No obstructive symptoms. No discharge. No pain. No significant abnormal bleeding. MUSCULOSKELETAL: Back pain. NEUROLOGICAL: Awake, alert, oriented to time, place and person. No headache. No neck pain. No syncope. No seizures. No dizziness. PSYCHIATRIC: Not anxious. No depression. No suicidal thoughts. No homicidal thoughts. SKIN: No rash. No lesions. No wounds. ENDOCRINE: No unexplained weight loss. No weight gain. HEMATOLOGIC/LYMPHATIC: No anemia. No purpura. No petechiae. No prolonged or excessive bleeding. No palpable lymph nodes. PHYSICAL EXAMINATION: GENERAL: The patient is awake, alert and oriented, lying in bed in no distress. VITAL SIGNS: Temperature 98.0 F, Pulse 75, Respiratory Rate 20, BP 137/87, Pulse Ox 97% HEENT: Head normocephalic, atraumatic. Eyes: Extraocular muscles are intact. Pupils are equal, round and reactive to light and accommodation. Ears: No lesions. Nose appeared normal. Throat: No exudate or erythema. NECK: Supple. No JVD, no carotid bruit. No lymphadenopathy or thyromegaly. LUNGS: Bilateral inspiratory and expiratory wheezing. Percussion note normal. Chest symmetrical. HEART: S1, S2, no S3. No murmurs. No cyanosis or clubbing. No ascites. Pulses: Dorsalis pedis and posterior tibial pulses +1 to +2 both sides. ABDOMEN: Soft. Non-tender. Bowel sounds active. No CVA tenderness. No mass felt. EXTREMITIES: No edema. Full range of motion of all extremities, equal. NEUROLOGIC: No focal deficit. Cranial nerves II through XII are grossly intact. No headache, no double vision or headache. SKIN: Not dry. Intact. Turgor-normal. LYMPHATIC: No palpable lymph nodes/no lymphedema. MUSCULOSKELETAL: Normal joints with no swelling. Muscle tone is normal. LAB REVIEW: 06/30/18 04:10 06/30/18 04:10 06/30/18 04:10: Sodium 138.0, Potassium 5.15 H, Chloride 109.8 H, Carbon Dioxide 26.4, Anion Gap 6.95, BUN 26.5 H, Creatinine 0.78, Estimated GFR (MDRD) 81.00, BUN/Creatinine Ratio 33.97, Glucose 142.9 H D, Calcium 8.43, Total Bilirubin 0.14 L, AST 37.4 H D, ALT 58.8 H, Alkaline Phosphatase 129.9 H, Total Protein 6.23 L, Albumin 3.11 L, Globulin 3.12, Albumin/Globulin Ratio 0.99 06/30/18 04:10: WBC 13.50 H, RBC 4.18 L, Hgb 13.0, Hct 39.6, MCV 94.7, MCH 31.1 H, MCHC 32.8, RDW Coeff of Miguel 14.0, Plt Count 181, Immature Gran % (Auto) 1.6, Neut % (Auto) 77.2, Lymph % (Auto) 16.7, [place] % (Auto) 4.2, Eos % (Auto) 0.1, Baso % (Auto) 0.2, Immature Gran # (Auto) 0.2, Neut # (Auto) 10.4 H, Lymph # ( Auto) 2.3, [place] # (Auto) 0.6, Eos # (Auto) 0.0, Baso # (Auto) 0.0 06/29/18 08:40: Free T4 1.20 06/29/18 08:40: Triglycerides 142.8, Cholesterol 204.9 H, LDL Cholesterol, Calc 113, VLDL Cholesterol 29, HDL Cholesterol 63.2, Cholesterol/HDL Ratio 3.2 L, TSH 0.408 L 06/29/18 08:40: Hemoglobin A1c 5.44 06/29/18 07:25: CK-MB (CK-2) 2.250, CK-MB (CK-2) % 0.7000, Troponin I < 0.012 ASSESSMENT: 1. ACUTE BRONCHITIS 2. PLEURITIC CHEST PAIN 3. OBESITY 4. SMOKER 5. CHRONIC BACK PAIN PLAN: 1. Change Duonebs to q.4hr. 2. D/C IV fluids. 3. Increase Solu-Medrol to 125 mg q.8hr. 4. The patient had Dobutamine stress in August of 2017 with ejection fraction of 66. Plan and coordination of the patient's care discussed in the presence of Network Analyst and nurse. CONDITION: Stable SCRIBED BY: KORI MCFARLANE Technology Risk Intern scribed while in presence of service performed by Dr. Mendez/Micaela Chan APRN on 06/30/18 ([id number])
[2018-06-30] MEDS: ZITHROMAX PO SCH (10:02)
[2018-06-30] MEDS: ZESTRIL PO SCH (10:02)
[2018-06-30] MEDS: SOLU-CORTEF 250 MG IVP SCH ×2 (12:39→20:58)
[2018-06-30] MEDS ORDERED: SOLU-CORTEF 100 MG IVP SCH (13:00)
[2018-06-30] MEDS ORDERED: DILAUDID 2 MG/ML SDV IVP STA (16:44)
[2018-06-30] MEDS: PROTONIX PO SCH (17:00)
[2018-06-30] MEDS: REMERON PO SCH (20:59)
[2018-07-01] MEDS: DUONEB NEB SCH ×3 (03:07→10:34)
[2018-07-01] MEDS: TORADOL IVP SCH ×2 (04:54→12:54)
[2018-07-01] MEDS: SOLU-CORTEF 250 MG IVP SCH ×2 (04:55→12:55)
[2018-07-01] MEDS: PROTONIX PO SCH (05:46)
[2018-07-01] MEDS: ROCEPHIN 1 GM in SODIUM CHLORIDE 50 ML IV SCH (09:00)
[2018-07-01] MEDS: NICODERM 21 MG TD SCH (09:01)
[2018-07-01] MEDS: ZITHROMAX PO SCH (09:02)
[2018-07-01] MEDS: ZESTRIL PO SCH (09:03)
[2018-07-01] MEDS: ZANAFLEX PO SCH (09:03)
[2018-07-01] MEDS: NORCO 5-325 PO SCH (09:03)
[2018-07-01] MEDS: LOPRESSOR PO SCH (09:03)
[2018-07-01] MEDS: NEURONTIN PO SCH (09:03)
[2018-07-01] MEDS ORDERED: DILAUDID 2 MG/ML SDV IVP STA (10:18)
[2018-07-01 11:24] VITALS: BP 121/79; TEMP 98.6
--- NOTE | 2018-07-03 12:50 | PN ---
DATE OF SERVICE: 06/30/18 SUBJECTIVE: The patient is seen with the nurse practitioner. The patient's condition is stable. She has no pain. No chest pain. The patient is up and about but she continues to ask for pain shots. The patient has been afebrile. Appetite has improved. Kidney functions are stable with evidence of mild dehydration. The patient will undergo echocardiogram. She had Dobutamine stress echo in September 2017 which was normal. Condition stable. TIME SPENT: More than 30 minutes. Plan and coordination of the patient's care discussed in the presence of nurse. DEVAN
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
--- NOTE | 2018-07-03 13:08 | PN ---
BILLING 06/28/18 LEVEL 5 06/29/18 INTERMEDIATE 06/30/18 INTERMEDIATE 07/01/18 DISCHARGE MTDD
--- NOTE | 2018-07-03 14:53 | ECHO2D ---
Date of Exam: 07/01/18 Ordering Physician: DR. JUAQUIN MENDEZ Room #: 115 Reason for Echo: OBESITY, HTN, CHEST PAIN, COPD, BRONCHITIS M-Mode Normal Adult Results LV Dimensions Normal Adult Results AoV Opening excursions >1.6 >1.6 LVEDD-base- 3.5-5.8 4.5 Ao root dimensions 2.0-3.7 2.9 LVESD-base- 3.1-4.6 L. Atrium dimensions 1.9-3.8 4.1 Post. Wall thickness 0.8-1.1 1.0 IV septum (thickness) 0.7-1.2 1.2 Post. Wall excursion 0.72-1.3 NORMAL Septal motion NORMAL Systolic motion R. Ventricular cavity 1.5-2.0 NORMAL LVEF 60% 59% Paradoxical septal wall motion NORMAL 2-D : 2-D M Mode Echocardiogram was performed using apical four chamber and left parasternal long and short axis views. Mitral, tricuspid and aortic valves appear to be normal. Contractility of the left ventricle seems to be normal, so is the cavity size. Left atrial cavity size and aortic root appear to be normal. There is no pericardial effusion. There is no thrombus noted in the left ventricular or left aortic cavity. No mitral valve prolapse noted. M-MODE: MV: NORMAL AV: NORMAL TV: NORMAL PV: CHAMBER SIZE: BORDERLINE LEFT ATRIAL CAVITY WALL MOTION: NORMAL PERICARDIUM: NORMAL INTERPRETATION: 1. BORDERLINE LEFT VENTRICULAR HYPERTROPHY WITH BORDERLINE LEFT ATRIAL CAVITY ENLARGEMENT 2. NORMAL LEFT VENTRICULAR CONTRACTILITY 3. NORMAL VALVES MTDD
== END 2018-07-01 14:10 | disposition home or self-care (01) | DRG 864 ==
LOC: ED 15:07 → MEDSURG B 17:14 → OBSVTOIN 17:26
PROVIDERS: ADMIT Internal Medicine; ATTEND Internal Medicine
DX: R50.9 Fever, unspecified (principal); R06.2 Wheezing; R07.9 Chest pain, unspecified; J06.9 Acute upper respiratory infection, unspecified; J44.9 Chronic obstructive pulmonary disease, unspecified; J20.9 Acute bronchitis, unspecified; E66.9 Obesity, unspecified; E78.5 Hyperlipidemia, unspecified; M54.9 Dorsalgia, unspecified; M15.9 Polyosteoarthritis, unspecified; G62.9 Polyneuropathy, unspecified; I10 Essential (primary) hypertension; K21.9 Gastro-esophageal reflux disease without esophagitis; F17.210 Nicotine dependence, cigarettes, uncomplicated; Z72.0 Tobacco use
CPT/HCPCS: 36415; 80053; 80061; 81001; 82550; 82553; 82803; 83036; 83605; 84145; 84439; 84443; 84484; 85025; 86757; 87015; 87040; 87045; 87070; 87081; 87086; 87186; 87502; 87798; 87899; 93005; 93010; 94640; 96372; 97802; 99284

== ENCOUNTER 2018-07-03 09:18 | Outpatient (CLI) | END 2018-07-03 09:41 | disposition short-term general hospital (02) | LOC: AMBL 09:18 | PROVIDERS: ATTEND Internal Medicine | DX: R06.02 Shortness of breath (principal); R05 Cough ==

== ENCOUNTER 2018-07-31 20:09 | Emergency (ER) | payer OTHER ==
[2018-07-31 20:12] VITALS: BP 153/99; TEMP 98.9; BMI 46.3
[2018-07-31] MEDS ORDERED: MINOCYCLINE HCL PO STA (20:18)
[2018-07-31] MEDS ORDERED: NORCO 7.5-325 PO STA (20:19)
--- NOTE | 2018-07-31 20:22 | ED.PDOC ---
General ED Provider: Dr. LAVINIA CASTRO-ER Chief Complaint: Non-specific Complaint Stated Complaint: estefany got these knots Time Seen by Physician: 20:20 Mode of Arrival: Walk-In Information Source: Patient Exam Limitations: No limitations Primary Care Provider: ANGLE ABBOTT Nursing and Triage Documentation Reviewed and Agree: Yes Does patient meet sepsis criteria?: No System Inflammatory Response Syndrome: Not Applicable Sepsis Protocol: For patient's 13 years and over: Temp is 96.8 and below OR 101 and greater Pulse >90 BPM Resp >20/minute Acutely Altered Mental Status Are patient's symptoms suggestive of a new infection, such as: -Pneumonia -Skin, Soft Tissue -Endocarditis -UTI -Bone, Joint Infection -Implantable Device -Acute Abdominal Infection -Wound Infection -Meningitis -Blood Stream Catheter Infection -Unknown Skin Complaint Exam - Skin/Soft Tissue Complaint/Exam Onset/Duration: 4 days Symptoms Are: Still present Timing: Constant Initial Severity: Mild Current Severity: Mild Location: arms Character: Reports: Redness, Swelling, Raised Alleviating: Reports: None Associated Signs and Symptoms: Reports: Tenderness Related History: 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 Surgical History: Reports: None Recent Exposure to Others w/Similar Symptoms: No Skin Findings: Present: Erythema, Skin lesion, Pustules Joint Tenderness Present: No Differential Diagnoses: Abscess, Infection Review of Systems - Review Of Systems Constitutional: Reports: No symptoms Eyes: Reports: No symptoms Ears, Nose, Mouth, Throat: Reports: No symptoms Respiratory: Reports: No symptoms Cardiac: Reports: No symptoms GI: Reports: No symptoms : Reports: No symptoms Musculoskeletal: Reports: No symptoms Skin: Reports: Lumps, Rash Neurological: Reports: No symptoms Endocrine: Reports: No symptoms Hematologic/Lymphatic: Reports: No symptoms All Other Systems: Reviewed and Negative Past Medical History - Past Medical History Previously Healthy: Yes Endocrine: Reports: None Cardiovascular: Reports: Hypertension Respiratory: Reports: COPD, Asthma Hematological: Reports: None Gastrointestinal: Reports: GERD, Liver (HEPATITIS C), Other (chronic abd pain) Genitourinary: Reports: None Neuro/Psych: Reports: Migraine, Anxiety, Depression, Bipolar Disorder Musculoskeletal: Reports: Arthritis, Back Pain (OSTEOSPONDILITS, DDD ), Joint Pain (knee) Cancer: Reports: Other (uterine cancer) Last Menstrual Period: HYSTERECTOMY Other Pertinent Past Medical History: tylox, topimax, norco, tylenol migraine meds at home - Surgical History General Surgical History: Reports: Hysterectomy, Tubal ligation, Cholecystectomy , Tonsillectomy, Orthopedic (ARM AND HAND SURGERY) - Family History Family History: Reports: Unknown - Social History Smoking Status: Current some day smoker Hx Substance Use: No Alcohol Screening: None - Immunizations Tetanus Shot up to Date: No Physical Exam - Physical Exam Appearance: Well-appearing, No pain distress, Well-nourished Eyes: LEONORA, EOMI, Conjunctiva clear ENT: Ears normal, Nose normal, Oropharynx normal Neck: Supple Respiratory: Airway patent, Breath sounds clear, Breath sounds equal, Respirations nonlabored Cardiovascular: RRR, Pulses normal, No rub, No murmur GI/: Soft, Nontender, No masses, Bowel sounds normal, No Organomegaly Musculoskeletal: Normal strength, ROM intact, No edema, No calf tenderness Skin: Warm Neurological: Sensation intact Psychiatric: Affect appropriate, Mood appropriate Critical Care Note - Critical Care Note Total Time (mins): 0 Course - Course Orders, Labs, Meds: Orders Category Date Time Status Hydrocodone Bit/Acetaminophen [[place] 7.5-325] MEDS 07/31/18 20:19 Stat 1 tab PO ONCE STA Minocycline HCl MEDS 07/31/18 20:18 Stat 100 mg PO ONCE STA Vital Signs: Temp Pulse Resp BP Pulse Ox 07/31/18 20:09 98.9 F 112 H 18 153/99 H 96 Departure - Departure Time of Disposition: 20:21 Disposition: HOME SELF-CARE Discharge Problem: Cellulitis Qualifiers: Site of cellulitis: unspecified site Qualified Code(s): L03.90 - Cellulitis, unspecified Instructions: Cellulitis (ED) Condition: Good Pt referred to PMD for follow-up: Yes IPMP verified?: No Additional Instructions: stop levaquin---minocin 100mg bid x 7 days--f/u with pcpo Allergies/Adverse Reactions: Allergies aspirin Adverse Reaction (Verified 07/31/18 20:12) codeine Adverse Reaction (Verified 07/31/18 20:12) Penicillins Adverse Reaction (Verified 07/31/18 20:12) sumatriptan [From Imitrex] Adverse Reaction (Verified 07/31/18 20:12) "messes with my heart" sumatriptan succinate [From Imitrex] Adverse Reaction (Verified 07/31/18 20:12) "messes with my heart" tramadol [From Ultram] Adverse Reaction (Verified 07/31/18 20:12) Hives patient states she is not actually allergic to this Home Medications: Ambulatory Orders Tizanidine HCl [Zanaflex] 4 mg PO TID 11/30/17 Albuterol Sulfate [Proair Hfa] 2 puff IH ONCE PRN 02/02/18 Hydrocodone Bit/Acetaminophen [[place] 5-325] 1 tab PO TID 04/18/18 Doxycycline Hyclate 100 mg PO BID #20 tablet 06/22/18 Doxycycline Hyclate 100 mg PO BID 10 Days #20 tablet 07/01/18 Prednisone 10 mg PO BIDWM 3 Days tablet 07/01/18 Disposition Discussed With: Patient
[2018-07-31] MEDS ORDERED: DOXYCYCLINE HYCLATE PO STA (20:26)
== END 2018-07-31 20:32 | disposition home or self-care (01) ==
LOC: ED 20:09
DX: L03.90 Cellulitis, unspecified (principal); F17.210 Nicotine dependence, cigarettes, uncomplicated
CPT/HCPCS: 99283

== ENCOUNTER 2018-08-16 15:53 | Emergency (ER) ==
[2018-08-16 15:56] VITALS: BP 170/120; TEMP 98.6; BMI 46.1
--- NOTE | 2018-08-16 16:42 | ED.PDOC ---
General ED Provider: Dr. SOHAM GEIGER Chief Complaint: Headache Stated Complaint: headache chronic Time Seen by Physician: 16:40 Mode of Arrival: Walk-In Information Source: Patient Primary Care Provider: ANGLE ABBOTT Nursing and Triage Documentation Reviewed and Agree: Yes Does patient meet sepsis criteria?: No If yes, has appropriate treatment been initiated?: No System Inflammatory Response Syndrome: Not Applicable Sepsis Protocol: For patient's 13 years and over: Temp is 96.8 and below OR 101 and greater Pulse >90 BPM Resp >20/minute Acutely Altered Mental Status Are patient's symptoms suggestive of a new infection, such as: -Pneumonia -Skin, Soft Tissue -Endocarditis -UTI -Bone, Joint Infection -Implantable Device -Acute Abdominal Infection -Wound Infection -Meningitis -Blood Stream Catheter Infection -Unknown Neurological Complaint Exam - Headache Complaint/Exam Onset: Gradual Duration: chronic Symptoms Are: Still present Timing: Constant Worst Headache Ever: No Initial Severity: Moderate Current Severity: Moderate Location: Diffuse Aggravating: Reports: None Alleviating: Reports: None Associated Signs and Symptoms: Denies: Dizziness, Seizure, Nausea, Vomiting, Sinus pressure, Fever, Neck pain, Neck stiffness, Decreased LOC, Visual changes Related History: Reports: Similar episode Related Surgical History: Reports: None SAH Risk Factors: Reports: None Meningitis Risk Factors: Reports: None SDH Risk Factors: Reports: None Temporal Arteritis Risk Factors: Reports: Female, Normal Head CT Within Last 12 Months: No Papilledema Present: No Temporal Artery Tenderness: Present: None Sinus Tenderness: Present: None TMJ Tenderness: Present: None Glascow Coma Scale (see protocol): 15 Meningeal Signs Positive: No ROM Limited In: No Limitiations Focal Weakness: Present: None Focal Sensory Loss: Present: None Gait: Normal Nystagmus Present: No Gag Reflex Present: Yes [id number]: Normal Findings Babinski Sign: Negative Right, Negative Left Review of Systems - Review Of Systems Constitutional: Reports: No symptoms Eyes: Reports: No symptoms Ears, Nose, Mouth, Throat: Reports: No symptoms Respiratory: Reports: No symptoms Cardiac: Reports: No symptoms GI: Reports: No symptoms : Reports: No symptoms Musculoskeletal: Reports: No symptoms Skin: Reports: No symptoms Neurological: Reports: No symptoms Endocrine: Reports: No symptoms Hematologic/Lymphatic: Reports: No symptoms All Other Systems: Reviewed and Negative Past Medical History - Past Medical History Previously Healthy: Yes Endocrine: Reports: None Cardiovascular: Reports: Hypertension Respiratory: Reports: COPD, Asthma Hematological: Reports: None Gastrointestinal: Reports: GERD, Liver (HEPATITIS C), Other (chronic abd pain) Genitourinary: Reports: None Neuro/Psych: Reports: Migraine, Anxiety, Depression, Bipolar Disorder Musculoskeletal: Reports: Arthritis, Back Pain (OSTEOSPONDILITS, DDD ), Joint Pain (knee) Cancer: Reports: Other (uterine cancer) Last Menstrual Period: HYSTERECTOMY Other Pertinent Past Medical History: tylox, topimax, norco, tylenol migraine meds at home - Surgical History General Surgical History: Reports: Hysterectomy, Tubal ligation, Cholecystectomy , Tonsillectomy, Orthopedic (ARM AND HAND SURGERY) - Family History Family History: Reports: Unknown - Social History Smoking Status: Current some day smoker Hx Substance Use: No Alcohol Screening: None - Immunizations Tetanus Shot up to Date: No Physical Exam - Physical Exam Appearance: Well-appearing, No pain distress, Well-nourished Eyes: LEONORA, EOMI, Conjunctiva clear ENT: Ears normal, Nose normal, Oropharynx normal Respiratory: Airway patent, Breath sounds clear, Breath sounds equal, Respirations nonlabored Cardiovascular: RRR, Pulses normal, No rub, No murmur GI/: Soft, Nontender, No masses, Bowel sounds normal, No Organomegaly Musculoskeletal: Normal strength, ROM intact, No edema, No calf tenderness Skin: Warm, Dry, Normal color Neurological: Sensation intact, Motor intact, Reflexes intact, Cranial nerves intact, Alert, Oriented Psychiatric: Affect appropriate, Mood appropriate Critical Care Note - Critical Care Note Total Time (mins): 0 Course - Course Vital Signs: Temp Pulse Resp BP Pulse Ox 08/16/18 15:53 98.6 F 105 H 18 170/120 H 98 Departure - Departure Time of Disposition: 16:45 Disposition: HOME SELF-CARE Discharge Problem: Headache Qualifiers: Headache chronicity pattern: acute headache Intractability: intractable Instructions: Acute Headache (ED) Condition: Good Pt referred to PMD for follow-up: Yes IPMP verified?: No Additional Instructions: Please call your Family Physician as soon as possible to schedule a follow-up appointment. Allergies/Adverse Reactions: Allergies aspirin Adverse Reaction (Verified 08/16/18 15:56) codeine Adverse Reaction (Verified 08/16/18 15:56) Penicillins Adverse Reaction (Verified 08/16/18 15:56) sumatriptan [From Imitrex] Adverse Reaction (Verified 08/16/18 15:56) "messes with my heart" sumatriptan succinate [From Imitrex] Adverse Reaction (Verified 08/16/18 15:56) "messes with my heart" tramadol [From Ultram] Adverse Reaction (Verified 08/16/18 15:56) Hives patient states she is not actually allergic to this Home Medications: Ambulatory Orders Tizanidine HCl [Zanaflex] 4 mg PO TID 11/30/17 Albuterol Sulfate [Proair Hfa] 2 puff IH ONCE PRN 02/02/18 Hydrocodone Bit/Acetaminophen [[place] 5-325] 1 tab PO TID 04/18/18 Doxycycline Hyclate 100 mg PO BID #20 tablet 06/22/18 Doxycycline Hyclate 100 mg PO BID 10 Days #20 tablet 07/01/18 Prednisone 10 mg PO BIDWM 3 Days tablet 07/01/18
[2018-08-16] MEDS ORDERED: TORADOL IM STA (16:47)
== END 2018-08-16 17:45 | disposition home or self-care (01) ==
LOC: ED 15:53
DX: R51 Headache (principal); G89.29 Other chronic pain; I10 Essential (primary) hypertension; F17.210 Nicotine dependence, cigarettes, uncomplicated
CPT/HCPCS: 96372; 99283; 99284

== ENCOUNTER 2018-08-22 23:09 | Emergency (ER) ==
[2018-08-22 23:22] VITALS: TEMP 98.1; BMI 46.5
[2018-08-22] MEDS ORDERED: COMPAZINE IM STA (23:40)
[2018-08-22] MEDS ORDERED: TORADOL IM STA (23:40)
--- NOTE | 2018-08-22 23:56 | ED.PDOC ---
General ED Provider: Dr. ROXANE LAZO Chief Complaint: Headache Stated Complaint: Patient is a 43 year old female who has a history of headache. Hari santos had similar headaches to her Migraine that started yesterday worse today. Time Seen by Physician: 23:54 Mode of Arrival: Walk-In Information Source: Patient Primary Care Provider: ANGLE ABBOTT Nursing and Triage Documentation Reviewed and Agree: Yes Does patient meet sepsis criteria?: No System Inflammatory Response Syndrome: Not Applicable Sepsis Protocol: For patient's 13 years and over: Temp is 96.8 and below OR 101 and greater Pulse >90 BPM Resp >20/minute Acutely Altered Mental Status Are patient's symptoms suggestive of a new infection, such as: -Pneumonia -Skin, Soft Tissue -Endocarditis -UTI -Bone, Joint Infection -Implantable Device -Acute Abdominal Infection -Wound Infection -Meningitis -Blood Stream Catheter Infection -Unknown Neurological Complaint Exam - Headache Complaint/Exam Onset: Gradual Duration: 10 hours Symptoms Are: Still present Timing: Constant Worst Headache Ever: No Initial Severity: Severe Current Severity: Severe Location: Frontal, Occipital Character: Reports: Throbbing Aggravating: Reports: Bright lights Alleviating: Reports: None Associated Signs and Symptoms: Reports: Nausea, Vomiting Related History: Reports: Similar episode Related Surgical History: Reports: None SAH Risk Factors: Reports: None Meningitis Risk Factors: Reports: None SDH Risk Factors: Reports: None Temporal Arteritis Risk Factors: Reports: None Normal Head CT Within Last 12 Months: Yes Fundoscopic Exam: Present: Normal Findings Papilledema Present: No Temporal Artery Tenderness: Present: None Sinus Tenderness: Present: None TMJ Tenderness: Present: None Glascow Coma Scale (see protocol): 15 Meningeal Signs Positive: No Pain on Passive Flexion-Positive Kernig's: No ROM Limited In: No Limitiations Focal Weakness: Present: None Focal Sensory Loss: Present: None Gait: Normal Nystagmus Present: No Gag Reflex Present: No [id number]: Normal Findings Romberg Test Positive: No Babinski Sign: Negative Right, Negative Left Differential Diagnoses: Migraine, Sinus Headache, Tension Headache, Viral Syndrome Review of Systems - Review Of Systems Constitutional: Reports: No symptoms Eyes: Reports: Photophobia Ears, Nose, Mouth, Throat: Reports: No symptoms Respiratory: Reports: No symptoms Cardiac: Reports: No symptoms GI: Reports: No symptoms : Reports: No symptoms Musculoskeletal: Reports: No symptoms Skin: Reports: No symptoms Neurological: Reports: Anxiety, Headache Endocrine: Reports: No symptoms Hematologic/Lymphatic: Reports: No symptoms All Other Systems: Reviewed and Negative Past Medical History - Past Medical History Previously Healthy: Yes Endocrine: Reports: None Cardiovascular: Reports: Hypertension Respiratory: Reports: COPD, Asthma Hematological: Reports: None Gastrointestinal: Reports: GERD, Liver (HEPATITIS C), Other (chronic abd pain) Genitourinary: Reports: None Neuro/Psych: Reports: Migraine, Anxiety, Depression, Bipolar Disorder Musculoskeletal: Reports: Arthritis, Back Pain (OSTEOSPONDILITS, DDD ), Joint Pain (knee) Cancer: Reports: Other (uterine cancer) Last Menstrual Period: hysterectomy 2009 Other Pertinent Past Medical History: tylox, topimax, norco, tylenol migraine meds at home - Surgical History General Surgical History: Reports: Hysterectomy, Tubal ligation, Cholecystectomy , Tonsillectomy, Orthopedic (ARM AND HAND SURGERY) - Family History Family History: Reports: Unknown - Social History Smoking Status: Current some day smoker Hx Substance Use: No Alcohol Screening: None - Immunizations Tetanus Shot up to Date: Yes Physical Exam - Physical Exam Appearance: Obese Ill-appearing: Moderate Pain Distress: Severe Eyes: LEONORA, EOMI, Conjunctiva clear Neck: Supple Respiratory: Airway patent, Breath sounds clear, Breath sounds equal, Respirations nonlabored Cardiovascular: RRR GI/: Soft, Nontender, No masses, Bowel sounds normal, No Organomegaly Musculoskeletal: Normal strength, ROM intact, No edema, No calf tenderness Skin: Warm, Dry, Normal color Neurological: Alert, Oriented Psychiatric: Anxious Critical Care Note - Critical Care Note Total Time (mins): 0 Course - Course Orders, Labs, Meds: Orders Category Date Time Status Ketorolac Tromethamine [Toradol] MEDS 08/22/18 23:40 Discontinued 60 mg IM ONCE STA Methylprednisolone Sod Succ/Pf [Solu-Medrol 125 mg] MEDS 08/23/18 00:37 Discontinued 125 mg IM ONCE STA Orphenadrine Citrate [Norflex] MEDS 08/23/18 00:48 Discontinued 60 mg IM ONCE STA Prochlorperazine Edisylate [Compazine] MEDS 08/22/18 23:40 Discontinued 10 mg IM ONCE STA Medications Discontinued Medications Generic Name Dose Route Start Last Admin Trade Name Freq PRN Reason Stop Dose Admin Ketorolac Tromethamine 60 mg 08/22/18 23:40 08/22/18 23:55 Toradol IM 08/22/18 23:41 60 mg ONCE STA Administration Methylprednisolone Sodium Succinate 125 mg 08/23/18 00:37 08/23/18 00:48 Solu-Medrol 125 Mg IM 08/23/18 00:38 125 mg ONCE STA Administration Orphenadrine Citrate 60 mg 08/23/18 00:48 08/23/18 00:50 Norflex IM 08/23/18 00:49 60 mg ONCE STA Administration Prochlorperazine Edisylate 10 mg 08/22/18 23:40 08/22/18 23:55 Compazine IM 08/22/18 23:41 10 mg ONCE STA Administration Vital Signs: Temp Pulse Resp BP Pulse Ox 08/23/18 01:15 90 20 152/98 H 98 08/22/18 23:10 98.1 F 100 H 18 142/95 H 96 Departure - Departure Time of Disposition: 00:30 Disposition: HOME SELF-CARE Discharge Problem: Migraine headache Qualifiers: Migraine type: without aura Status migrainosus presence: without status migrainosus Intractability: not intractable Qualified Code(s): G43.009 - Migraine without aura, not intractable, without status migrainosus Instructions: Migraine Headache (ED) Condition: Stable Pt referred to PMD for follow-up: Yes IPMP verified?: No Additional Instructions: Continue home medications follow up with PCP in3 days Allergies/Adverse Reactions: Allergies aspirin Adverse Reaction (Verified 08/16/18 15:56) codeine Adverse Reaction (Verified 08/16/18 15:56) Penicillins Adverse Reaction (Verified 08/16/18 15:56) sumatriptan [From Imitrex] Adverse Reaction (Verified 08/16/18 15:56) "messes with my heart" sumatriptan succinate [From Imitrex] Adverse Reaction (Verified 08/16/18 15:56) "messes with my heart" tramadol [From Ultram] Adverse Reaction (Verified 08/16/18 15:56) Hives patient states she is not actually allergic to this Home Medications: Ambulatory Orders Tizanidine HCl [Zanaflex] 4 mg PO TID 11/30/17 Albuterol Sulfate [Proair Hfa] 2 puff IH ONCE PRN 02/02/18 Hydrocodone Bit/Acetaminophen [[place] 5-325] 1 tab PO TID 04/18/18 Disposition Discussed With: Patient
[2018-08-23] MEDS ORDERED: SOLU-MEDROL 125 MG IM STA (00:37)
[2018-08-23] MEDS ORDERED: NORFLEX IVP STA (00:37)
[2018-08-23] MEDS ORDERED: NORFLEX IM STA (00:48)
[2018-08-23 01:24] VITALS: BP 152/98
== END 2018-08-23 01:21 | disposition home or self-care (01) ==
LOC: ED 23:09
DX: G43.009 Migraine without aura, not intractable, without status migrainosus (principal); F17.210 Nicotine dependence, cigarettes, uncomplicated
CPT/HCPCS: 96372; 99283

== ENCOUNTER 2018-09-01 22:19 | Emergency (ER) | payer OTHER ==
[2018-09-01] MEDS ORDERED: DILAUDID 4 MG/ML SYRINGE IM STA (22:30)
[2018-09-01 22:31] VITALS: TEMP 100.5; BMI 46.7
[2018-09-01] MEDS ORDERED: PHENERGAN 25 MG/ML VIAL IM STA (22:31)
[2018-09-01] MEDS ORDERED: BENADRYL IM STA (22:31)
[2018-09-01] MEDS ORDERED: DILAUDID 1 MG/ML SYRINGE ONE (22:33)
--- NOTE | 2018-09-01 22:34 | ED.PDOC ---
General ED Provider: Dr. LAVINIA CASTRO-ER Chief Complaint: Headache Stated Complaint: estefany got a migraine rangel Time Seen by Physician: 22:32 Mode of Arrival: Walk-In Information Source: Patient Exam Limitations: No limitations Primary Care Provider: ANGLE ABBOTT Nursing and Triage Documentation Reviewed and Agree: Yes Does patient meet sepsis criteria?: No System Inflammatory Response Syndrome: Not Applicable Sepsis Protocol: For patient's 13 years and over: Temp is 96.8 and below OR 101 and greater Pulse >90 BPM Resp >20/minute Acutely Altered Mental Status Are patient's symptoms suggestive of a new infection, such as: -Pneumonia -Skin, Soft Tissue -Endocarditis -UTI -Bone, Joint Infection -Implantable Device -Acute Abdominal Infection -Wound Infection -Meningitis -Blood Stream Catheter Infection -Unknown Neurological Complaint Exam - Headache Complaint/Exam Onset: Gradual Duration: several hours Symptoms Are: Still present Timing: Constant Worst Headache Ever: No Initial Severity: Mild Current Severity: Moderate Location: Diffuse Character: Reports: Dull, Throbbing, Pressure, Typical headache, Migraine Alleviating: Reports: None Associated Signs and Symptoms: Reports: Nausea Related History: Reports: Similar episode ("this feels like my usual migraine") Related Surgical History: Reports: None SAH Risk Factors: Reports: None Meningitis Risk Factors: Reports: None SDH Risk Factors: Reports: None Temporal Arteritis Risk Factors: Reports: Female, Normal Head CT Within Last 12 Months: Yes Fundoscopic Exam: Present: Normal Findings Papilledema Present: No Temporal Artery Tenderness: Present: None Sinus Tenderness: Present: None TMJ Tenderness: Present: None Meningeal Signs Positive: No Pain on Passive Flexion-Positive Kernig's: No ROM Limited In: No Limitiations Focal Weakness: Present: None Focal Sensory Loss: Present: None Nystagmus Present: No Gag Reflex Present: Yes [id number]: Normal Findings Romberg Test Positive: No Babinski Sign: Negative Right, Negative Left Heel to Toe Normal: Yes Differential Diagnoses: Migraine Review of Systems - Review Of Systems Constitutional: Reports: No symptoms Eyes: Reports: No symptoms Ears, Nose, Mouth, Throat: Reports: No symptoms Respiratory: Reports: No symptoms Cardiac: Reports: No symptoms GI: Reports: Nausea : Reports: No symptoms Musculoskeletal: Reports: No symptoms Skin: Reports: No symptoms Neurological: Reports: Headache Endocrine: Reports: No symptoms Hematologic/Lymphatic: Reports: No symptoms All Other Systems: Reviewed and Negative Past Medical History - Past Medical History Previously Healthy: Yes Endocrine: Reports: None Cardiovascular: Reports: Hypertension Respiratory: Reports: COPD, Asthma Hematological: Reports: None Gastrointestinal: Reports: GERD, Liver (HEPATITIS C), Other (chronic abd pain) Genitourinary: Reports: None Neuro/Psych: Reports: Migraine, Anxiety, Depression, Bipolar Disorder Musculoskeletal: Reports: Arthritis, Back Pain (OSTEOSPONDILITS, DDD ), Joint Pain (knee) Cancer: Reports: Other (uterine cancer) Last Menstrual Period: 2009 hy Other Pertinent Past Medical History: tylox, topimax, norco, tylenol migraine meds at home - Surgical History General Surgical History: Reports: Hysterectomy, Tubal ligation, Cholecystectomy , Tonsillectomy, Orthopedic (ARM AND HAND SURGERY) - Family History Family History: Reports: Unknown - Social History Smoking Status: Current some day smoker Hx Substance Use: No Alcohol Screening: None - Immunizations Tetanus Shot up to Date: Yes Physical Exam - Physical Exam Appearance: Well-appearing, No pain distress, Well-nourished Pain Distress: Moderate Eyes: LEONORA, EOMI, Conjunctiva clear ENT: Ears normal Neck: Supple Respiratory: Airway patent, Breath sounds clear, Breath sounds equal, Respirations nonlabored Cardiovascular: RRR GI/: Soft, Nontender, No masses, Bowel sounds normal, No Organomegaly Musculoskeletal: Normal strength, ROM intact, No edema, No calf tenderness Skin: Warm Neurological: Sensation intact Psychiatric: Affect appropriate, Mood appropriate Re-Evaluation - Re-Evaluation Time of Re-Evaluation: 10:55 Status: Improved Vital Signs Stable: Yes Pain Level: 1 Appearance: NAD Lungs: Clear Skin: Warm and Dry Neuro: Alert and Oriented X3 CV: RRR Critical Care Note - Critical Care Note Total Time (mins): 0 Course - Course Orders, Labs, Meds: Orders Category Date Time Status Diphenhydramine Inj [Benadryl] MEDS 09/01/18 22:31 Stat 25 mg IM ONCE STA Hydromorphone HCl/Pf [Dilaudid 4 mg/ml Syringe] MEDS 09/01/18 22:30 Stat 2 mg IM ONCE STA Promethazine HCl [Phenergan 25 mg/ml Vial] MEDS 09/01/18 22:31 Stat 25 mg IM ONCE STA Vital Signs: Temp Pulse Resp BP Pulse Ox 09/01/18 22:22 100.5 F H 120 H 20 154/112 H 95 Departure - Departure Time of Disposition: 22:35 Disposition: HOME SELF-CARE Discharge Problem: Migraine Qualifiers: Migraine type: without aura Status migrainosus presence: without status migrainosus Intractability: not intractable Qualified Code(s): G43.009 - Migraine without aura, not intractable, without status migrainosus Instructions: Migraine Headache (ED) Condition: Good Pt referred to PMD for follow-up: Yes IPMP verified?: No Additional Instructions: f/u with pcp Allergies/Adverse Reactions: Allergies aspirin Adverse Reaction (Verified 09/01/18 22:29) codeine Adverse Reaction (Verified 09/01/18 22:29) Penicillins Adverse Reaction (Verified 09/01/18 22:29) sumatriptan [From Imitrex] Adverse Reaction (Verified 09/01/18 22:29) "messes with my heart" sumatriptan succinate [From Imitrex] Adverse Reaction (Verified 09/01/18 22:29) "messes with my heart" tramadol [From Ultram] Adverse Reaction (Verified 09/01/18 22:29) Hives patient states she is not actually allergic to this Home Medications: Ambulatory Orders Tizanidine HCl [Zanaflex] 4 mg PO TID 11/30/17 Albuterol Sulfate [Proair Hfa] 2 puff IH ONCE PRN 02/02/18 Hydrocodone Bit/Acetaminophen [[place] 5-325] 1 tab PO TID 04/18/18 Disposition Discussed With: Patient, Family
[2018-09-01 23:15] VITALS: BP 150/84
== END 2018-09-01 23:25 | disposition home or self-care (01) ==
LOC: ED 22:19
DX: G43.009 Migraine without aura, not intractable, without status migrainosus (principal); F17.210 Nicotine dependence, cigarettes, uncomplicated
CPT/HCPCS: 96372; 99282

== ENCOUNTER 2018-09-04 04:01 | Emergency (ER) | payer OTHER ==
[2018-09-04 04:15] VITALS: TEMP 98.4; BMI 50.8
[2018-09-04 04:30] VITALS: BP 132/62
--- NOTE | 2018-09-04 05:17 | ED.PDOC ---
General ED Provider: Dr. ROXANE LAZO Chief Complaint: Cough Stated Complaint: Patient is a 43 year old who comes to the ER with cough, pleuritic chest pain, some shortness of breath and Headache. Cough is productive of greyish/green sputum. Also complains of Nausea. She has chronic back pain and goes to pain management. Time Seen by Physician: 04:40 Mode of Arrival: Walk-In Information Source: Patient Exam Limitations: No limitations Primary Care Provider: ANGLE ABBOTT Nursing and Triage Documentation Reviewed and Agree: Yes Does patient meet sepsis criteria?: No System Inflammatory Response Syndrome: Not Applicable Sepsis Protocol: For patient's 13 years and over: Temp is 96.8 and below OR 101 and greater Pulse >90 BPM Resp >20/minute Acutely Altered Mental Status Are patient's symptoms suggestive of a new infection, such as: -Pneumonia -Skin, Soft Tissue -Endocarditis -UTI -Bone, Joint Infection -Implantable Device -Acute Abdominal Infection -Wound Infection -Meningitis -Blood Stream Catheter Infection -Unknown Respiratory Complaint Exam - Respiratory Complaint/Exam Onset/Duration: 5 days Symptoms Are: Still present Timing: Constant Initial Severity: Mild Current Severity: Moderate Location: Chest Character: Reports: Productive cough Aggravating: Reports: Passive smoke exposure, Weather Associated Signs and Symptoms: Reports: Rapid breathing, Dyspnea, URI Home Oxygen Use: No Recent Stress Test: No Recent Echo/LV Function: No Current Antibiotic Use: No Current Asthma Medication Use: Yes Respiratory Distress: None Inadequate Respiratory Effort: No Dysphagia Present: No Stridor Present: No JVD Present: No Accessory Muscle Use: No Retractions: Not Present Diminished Breath Sounds: Yes Sinus Tenderness: None Grunting Respirations: No Kussmaul Respirations: No Differential Diagnoses: COPD Exacerbation Review of Systems - Review Of Systems Constitutional: Reports: No symptoms Eyes: Reports: No symptoms Ears, Nose, Mouth, Throat: Reports: No symptoms Respiratory: Reports: Cough, Short of air Cardiac: Reports: Chest pain GI: Reports: No symptoms : Reports: No symptoms Musculoskeletal: Reports: Back pain Skin: Reports: No symptoms Neurological: Reports: Anxiety, Headache (like prior migraine ) Endocrine: Reports: No symptoms Hematologic/Lymphatic: Reports: No symptoms All Other Systems: Reviewed and Negative Past Medical History - Past Medical History Previously Healthy: Yes Endocrine: Reports: None Cardiovascular: Reports: Hypertension Respiratory: Reports: COPD, Asthma Hematological: Reports: None Gastrointestinal: Reports: GERD, Liver (HEPATITIS C), Other (chronic abd pain) Genitourinary: Reports: None Neuro/Psych: Reports: Migraine, Anxiety, Depression, Bipolar Disorder Musculoskeletal: Reports: Arthritis, Back Pain (OSTEOSPONDILITS, DDD ), Joint Pain (knee) Cancer: Reports: Other (uterine cancer) Last Menstrual Period: PT HAS HAD A HYSTERECTOMY Other Pertinent Past Medical History: tylox, topimax, norco, tylenol migraine meds at home - Surgical History General Surgical History: Reports: Hysterectomy, Tubal ligation, Cholecystectomy , Tonsillectomy, Orthopedic (ARM AND HAND SURGERY) - Family History Family History: Reports: Unknown - Social History Smoking Status: Current some day smoker, Light tobacco smoker Hx Substance Use: Yes ("I SMOKE WEED") Alcohol Screening: Occasionally - Immunizations Tetanus Shot up to Date: Yes Physical Exam - Physical Exam Appearance: Ill-appearing, Obese Pain Distress: Moderate Neck: Supple Respiratory: Airway patent, Breath sounds clear, Breath sounds equal, Respirations nonlabored Cardiovascular: RRR, Pulses normal, No rub, No murmur GI/: Soft, Nontender, No masses, Bowel sounds normal, No Organomegaly Skin: Warm Neurological: Alert, Oriented Psychiatric: Anxious Critical Care Note - Critical Care Note Total Time (mins): 0 Course - Course Orders, Labs, Meds: Orders Category Date Time Status NEBULIZER TREATMENT Stat CARDIO 09/04/18 05:22 Completed Dihydroergotamine Mesylate [Dhe 45] MEDS 09/04/18 05:21 Discontinued 1 mg SUBCUT ONCE STA Ipratropium/Albuterol Neb [Duoneb] MEDS 09/04/18 05:21 Discontinued 1 vial NEB ONCE STA Ketorolac Tromethamine [Toradol] MEDS 09/04/18 06:42 Discontinued 60 mg IM ONCE STA Methylprednisolone Sod Succ/Pf [Solu-Medrol 125 mg] MEDS 09/04/18 05:23 Discontinued 125 mg IM ONCE STA Prochlorperazine Edisylate [Compazine] MEDS 09/04/18 05:21 Discontinued 10 mg IM ONCE STA Medications Discontinued Medications Generic Name Dose Route Start Last Admin Trade Name Freq PRN Reason Stop Dose Admin Albuterol/Ipratropium 1 vial 09/04/18 05:21 09/04/18 05:39 Duoneb NEB 09/04/18 05:22 1 vial ONCE STA Administration Dihydroergotamine Mesylate 1 mg 09/04/18 05:21 09/04/18 05:36 Dhe 45 SUBCUT 09/04/18 05:22 1 mg ONCE STA Administration Ketorolac Tromethamine 60 mg 09/04/18 06:42 09/04/18 07:01 Toradol IM 09/04/18 06:43 60 mg ONCE STA Administration Methylprednisolone Sodium Succinate 125 mg 09/04/18 05:23 09/04/18 05:34 Solu-Medrol 125 Mg IM 09/04/18 05:24 125 mg ONCE STA Administration Prochlorperazine Edisylate 10 mg 09/04/18 05:21 09/04/18 05:35 Compazine IM 09/04/18 05:22 10 mg ONCE STA Administration Vital Signs: Temp Pulse Resp BP Pulse Ox 09/04/18 04:02 98.4 F 85 24 132/62 95 Departure - Departure Time of Disposition: 06:37 Disposition: HOME SELF-CARE Discharge Problem: Bronchitis, Pleurisy without effusion Migraine Qualifiers: Migraine type: without aura Status migrainosus presence: without status migrainosus Intractability: not intractable Qualified Code(s): G43.009 - Migraine without aura, not intractable, without status migrainosus COPD (chronic obstructive pulmonary disease) Qualifiers: COPD type: chronic bronchitis Chronic bronchitis type: simple Qualified Code(s) : J41.0 - Simple chronic bronchitis Instructions: Pleurisy (ED), How to Stop Smoking (ED), Migraine Headache (ED), COPD (Chronic Obstructive Pulmonary Disease) (ED) Condition: Stable Pt referred to PMD for follow-up: Yes IPMP verified?: No Additional Instructions: STOP SMOKING CONTINUE HOME INHALERS CONTINUE HEADACHE MEDICATIONS NEEDED FOLLOW UP WITH PCP IN 1-2 DAYS Allergies/Adverse Reactions: Allergies aspirin Adverse Reaction (Verified 09/04/18 04:17) UPSET STOMACH codeine Adverse Reaction (Verified 09/04/18 04:17) Itching Penicillins Adverse Reaction (Verified 09/04/18 04:17) THROAT SWELLS sumatriptan [From Imitrex] Adverse Reaction (Verified 09/04/18 04:17) HIGH BLOOD PRESSURE "messes with my heart" sumatriptan succinate [From Imitrex] Adverse Reaction (Verified 09/04/18 04:17) HIGH BLOOD PRESSURE "messes with my heart" tramadol [From Ultram] Adverse Reaction (Verified 09/01/18 22:29) Hives patient states she is not actually allergic to this Home Medications: Ambulatory Orders Tizanidine HCl [Zanaflex] 4 mg PO TID 11/30/17 Albuterol Sulfate [Proair Hfa] 2 puff IH Q4H PRN 02/02/18 Hydrocodone Bit/Acetaminophen [[place] 5-325] 1 tab PO TID 04/18/18 Butalb/Acetaminophen/Caffeine [Kzkyzg-Wqnczega-Ffap 50-325-40] 1 each PO BID PRN 09/04/18 Ondansetron [Zofran Odt] 4 mg PO TID PRN 09/04/18 Disposition Discussed With: Patient
[2018-09-04] MEDS ORDERED: DHE 45 SUBCUT STA (05:21)
[2018-09-04] MEDS ORDERED: COMPAZINE IM STA (05:21)
[2018-09-04] MEDS ORDERED: DUONEB NEB STA (05:21)
[2018-09-04] MEDS ORDERED: SOLU-MEDROL 125 MG IM STA (05:23)
[2018-09-04] MEDS ORDERED: TORADOL IM STA (06:42)
== END 2018-09-04 07:20 | disposition home or self-care (01) ==
LOC: ED 04:01
DX: G43.009 Migraine without aura, not intractable, without status migrainosus (principal); J41.0 Simple chronic bronchitis; F17.210 Nicotine dependence, cigarettes, uncomplicated
CPT/HCPCS: 94640; 96372; 99283

== ENCOUNTER 2018-11-03 20:59 | Emergency (ER) ==
[2018-11-03 21:05] VITALS: BP 120/79; TEMP 98.2; BMI 52.5
--- NOTE | 2018-11-03 21:14 | ED.PDOC ---
General ED Provider: Dr. SOHAM GEIGER Chief Complaint: Back Pain Stated Complaint: low back pain Time Seen by Physician: 21:00 (seen with RADHA FROM PT'S REGISTRATION AT ALL TIMES STATED LIFTED A HEAVY OBJECT HAS PAIN) Mode of Arrival: Walk-In Information Source: Patient Exam Limitations: No limitations (LOW BACK LUMBAR ) Primary Care Provider: ANGLE ABBOTT Nursing and Triage Documentation Reviewed and Agree: Yes Does patient meet sepsis criteria?: No If yes, has appropriate treatment been initiated?: No System Inflammatory Response Syndrome: Not Applicable Sepsis Protocol: For patient's 13 years and over: Temp is 96.8 and below OR 101 and greater Pulse >90 BPM Resp >20/minute Acutely Altered Mental Status Are patient's symptoms suggestive of a new infection, such as: -Pneumonia -Skin, Soft Tissue -Endocarditis -UTI -Bone, Joint Infection -Implantable Device -Acute Abdominal Infection -Wound Infection -Meningitis -Blood Stream Catheter Infection -Unknown Musculoskeletal Complaint Exam - Back Pain Complaint/Exam Mechanism of Injury: Reports: No known trauma Onset/Duration: LOW BACK PAIN 1 DAY AFTER LIFTING A HEAVY OBJECT Timing: Constant Episodes Lasting: Hours Initial Severity: Mild Current Severity: Mild Location: Reports: Discrete (LUMBAR) Character: Reports: Aching Aggravating: Reports: Movements, Lifting, Bending, Walking Alleviating: Reports: Rest, Position Associated Signs and Symptoms: Denies: Swelling, Redness, Bruising, Fever, Weakness, Numbness, Tingling, Abdominal pain, Flank pain, Bladder incontinence, Bowel incontinence, Weight loss, Pain with weight bearing Related History: Reports: Similar episode TAD Risk Factors: Reports: Hypertension AAA Risk Factors: Reports: Hypertension Cauda Equina Risk Factors: Reports: None Epidural Abcess Risk Factors: Reports: None Related Surgical History: Reports: None Focal Tenderness: No Paraspinal Muscle Tenderness: No Paraspinal Muscle Spasm: No Scoliosis: No Lordosis: No Kyphosis: No Hip Motion Testing Pain: Right Negative, Left Negative Focal Weakness: Present: None Focal Sensory Loss: Present: None Gait: Present: Normal Differential Diagnoses: Strain, Sprain Review of Systems - Review Of Systems Constitutional: Reports: No symptoms Eyes: Reports: No symptoms Ears, Nose, Mouth, Throat: Reports: No symptoms Respiratory: Reports: No symptoms Cardiac: Reports: No symptoms GI: Reports: No symptoms : Reports: No symptoms Musculoskeletal: Reports: Back pain Skin: Reports: No symptoms Neurological: Reports: No symptoms Endocrine: Reports: No symptoms Hematologic/Lymphatic: Reports: No symptoms All Other Systems: Reviewed and Negative Past Medical History - Past Medical History Previously Healthy: Yes Endocrine: Reports: None Cardiovascular: Reports: Hypertension Respiratory: Reports: COPD, Asthma Hematological: Reports: None Gastrointestinal: Reports: GERD, Liver (HEPATITIS C), Other (chronic abd pain) Genitourinary: Reports: None Neuro/Psych: Reports: Migraine, Anxiety, Depression, Bipolar Disorder Musculoskeletal: Reports: Arthritis, Back Pain (OSTEOSPONDILITS, DDD ), Joint Pain (knee) Cancer: Reports: Other (uterine cancer) Last Menstrual Period: HYSTERECTOMY Other Pertinent Past Medical History: tylox, topimax, norco, tylenol migraine meds at home - Surgical History General Surgical History: Reports: Hysterectomy, Tubal ligation, Cholecystectomy , Tonsillectomy, Orthopedic (ARM AND HAND SURGERY) - Family History Family History: Reports: Unknown - Social History Smoking Status: Current some day smoker, Light tobacco smoker Hx Substance Use: Yes ("I SMOKE WEED") Alcohol Screening: Occasionally - Immunizations Tetanus Shot up to Date: Yes Physical Exam - Physical Exam Appearance: Well-appearing, No pain distress, Well-nourished Eyes: LEONORA, EOMI, Conjunctiva clear ENT: Ears normal, Nose normal, Oropharynx normal Respiratory: Airway patent, Breath sounds clear, Breath sounds equal, Respirations nonlabored Cardiovascular: RRR, Pulses normal, No rub, No murmur GI/: Soft, Nontender, No masses, Bowel sounds normal, No Organomegaly Musculoskeletal: Normal strength, ROM intact, No edema, No calf tenderness Skin: Warm, Dry, Normal color Neurological: Sensation intact, Motor intact, Reflexes intact, Cranial nerves intact, Alert, Oriented Psychiatric: Affect appropriate, Mood appropriate Critical Care Note - Critical Care Note Total Time (mins): 0 Course - Course Vital Signs: Temp Pulse Resp BP Pulse Ox 11/03/18 21:00 98.2 F 78 18 120/79 97 Departure - Departure Time of Disposition: 21:15 Disposition: HOME SELF-CARE Discharge Problem: Low back pain Qualifiers: Chronicity: acute Back pain laterality: midline Sciatica presence: without sciatica Qualified Code(s): M54.5 - Low back pain Instructions: Low Back Strain (ED), Chronic Back Pain (ED) Condition: Good Pt referred to PMD for follow-up: Yes IPMP verified?: No Additional Instructions: Please call your Family Physician as soon as possible to schedule a follow-up appointment. Allergies/Adverse Reactions: Allergies aspirin Adverse Reaction (Verified 11/03/18 21:03) UPSET STOMACH codeine Adverse Reaction (Verified 11/03/18 21:03) Itching Penicillins Adverse Reaction (Verified 11/03/18 21:03) THROAT SWELLS sumatriptan [From Imitrex] Adverse Reaction (Verified 11/03/18 21:03) HIGH BLOOD PRESSURE "messes with my heart" sumatriptan succinate [From Imitrex] Adverse Reaction (Verified 11/03/18 21:03) HIGH BLOOD PRESSURE "messes with my heart" tramadol [From Ultram] Adverse Reaction (Verified 11/03/18 21:03) Hives patient states she is not actually allergic to this Home Medications: Ambulatory Orders Albuterol Sulfate [Proair Hfa] 2 puff IH Q4H PRN 02/02/18 Hydrocodone Bit/Acetaminophen [[place] 5-325] 1 tab PO TID 04/18/18 Butalb/Acetaminophen/Caffeine [Ndxeok-Efeqrhge-Iwcy 50-325-40] 1 each PO BID PRN 09/04/18 Cyclobenzaprine HCl [Flexeril] 10 mg PO BID 11/03/18
[2018-11-03] MEDS ORDERED: TORADOL IM STA (21:16)
== END 2018-11-03 21:50 | disposition home or self-care (01) ==
LOC: ED 20:59
DX: M54.5 Low back pain (principal); X50.0XXA Overexertion from strenuous movement or load, initial encounter; F17.210 Nicotine dependence, cigarettes, uncomplicated
CPT/HCPCS: 96372; 99282

== ENCOUNTER 2019-01-14 19:39 | Emergency (ER) | payer OTHER ==
[2019-01-14 19:46] VITALS: TEMP 99.5; BMI 48.8
[2019-01-14] MEDS ORDERED: DECADRON 4 MG/ML SDV IM STA (20:02)
[2019-01-14] MEDS ORDERED: TORADOL IM STA (20:02)
--- NOTE | 2019-01-14 20:09 | ED.PDOC ---
General ED Provider: Dr. ROXANE LAZO Chief Complaint: Back Pain Stated Complaint: Patient is a 43 year old female who comes to the ER with Mid to lower back pain worse with movement. Rates the pain is severe and thinks it is due to the matress. Took [facility] at 2 pm but has not helped. Also complains of migranes. Time Seen by Physician: 19:50 Mode of Arrival: Walk-In Information Source: Patient Primary Care Provider: ANGLE ABBOTT Nursing and Triage Documentation Reviewed and Agree: Yes Does patient meet sepsis criteria?: No System Inflammatory Response Syndrome: Not Applicable Sepsis Protocol: For patient's 13 years and over: Temp is 96.8 and below OR 101 and greater Pulse >90 BPM Resp >20/minute Acutely Altered Mental Status Are patient's symptoms suggestive of a new infection, such as: -Pneumonia -Skin, Soft Tissue -Endocarditis -UTI -Bone, Joint Infection -Implantable Device -Acute Abdominal Infection -Wound Infection -Meningitis -Blood Stream Catheter Infection -Unknown Musculoskeletal Complaint Exam - Back Pain Complaint/Exam Mechanism of Injury: Reports: No known trauma Onset/Duration: 2 days Symptoms Are: Still present Timing: Constant Initial Severity: Moderate Current Severity: Severe Location: Reports: Discrete (right lower back radiating to the right leg ) Character: Reports: Aching, Throbbing Aggravating: Reports: Movements, Lifting Alleviating: Reports: None Associated Signs and Symptoms: Denies: Swelling, Redness, Bruising, Fever, Weakness, Numbness, Tingling, Abdominal pain, Flank pain, Bladder incontinence, Bowel incontinence, Weight loss, Pain with weight bearing TAD Risk Factors: Reports: None AAA Risk Factors: Reports: None Cauda Equina Risk Factors: Reports: None Epidural Abcess Risk Factors: Reports: None Related Surgical History: Reports: None Focal Tenderness: Yes Paraspinal Muscle Tenderness: Yes Paraspinal Muscle Spasm: Yes Scoliosis: No Lordosis: No Kyphosis: No SLR Test: Right Positive, Left Negative Hip Motion Testing Pain: Right Negative, Left Negative Focal Weakness: Present: None Focal Sensory Loss: Present: None Gait: Present: Normal Differential Diagnoses: Strain, Sprain Review of Systems - Review Of Systems Constitutional: Reports: No symptoms Eyes: Reports: No symptoms Ears, Nose, Mouth, Throat: Reports: No symptoms Respiratory: Reports: No symptoms Cardiac: Reports: No symptoms GI: Reports: No symptoms : Reports: No symptoms Musculoskeletal: Reports: Back pain Skin: Reports: No symptoms Neurological: Reports: No symptoms Endocrine: Reports: No symptoms Hematologic/Lymphatic: Reports: No symptoms All Other Systems: Reviewed and Negative Past Medical History - Past Medical History Previously Healthy: Yes Endocrine: Reports: None Cardiovascular: Reports: Hypertension Respiratory: Reports: COPD, Asthma Hematological: Reports: None Gastrointestinal: Reports: GERD, Liver (HEPATITIS C), Other (chronic abd pain) Genitourinary: Reports: None Neuro/Psych: Reports: Migraine, Anxiety, Depression, Bipolar Disorder Musculoskeletal: Reports: Arthritis, Back Pain (OSTEOSPONDILITS, DDD ), Joint Pain (knee) Cancer: Reports: Other (uterine cancer) Last Menstrual Period: 2009 Other Pertinent Past Medical History: tylox, topimax, norco, tylenol migraine meds at home - Surgical History General Surgical History: Reports: Hysterectomy, Tubal ligation, Cholecystectomy , Tonsillectomy, Orthopedic (ARM AND HAND SURGERY) - Family History Family History: Reports: Unknown - Social History Smoking Status: Current some day smoker, Light tobacco smoker Hx Substance Use: Yes ("I SMOKE WEED") Alcohol Screening: None - Immunizations Tetanus Shot up to Date: Yes Physical Exam - Physical Exam Appearance: Obese Ill-appearing: Mild Pain Distress: Severe Neck: Supple Respiratory: Airway patent, Breath sounds clear, Breath sounds equal, Respirations nonlabored Cardiovascular: RRR, Pulses normal, No rub, No murmur GI/: Soft, Nontender, No masses, Bowel sounds normal, No Organomegaly Musculoskeletal: Normal strength, Limited ROM (tenderness to palpation on the right lowr back ) Skin: Warm, Dry Critical Care Note - Critical Care Note Total Time (mins): 0 Course - Course Orders, Labs, Meds: Lab Review 01/14/19 19:56 Urine Color Yellow Urine Clarity Clear Urine pH 6.0 Ur Specific [place] 1.010 Urine Protein Negative Urine Glucose (UA) Negative Urine Ketones Negative Urine Blood Negative Urine Nitrite Negative Urine Bilirubin Negative Urine Urobilinogen 0.2 Ur Leukocyte Esterase Negative Orders Category Date Time Status URINALYSIS C & S IF INDICATED Stat LAB 01/14/19 19:56 Completed Dexamethasone 4 mg/ml Inj [Decadron 4 mg/ml Sdv] MEDS 01/14/19 20:02 Discontinued 8 mg IM ONCE STA Ketorolac Tromethamine [Toradol] MEDS 01/14/19 20:02 Discontinued 60 mg IM ONCE STA Nalbuphine HCl [Nubain] MEDS 01/14/19 20:52 Discontinued 10 mg IM ONCE STA CT LUMBAR SPINE W/O CONTRAST Stat RADS 01/14/19 20:02 Completed Medications Discontinued Medications Generic Name Dose Route Start Last Admin Trade Name Freq PRN Reason Stop Dose Admin Dexamethasone Sodium Phosphate 8 mg 01/14/19 20:02 01/14/19 20:13 Decadron 4 Mg/Ml Sdv IM 01/14/19 20:03 8 mg ONCE STA Administration Ketorolac Tromethamine 60 mg 01/14/19 20:02 01/14/19 20:13 Toradol IM 01/14/19 20:03 60 mg ONCE STA Administration Nalbuphine HCl 10 mg 01/14/19 20:52 01/14/19 21:15 Nubain IM 01/14/19 20:53 10 mg ONCE STA Administration Vital Signs: Temp Pulse Resp BP Pulse Ox 01/14/19 21:35 138/96 H 01/14/19 19:40 99.5 F 122 H 20 178/120 H 97 Departure - Departure Time of Disposition: 21:30 Disposition: HOME SELF-CARE Discharge Problem: Backache Instructions: Chronic Back Pain (DC), Back Pain (ED) Condition: Good Pt referred to PMD for follow-up: Yes IPMP verified?: No Additional Instructions: Continue home Medications Follow up with PCP in 3 days Allergies/Adverse Reactions: Allergies aspirin Adverse Reaction (Verified 01/14/19 19:46) UPSET STOMACH codeine Adverse Reaction (Verified 01/14/19 19:46) Itching Penicillins Adverse Reaction (Verified 01/14/19 19:46) THROAT SWELLS sumatriptan [From Imitrex] Adverse Reaction (Verified 01/14/19 19:46) HIGH BLOOD PRESSURE "messes with my heart" sumatriptan succinate [From Imitrex] Adverse Reaction (Verified 01/14/19 19:46) HIGH BLOOD PRESSURE "messes with my heart" tramadol [From Ultram] Adverse Reaction (Verified 01/14/19 19:46) Hives patient states she is not actually allergic to this Home Medications: Ambulatory Orders Albuterol Sulfate [Proair Hfa] 2 puff IH Q4H PRN 02/02/18 Hydrocodone Bit/Acetaminophen [[facility] 5-325] 1 tab PO TID 04/18/18 Butalb/Acetaminophen/Caffeine [Bwsqab-Xqjkppug-Cbqp 50-325-40] 1 each PO BID PRN 09/04/18 Cyclobenzaprine HCl [Flexeril] 10 mg PO BID 11/03/18 Gabapentin 400 mg PO TID 01/14/19 Disposition Discussed With: Patient, Family
--- NOTE | 2019-01-14 20:48 | CT ---
EXAM: CT lumbar spine without contrast. HISTORY: Lower back pain COMPARISON: CT lumbar spine 11/01/2016 and MRI 08/13/2016 TECHNIQUE: Serial axial images of the spine were obtained from the lower thoracic spine through the pelvis without contrast. These were viewed in multiple planes. FINDINGS: Vertebral bodies demonstrate no acute compression fracture or subluxation. There is mild facet arthropathy. There is narrowing at T11-C12 with anterior disc osteophyte. Small disc osteophy louis are present. There is no lytic or blastic lesion. The lumbosacral junction is intact. The post erior and transverse processes are normal. L1-L2: Normal L2-L3: Normal L3-L4: There is minimal facet arthropathy with no central or neural foraminal narrowing. L4-L5: Small disc bulge and facet arthropathy with no central or neural foraminal narrowing. L5-S1: Small disc osteophyte and facet arthropathy with no central or neural foraminal narrowing. Limited views of the soft tissues are unremarkable. Gallbladder has been resected. IMPRESSION: 1. No acute compression fracture or subluxation. 2. Mild scattered degenerative disease of the lumbosacral spine.
[2019-01-14] MEDS ORDERED: NUBAIN IM STA (20:52)
[2019-01-14 21:54] VITALS: BP 138/96
== END 2019-01-14 21:39 | disposition home or self-care (01) ==
LOC: ED 19:39
DX: M54.5 Low back pain (principal); M54.6 Pain in thoracic spine; F17.210 Nicotine dependence, cigarettes, uncomplicated
CPT/HCPCS: 81001; 96372; 99283

== ENCOUNTER 2019-02-05 14:13 | Emergency (ER) ==
[2019-02-05 14:27] VITALS: BP 160/104; TEMP 98.2; BMI 50.4
--- NOTE | 2019-02-05 14:59 | DI ---
EXAM: CHEST FRONTAL AND LATERAL VIEWS HISTORY: Cough. COMPARISON: 06/22/2018 FINDINGS: Heart size and mediastinal contour remain within normal limits. No acute infiltrates. Normal vascularity with no pleural fluid or pneumothorax. The bony thorax has no acute finding. IMPRESSION: No acute process.
--- NOTE | 2019-02-05 15:11 | CT ---
EXAM: CT Head HISTORY: Headache, dizziness, loss of consciousness COMPARISON: 02/15/2018 TECHNIQUE: CT head performed without contrast FINDINGS: There is no mass effect, midline shift, or intracranial hemmorhage. Rousseau white differenti ation is preserved. There is no extra-axial collection. The ventricles, sulci, and basal cisterns a re patent and symmetric. There is no depressed calvarial fracture. The mastoid air cells are clear. The visualized paranasal sinuses are clear. IMPRESSION: No acute intracranial abnormality.
--- NOTE | 2019-02-05 15:48 | ED.PDOC ---
General ED Provider: Dr. SOHAM GEIGER Chief Complaint: Dizziness Stated Complaint: headache Time Seen by Physician: 14:15 (seen with belia at all times ) Mode of Arrival: Walk-In Information Source: Patient Exam Limitations: No limitations Primary Care Provider: ANGLE ABBOTT Nursing and Triage Documentation Reviewed and Agree: Yes Does patient meet sepsis criteria?: No System Inflammatory Response Syndrome: Not Applicable Sepsis Protocol: For patient's 13 years and over: Temp is 96.8 and below OR 101 and greater Pulse >90 BPM Resp >20/minute Acutely Altered Mental Status Are patient's symptoms suggestive of a new infection, such as: -Pneumonia -Skin, Soft Tissue -Endocarditis -UTI -Bone, Joint Infection -Implantable Device -Acute Abdominal Infection -Wound Infection -Meningitis -Blood Stream Catheter Infection -Unknown Neurological Complaint Exam - Headache Complaint/Exam Onset: Gradual Duration: 1 day some dizziness abut no ataxia noted ambulatory in E.D. Symptoms Are: Still present (H/A ONLY) Timing: Intermittent Episodes Lasting: Days (CHRONIC ISSUE) Worst Headache Ever: No Initial Severity: Moderate Current Severity: Mild Location: Diffuse Character: Reports: Dull Aggravating: Reports: Exertion Alleviating: Reports: Rest Associated Signs and Symptoms: Reports: Dizziness (OFF AND ON BUT NOT A NEW PROBLEM). Denies: Seizure, Nausea, Vomiting, Sinus pressure, Fever, Neck pain, Neck stiffness, Decreased LOC, Visual changes Related History: Reports: Similar episode Related Surgical History: Reports: None SAH Risk Factors: Reports: Hypertension Meningitis Risk Factors: Reports: None SDH Risk Factors: Reports: None Temporal Arteritis Risk Factors: Reports: Female, (HX/O HEPC ) Normal Head CT Within Last 12 Months: Yes Fundoscopic Exam: Present: Normal Findings Papilledema Present: No (BELIA PRESENT) Temporal Artery Tenderness: Present: None Sinus Tenderness: Present: None TMJ Tenderness: Present: None Glascow Coma Scale (see protocol): 15. NO MOTOR SENSORY DEFICITS Meningeal Signs Positive: No Pain on Passive Flexion-Positive Kernig's: No ROM Limited In: No Limitiations Focal Weakness: Present: None Focal Sensory Loss: Present: None Gait: Normal Nystagmus Present: No Gag Reflex Present: Yes [id number]: Normal Findings Romberg Test Positive: No Babinski Sign: Negative Right, Negative Left Heel to Toe Normal: No Differential Diagnoses: Migraine Review of Systems - Review Of Systems Constitutional: Reports: Malaise Eyes: Reports: No symptoms Ears, Nose, Mouth, Throat: Reports: No symptoms Respiratory: Reports: No symptoms Cardiac: Reports: No symptoms GI: Reports: No symptoms : Reports: No symptoms, Dysuria Musculoskeletal: Reports: No symptoms Skin: Reports: No symptoms Neurological: Reports: Headache, Other (DIZZINESS ) Endocrine: Reports: No symptoms Hematologic/Lymphatic: Reports: No symptoms All Other Systems: Reviewed and Negative Past Medical History - Past Medical History Previously Healthy: Yes Endocrine: Reports: None Cardiovascular: Reports: Hypertension Respiratory: Reports: COPD, Asthma Hematological: Reports: None Gastrointestinal: Reports: GERD, Liver (HEPATITIS C), Other (chronic abd pain) Genitourinary: Reports: None Neuro/Psych: Reports: Migraine, Anxiety, Depression, Bipolar Disorder Musculoskeletal: Reports: Arthritis, Back Pain (OSTEOSPONDILITS, DDD ), Joint Pain (knee) Cancer: Reports: Other (uterine cancer) Last Menstrual Period: unknown Other Pertinent Past Medical History: tylox, topimax, norco, tylenol migraine meds at home - Surgical History General Surgical History: Reports: Hysterectomy, Tubal ligation, Cholecystectomy , Tonsillectomy, Orthopedic (ARM AND HAND SURGERY) - Family History Family History: Reports: Unknown - Social History Smoking Status: Current some day smoker, Light tobacco smoker Hx Substance Use: Yes ("I SMOKE WEED") Alcohol Screening: None Physical Exam - Physical Exam Appearance: Well-appearing, No pain distress, Well-nourished Eyes: LEONORA, EOMI, Conjunctiva clear ENT: Ears normal, Nose normal, Oropharynx normal Respiratory: Airway patent, Breath sounds clear, Breath sounds equal, Respirations nonlabored Cardiovascular: RRR, Pulses normal, No rub, No murmur GI/: Soft, Nontender, No masses, Bowel sounds normal, No Organomegaly Musculoskeletal: Normal strength, ROM intact, No edema, No calf tenderness Skin: Warm, Dry, Normal color Neurological: Sensation intact, Motor intact, Reflexes intact, Cranial nerves intact, Alert, Oriented Psychiatric: Affect appropriate, Mood appropriate - NIH Stroke Scale 1a. Level of Consciousness: 0=Alert and keenly responsive 1b. Level of Consciousness Questions: 0=Answers correctly to two questions 1c. Level of Consciousness Commands: 0=Performs two tasks correctly 2. Best Gaze: 0=Normal 3. Visual: 0=No visual loss 4. Facial Palsy: 0=Normal 5a. Motor Left Arm: 0=No drift,arm holds 90 degrees for 10 sec., leg 30 degrees for 5 sec. 5b. Motor Right Arm: 0=No drift,arm holds 90 degrees for 10 sec., leg 30 degrees for 5 sec. 6a. Motor Left Le=No drift,arm holds 90 degrees for 10 sec., leg 30 degrees for 5 sec. 6b. Motor Right Le=No drift,arm holds 90 degrees for 10 sec., leg 30 degrees for 5 sec. 7. Limb Ataxia: 0=Absent 8. Sensory: 0=Normal 9. Best Language: 0=No aphasia 10. Dysarthria: 0=Normal 11. Extincion and Inattention: 0=Normal Stroke Scale Total: 0 Interpretation - Radiology Interpretation Radiology Interpretation By: Radiologist Radiology Results: No acute changes - Dope Worker Rate: Normal Rhythm: Sinus Ectopy: None - EKG Interpretation Rate: Normal Rhythm: Sinus Ectopy: None Deridder: NL Re-Evaluation - Re-Evaluation Time of Re-Evaluation: 15:51 Status: Improved Vital Signs Stable: Yes Pain Level: 1/10 Appearance: NAD Lungs: Clear Skin: Warm and Dry Neuro: Alert and Oriented X3 CV: RRR Additional Comments: NEURO ENTIRELY NONE FOCAL . Critical Care Note - Critical Care Note Total Time (mins): 0 Course - Course Hematology/Chemistry: 02/05/19 15:00 02/05/19 15:00 Orders, Labs, Meds: Lab Review 02/05/19 02/05/19 02/05/19 15:00 15:00 15:00 WBC 11.84 H RBC 5.05 Hgb 15.6 Hct 46.9 MCV 92.9 MCH 30.9 MCHC 33.3 RDW Coeff of Miguel 13.7 Plt Count 191 Immature Gran % (Auto) 0.8 Neut % (Auto) 64.3 Lymph % (Auto) 25.4 Roosevelt % (Auto) 5.9 Eos % (Auto) 3.2 Baso % (Auto) 0.4 Immature Gran # (Auto) 0.1 Neut # (Auto) 7.6 H Lymph # (Auto) 3.0 Roosevelt # (Auto) 0.7 Eos # (Auto) 0.4 Baso # (Auto) 0.1 PT 9.1 L INR 0.91 APTT 25.0 Sodium 140.7 Potassium 3.60 Chloride 104.9 Carbon Dioxide 28.9 Anion Gap 10.50 BUN 9.7 Creatinine 0.59 L Estimated GFR (MDRD) 112.00 BUN/Creatinine Ratio 16.44 Glucose 93.6 Calcium 9.03 Total Bilirubin 0.35 AST 49.4 H ALT 48.4 H Alkaline Phosphatase 133.5 H Total Protein 7.64 Albumin 4.43 Globulin 3.21 Albumin/Globulin Ratio 1.38 Orders Category Date Time Status EKG-(ED ONLY) Stat CARDIO 02/05/19 14:39 Completed CBC W/ AUTO DIFF Stat LAB 02/05/19 15:00 Completed COMPREHENSIVE METABOLIC PANEL Stat LAB 02/05/19 15:00 Completed PARTIAL THROMBOPLASTIN TIME Stat LAB 02/05/19 15:00 Completed PT WITH INR Stat LAB 02/05/19 15:00 Completed URINALYSIS C & S IF INDICATED Stat LAB 02/05/19 14:39 Uncollected CHEST, 2 VIEWS PA & LAT Stat RADS 02/05/19 14:[address] HEAD W/O CONTRAST Stat RADS 02/05/19 14:39 Completed Vital Signs: Temp Pulse Resp BP Pulse Ox 02/05/19 14:15 98.2 F 112 H 20 160/104 H 98 Departure - Departure Time of Disposition: 15:52 Disposition: HOME SELF-CARE Discharge Problem: Chronic headache Qualifiers: Headache type: unspecified Intractability: not intractable Qualified Code(s): R51 - Headache Instructions: Migraine Headache (ED), Vertigo (ED) Condition: Good Pt referred to PMD for follow-up: Yes IPMP verified?: No Additional Instructions: Please call your Family Physician as soon as possible to schedule a follow-up appointment. Allergies/Adverse Reactions: Allergies aspirin Adverse Reaction (Verified 02/05/19 14:27) UPSET STOMACH codeine Adverse Reaction (Verified 02/05/19 14:27) Itching Penicillins Adverse Reaction (Verified 02/05/19 14:27) THROAT SWELLS sumatriptan [From Imitrex] Adverse Reaction (Verified 02/05/19 14:27) HIGH BLOOD PRESSURE "messes with my heart" sumatriptan succinate [From Imitrex] Adverse Reaction (Verified 02/05/19 14:27) HIGH BLOOD PRESSURE "messes with my heart" tramadol [From Ultram] Adverse Reaction (Verified 02/05/19 14:27) Hives patient states she is not actually allergic to this Home Medications: Ambulatory Orders Albuterol Sulfate [Proair Hfa] 2 puff IH Q4H PRN 02/02/18 Hydrocodone Bit/Acetaminophen [[place] 5-325] 1 tab PO TID 04/18/18 Butalb/Acetaminophen/Caffeine [Huhbxe-Vuimnzrl-Nnpk 50-325-40] 1 each PO BID PRN 09/04/18 Cyclobenzaprine HCl [Flexeril] 10 mg PO BID 11/03/18 Gabapentin 400 mg PO TID 01/14/19 Disposition Discussed With: Patient
== END 2019-02-05 16:15 | disposition home or self-care (01) ==
LOC: ED 14:13
DX: R51 Headache (principal); R42 Dizziness and giddiness; I10 Essential (primary) hypertension; F17.210 Nicotine dependence, cigarettes, uncomplicated
CPT/HCPCS: 36415; 80053; 85025; 85610; 85730; 93005; 93010; 99283

== ENCOUNTER 2019-02-25 14:58 | Emergency (ER) | payer OTHER ==
[2019-02-25 15:03] VITALS: BP 114/55; TEMP 97.8; BMI 43.5
[2019-02-25] MEDS ORDERED: MORPHINE 4 MG/ML SYRINGE IM STA (15:47)
[2019-02-25] MEDS ORDERED: ZOFRAN 4 MG/2 ML IM STA (15:47)
--- NOTE | 2019-02-25 15:53 | CT ---
EXAM: CT of the left hand. HISTORY: Fall. Pain. COMPARISON: None. No plain films were obtained. TECHNIQUE: Contiguous axial images were obtained through the left hand. Sagittal and coronal reform ats were reviewed. FINDINGS: No acute fractures are seen. There are no lytic or blastic lesions. There are no erosive changes. No significant degenerative os. The soft tissues. FINDINGS: Normal left hand.
--- NOTE | 2019-02-25 15:55 | CT ---
EXAM: CT of the left wrist. HISTORY: Fall. COMPARISON: None. No plain films were obtained. TECHNIQUE: Contiguous axial images were obtained through the left wrist. Sagittal and coronal refor mats reviewed. FINDINGS: There is mild motion artifact. No acute fractures are seen. CT of the hand from the same date showed no motion artifact. There are no fractures. There are no lytic or blastic lesions. Th e soft tissues are unremarkable. IMPRESSION: Normal left wrist.
--- NOTE | 2019-02-25 16:25 | ED.PDOC ---
General ED Provider: Dr. SOHAM GEIGER Chief Complaint: Wrist Pain/Injury Stated Complaint: wrist and hand injury after a fall over a dog no other injury offered Time Seen by Physician: 15:00 Mode of Arrival: Walk-In Information Source: Patient Exam Limitations: No limitations Primary Care Provider: ANGLE ABBOTT Nursing and Triage Documentation Reviewed and Agree: Yes Does patient meet sepsis criteria?: No System Inflammatory Response Syndrome: Not Applicable Sepsis Protocol: For patient's 13 years and over: Temp is 96.8 and below OR 101 and greater Pulse >90 BPM Resp >20/minute Acutely Altered Mental Status Are patient's symptoms suggestive of a new infection, such as: -Pneumonia -Skin, Soft Tissue -Endocarditis -UTI -Bone, Joint Infection -Implantable Device -Acute Abdominal Infection -Wound Infection -Meningitis -Blood Stream Catheter Infection -Unknown Musculoskeletal Complaint Exam - Hand/Wrist Complaint/Exam Location of Pain: Reports: Left, Hand Mechanism of Injury: Reports: Trauma Onset/Duration: today mechanism offered was FOOSH Symptoms Are: Still present Onset of Pain: Reports: Immediate Initial Severity: Moderate Current Severity: Mild Location: Reports: Discrete (hand wrist only no pain over the snuff box ) Character: Reports: Dull Aggravating: Reports: None Associated Signs and Symptoms: Denies: Swelling, Redness, Bruising, Fever, Weakness, Numbness, Tingling Dominant Hand: Right Related Surgical History: Reports: None Hand/Wrist Findings: Absent: Ecchymosis, Abnormal contour Tenderness: Present: Radius, Ulna, Carpal, Metacarpal, Phalanx. Absent: Snuff box Compartment Syndrome Risk Factors: Present: Pain Differential Diagnoses: Closed Fracture, Sprain, Strain Review of Systems - Review Of Systems Constitutional: Reports: No symptoms Eyes: Reports: No symptoms Ears, Nose, Mouth, Throat: Reports: No symptoms Respiratory: Reports: No symptoms Cardiac: Reports: No symptoms GI: Reports: No symptoms : Reports: No symptoms Musculoskeletal: Reports: Joint pain (wrist left) Skin: Reports: No symptoms Neurological: Reports: No symptoms Endocrine: Reports: No symptoms Hematologic/Lymphatic: Reports: No symptoms All Other Systems: Reviewed and Negative Past Medical History - Past Medical History Previously Healthy: Yes Endocrine: Reports: None Cardiovascular: Reports: Hypertension Respiratory: Reports: COPD, Asthma Hematological: Reports: None Gastrointestinal: Reports: GERD, Liver (HEPATITIS C), Other (chronic abd pain) Genitourinary: Reports: None Neuro/Psych: Reports: Migraine, Anxiety, Depression, Bipolar Disorder Musculoskeletal: Reports: Arthritis, Back Pain (OSTEOSPONDILITS, DDD ), Joint Pain (knee) Cancer: Reports: Other (uterine cancer) Last Menstrual Period: none Other Pertinent Past Medical History: tylox, topimax, norco, tylenol migraine meds at home - Surgical History General Surgical History: Reports: Hysterectomy, Tubal ligation, Cholecystectomy , Tonsillectomy, Orthopedic (ARM AND HAND SURGERY) - Family History Family History: Reports: Unknown - Social History Smoking Status: Current some day smoker, Light tobacco smoker Hx Substance Use: Yes ("I SMOKE WEED") Alcohol Screening: None - Immunizations Tetanus Shot up to Date: Yes Physical Exam - Physical Exam Appearance: Well-appearing, No pain distress, Well-nourished Eyes: LEONORA, EOMI, Conjunctiva clear ENT: Ears normal, Nose normal, Oropharynx normal Respiratory: Airway patent, Breath sounds clear, Breath sounds equal, Respirations nonlabored Cardiovascular: RRR, Pulses normal, No rub, No murmur GI/: Soft, Nontender, No masses, Bowel sounds normal, No Organomegaly Musculoskeletal: Limited ROM (wrist) Skin: Warm, Dry, Normal color Neurological: Sensation intact, Motor intact, Reflexes intact, Cranial nerves intact, Alert, Oriented Psychiatric: Affect appropriate, Mood appropriate Critical Care Note - Critical Care Note Total Time (mins): 0 Course - Course Orders, Labs, Meds: Orders Category Date Time Status Morphine Sulfate [Morphine 4 mg/ml Syringe] MEDS 02/25/19 15:47 Discontinued 4 mg IM ONCE STA Ondansetron HCl/Pf [Zofran 4 mg/2 ml] MEDS 02/25/19 15:47 Discontinued 4 mg IM ONCE STA CT HAND LEFT WITHOUT CONTRAST Stat RADS 02/25/19 15:[address] WRIST LEFT WITHOUT CONTRAST Stat RADS 02/25/19 15:24 Taken Medications Discontinued Medications Generic Name Dose Route Start Last Admin Trade Name Freq PRN Reason Stop Dose Admin Morphine Sulfate 4 mg 02/25/19 15:47 02/25/19 15:55 Morphine 4 Mg/Ml Syringe IM 02/25/19 15:48 Not Given ONCE STA Ondansetron HCl 4 mg 02/25/19 15:47 02/25/19 15:55 Zofran 4 Mg/2 Ml IM 02/25/19 15:48 Not Given ONCE STA Vital Signs: Temp Pulse Resp BP Pulse Ox 02/25/19 14:58 97.8 F 106 H 22 114/55 L 97 Departure - Departure Time of Disposition: 16:25 Disposition: HOME SELF-CARE Discharge Problem: Pain in wrist, Injury of wrist Left wrist sprain Qualifiers: Encounter type: initial encounter Qualified Code(s): S63.502A - Unspecified sprain of left wrist, initial encounter Sprain of hand, left Qualifiers: Encounter type: initial encounter Qualified Code(s): S63.92XA - Sprain of unspecified part of left wrist and hand, initial encounter Instructions: Wrist Sprain (ED), Hand Sprain (ED) Condition: Good Pt referred to PMD for follow-up: Yes IPMP verified?: No Additional Instructions: Please call your Family Physician as soon as possible to schedule a follow-up appointment. Allergies/Adverse Reactions: Allergies aspirin Adverse Reaction (Verified 02/05/19 14:27) UPSET STOMACH codeine Adverse Reaction (Verified 02/05/19 14:27) Itching Penicillins Adverse Reaction (Verified 02/05/19 14:27) THROAT SWELLS sumatriptan [From Imitrex] Adverse Reaction (Verified 02/05/19 14:27) HIGH BLOOD PRESSURE "messes with my heart" sumatriptan succinate [From Imitrex] Adverse Reaction (Verified 02/05/19 14:27) HIGH BLOOD PRESSURE "messes with my heart" tramadol [From Ultram] Adverse Reaction (Verified 02/05/19 14:27) Hives patient states she is not actually allergic to this Home Medications: Ambulatory Orders Albuterol Sulfate [Proair Hfa] 2 puff IH Q4H PRN 02/02/18 Hydrocodone Bit/Acetaminophen [[place] 5-325] 1 tab PO TID 04/18/18 Butalb/Acetaminophen/Caffeine [Izfhek-Wegewtni-Ctra 50-325-40] 1 each PO BID PRN 09/04/18 Cyclobenzaprine HCl [Flexeril] 10 mg PO BID 11/03/18 Gabapentin 400 mg PO TID 01/14/19
== END 2019-02-25 16:28 | disposition home or self-care (01) ==
LOC: ED 14:58
DX: S63.92XA Sprain of unspecified part of left wrist and hand, initial encounter (principal); W01.0XXA Fall on same level from slipping, tripping and stumbling without subsequent striking against object, initial encounter; F17.210 Nicotine dependence, cigarettes, uncomplicated
CPT/HCPCS: 99283

== ENCOUNTER 2019-03-07 02:28 | Emergency (ER) ==
[2019-03-07 02:45] VITALS: BP 133/82; TEMP 98.1; BMI 43.6
[2019-03-07] MEDS ORDERED: NUBAIN IM STA (03:21)
--- NOTE | 2019-03-07 03:22 | ED.PDOC ---
General ED Provider: Dr. ROXANE LAZO Chief Complaint: Extremity Pain/Injury Stated Complaint: Injury on 02/25/19 when tripped over dog, fell, and landed on left arm. Came here to ER on that date and pt. says CT scan was negative. Pt went to [facility] ER on 03/01/19 and was told had cellulitis to L wrist and given antibiotics. Here today due to pain increasing and edema. Wearing sling for left arm at present. Time Seen by Physician: 03:00 Mode of Arrival: Walk-In Information Source: Patient Exam Limitations: No limitations Primary Care Provider: ANGLE ABBOTT Nursing and Triage Documentation Reviewed and Agree: Yes Does patient meet sepsis criteria?: Yes If yes, has appropriate treatment been initiated?: No (Already on Double antibiotics) System Inflammatory Response Syndrome: Pulse >90 BPM Sepsis Protocol: For patient's 13 years and over: Temp is 96.8 and below OR 101 and greater Pulse >90 BPM Resp >20/minute Acutely Altered Mental Status Are patient's symptoms suggestive of a new infection, such as: -Pneumonia -Skin, Soft Tissue -Endocarditis -UTI -Bone, Joint Infection -Implantable Device -Acute Abdominal Infection -Wound Infection -Meningitis -Blood Stream Catheter Infection -Unknown Review of Systems - Review Of Systems Constitutional: Reports: No symptoms Eyes: Reports: No symptoms Ears, Nose, Mouth, Throat: Reports: No symptoms Respiratory: Reports: No symptoms Cardiac: Reports: No symptoms GI: Reports: No symptoms : Reports: No symptoms Musculoskeletal: Reports: Joint pain, Joint swelling, Muscle pain Skin: Reports: No symptoms Neurological: Reports: No symptoms Endocrine: Reports: No symptoms Hematologic/Lymphatic: Reports: No symptoms All Other Systems: Reviewed and Negative Past Medical History - Past Medical History Previously Healthy: Yes Endocrine: Reports: None Cardiovascular: Reports: Hypertension Respiratory: Reports: COPD, Asthma Hematological: Reports: None Gastrointestinal: Reports: GERD, Liver (HEPATITIS C), Other (chronic abd pain) Genitourinary: Reports: None Neuro/Psych: Reports: Migraine, Anxiety, Depression, Bipolar Disorder Musculoskeletal: Reports: Arthritis, Back Pain (OSTEOSPONDILITS, DDD ), Joint Pain (knee) Cancer: Reports: Other (uterine cancer) Last Menstrual Period: 2009 Other Pertinent Past Medical History: tylox, topimax, norco, tylenol migraine meds at home - Surgical History General Surgical History: Reports: Hysterectomy, Tubal ligation, Cholecystectomy , Tonsillectomy, Orthopedic (ARM AND HAND SURGERY) - Family History Family History: Reports: Unknown - Social History Smoking Status: Current some day smoker, Light tobacco smoker Hx Substance Use: Yes ("I SMOKE WEED") Alcohol Screening: None - Immunizations Tetanus Shot up to Date: Yes Physical Exam - Physical Exam Appearance: Obese Ill-appearing: Mild Pain Distress: Severe Neck: Supple Respiratory: Airway patent Cardiovascular: Pulses normal, Tachycardia Musculoskeletal: Limited ROM (Left wrist ), Edema (Mild ) Skin: Warm, Dry Neurological: Alert, Oriented Psychiatric: Anxious Critical Care Note - Critical Care Note Total Time (mins): 0 Course - Course Vital Signs: Temp Pulse Resp BP Pulse Ox 03/07/19 02:31 98.1 F 108 H 22 133/82 98 Departure - Departure Time of Disposition: 03:45 Disposition: HOME SELF-CARE Discharge Problem: Injury of upper extremity, Wrist arthritis Right wrist injury Qualifiers: Encounter type: initial encounter Qualified Code(s): S69.91XA - Unspecified injury of right wrist, hand and finger(s), initial encounter Instructions: Wrist Injury (ED), Arthralgia (ED), Swollen Joint (ED) Condition: Fair Pt referred to PMD for follow-up: Yes IPMP verified?: No Additional Instructions: Continue antibiotics and Home [place] follow up with Dr Main Allergies/Adverse Reactions: Allergies aspirin Adverse Reaction (Verified 03/07/19 02:46) UPSET STOMACH codeine Adverse Reaction (Verified 03/07/19 02:46) Itching Penicillins Adverse Reaction (Verified 03/07/19 02:46) THROAT SWELLS sumatriptan [From Imitrex] Adverse Reaction (Verified 03/07/19 02:46) HIGH BLOOD PRESSURE "messes with my heart" sumatriptan succinate [From Imitrex] Adverse Reaction (Verified 03/07/19 02:46) HIGH BLOOD PRESSURE "messes with my heart" tramadol [From Ultram] Adverse Reaction (Verified 03/07/19 02:46) Hives patient states she is not actually allergic to this Home Medications: Ambulatory Orders Albuterol Sulfate [Proair Hfa] 2 puff IH Q4H PRN 02/02/18 Hydrocodone Bit/Acetaminophen [[place] 5-325] 1 tab PO TID 04/18/18 Butalb/Acetaminophen/Caffeine [Dpwrxl-Xqiiximx-Oiwv 50-325-40] 1 each PO BID PRN 09/04/18 Cyclobenzaprine HCl [Flexeril] 10 mg PO BID 11/03/18 Gabapentin 400 mg PO TID 01/14/19 Clindamycin HCl 300 mg PO TID 03/07/19 Sulfamethoxazole/Trimethoprim [Bactrim Ds 800/160 mg] 1 tab PO Q12HR 03/07/19 Disposition Discussed With: Patient
== END 2019-03-07 04:09 | disposition home or self-care (01) ==
LOC: ED 02:28
DX: M19.032 Primary osteoarthritis, left wrist (principal); S69.92XD Unspecified injury of left wrist, hand and finger(s), subsequent encounter; W19.XXXD Unspecified fall, subsequent encounter; F17.210 Nicotine dependence, cigarettes, uncomplicated
CPT/HCPCS: 96372; 99282